=== PATIENT | female | born 1990 | race Hispanic/Latino ===

== ENCOUNTER 2016-10-24 16:14 | Emergency (ER) | payer OTHER ==
[2016-10-24 16:24] VITALS: BMI 29.0
[2016-10-24] MEDS ORDERED: Sodium Chloride 0.9% 1,000 ML IV STA (16:33)
--- NOTE | 2016-10-24 17:02 | ED PDOC ---
Arrival/HPI - General Chief Complaint: Abdominal Pain Time Seen by Provider: 10/24/16 16:17 Historian: Patient - History of Present Illness Narrative History of Present Illness (Text): 10/24/16 16:59 26yo female who present with complaint of tightening suprapubic abdominal pain since this morning with associated nausea. The mother who was by the bedside states patient has been having this pain intermittently for months now. Saw her APPLICATION PACKAGING CONSULTANT and was told she have ovarian cyst. she is s/p hysterectomy. Denies vomiting , diarrhea, constipation, dysuria, hematuria, fever, chills, back pain, vaginal discharge. Past Medical History - Provider Review Nursing Documentation Reviewed: Yes - Infectious Disease Hx of Infectious Diseases: None - Tetanus Immunization Tetanus Immunization: Unknown - Cardiac Hx Pacemaker: No - Pulmonary Hx Respiratory Disorders: No - Neurological Hx Paralysis: No - HEENT Hx HEENT Disorder: No - Renal Hx Renal Disorder: No - Endocrine/Metabolic Hx Endocrine Disorders: No - Hematological/Oncological Hx Blood Transfusions: No Hx Blood Transfusion Reaction: No - Integumentary Hx Dermatological Disorder: No - Musculoskeletal/Rheumatological Hx Musculoskeletal Disorders: No - Gastrointestinal Hx Gastrointestinal Disorders: No - Genitourinary/Gynecological Hx Genitourinary Disorders: Yes Hx Sexually Transmitted Diseases: Yes Other/Comment: cyst on overy - Psychiatric Hx Depression: Yes Hx Substance Use: No (unk) - Surgical History Hx Hysterectomy: Yes - Anesthesia Hx Anesthesia Reactions: No Hx Malignant Hyperthermia: No - Suicidal Assessment Feels Threatened In Home Enviroment: No Family/Social History - Physician Review Nursing Documentation Reviewed: Yes Family/Social History: Unknown Family HX Smoking Status: Former Smoker Hx Alcohol Use: Yes Frequency of alcohol use: Socially Hx Substance Use: No (unk) Hx Substance Use Treatment: No Allergies/Home Meds Allergies/Adverse Reactions: Allergies No Known Allergies Allergy (Verified 10/24/16 16:24) Home Medications: Home Meds Medication Instructions Recorded Confirmed Atorvastatin [Lipitor] 10 mg PO DAILY 10/24/16 10/24/16 Cetirizine HCl [Zyrtec] 10 mg PO DAILY 10/24/16 10/24/16 Review of Systems - Physician Review All systems were reviewed & negative as marked: Yes - Review of Systems Constitutional: Normal Eyes: Normal ENT: Normal Respiratory: Normal Cardiovascular: Normal Gastrointestinal: Abdominal Pain, Nausea. absent: Constipation, Diarrhea, Vomiting, Hematochezia, Hematemesis Genitourinary Female: Normal Musculoskeletal: Normal Skin: Normal Neurological: Normal Endocrine: Normal Hemo/Lymphatic: Normal Psychiatric: Normal Physical Exam Vital Signs Reviewed: Yes Vital Signs Temp Pulse Resp BP Pulse Ox 10/24/16 18:34 98 F 75 19 114/59 L 99 10/24/16 16:20 98.8 F 108 H 18 112/81 97 Temperature: Afebrile Blood Pressure: Normal Pulse: Regular Respiratory Rate: Normal Appearance: Positive for: Well-Appearing, Non-Toxic, Comfortable Pain Distress: None Mental Status: Positive for: Alert and Oriented X 3 - Systems Exam Head: Present: Atraumatic, Normocephalic Pupils: Present: PERRL Extroacular Muscles: Present: EOMI Conjunctiva: Present: Normal Mouth: Present: Moist Mucous Membranes Neck: Present: Normal Range of Motion Respiratory/Chest: Present: Clear to Auscultation, Good Air Exchange. No: Respiratory Distress, Accessory Muscle Use Cardiovascular: Present: Regular Rate and Rhythm, Normal S1, S2. No: Murmurs Abdomen: Present: Tenderness (suprapubic tenderness), Normal Bowel Sounds, Other (Soft). No: Distention, Peritoneal Signs, Rebound, Guarding, McBurney's Point Tender, Rovsing's Sign Present Back: Present: Normal Inspection Upper Extremity: Present: Normal Inspection. No: Cyanosis, Edema Lower Extremity: Present: Normal Inspection. No: Edema Neurological: Present: GCS=15, CN II-XII Intact, Speech Normal Skin: Present: Warm, Dry, Normal Color. No: Rashes Psychiatric: Present: Alert, Oriented x 3, Normal Insight, Normal Concentration Medical Decision Making ED Course and Treatment: 10/24/16 22:57 PT was comfortable in ED. Lab was unremarkable. Transvaginal US was negative PT reported intermittent left ear pain while in ED and exam was benign. She was referred to ENT and her APPLICATION PACKAGING CONSULTANT. TRT ED for any new or worsening symptoms. She was given Ibuprofen 600mg for her pain. TRT ED for any new or worsening symptoms - Lab Interpretations Lab Results: 10/24/16 16:45 10/24/16 16:45 Lab Results 10/24/16 16:45: Sodium 137, Potassium 4.4, Chloride 103, Carbon Dioxide 20 L, Anion Gap 18, BUN 12, Creatinine 0.8, Est GFR ( Amer) > 60, Est GFR (Non- Af Amer) > 60, Random Glucose 117 H, Calcium 9.4, Total Bilirubin 1.9 H, AST 26 , ALT 13, Alkaline Phosphatase 97, Total Protein 8.4 H, Albumin 4.8, Globulin 3.6, Albumin/Globulin Ratio 1.3, Lipase 23 10/24/16 16:45: PT 12.7 H, INR 1.18 H, APTT 32.4 H 10/24/16 16:45: WBC 6.4 D, RBC 5.00, Hgb 14.9, Hct 42.5, MCV 85.0, MCH 29.8, MCHC 35.1, RDW 12.6, Plt Count 305, MPV 9.8, Gran % 68.3 H, Lymph % (Auto) 23.6 , [place] % (Auto) 6.8 H, Eos % (Auto) 1.1 L, Baso % (Auto) 0.2, Gran # 4.35, Lymph # 1.5, [place] # 0.4, Eos # 0.1, Baso # 0.01 10/24/16 16:40: Urine Color yellow, Urine Appearance Slight-cloudy, Urine pH 6.0 , Ur Specific [place] >= 1.030, Urine Protein 30 H, Urine Glucose (UA) Negative , Urine Ketones >=80, Urine Blood Negative, Urine Nitrate Negative, Urine Bilirubin Moderate H, Urine Urobilinogen 2.0 H, Ur Leukocyte Esterase Negative, Urine RBC TEST NOT PERFORMED, Urine WBC 5 - 10, Ur Epithelial Cells 6 - 8, Amorphous Sediment Moderate, Urine Bacteria Small - RAD Interpretation Radiology Orders: 10/24/16 16:34 TRANSVAGINAL [US] Stat - Medication Orders Current Medication Orders: Discontinued Medications Sodium Chloride (Sodium Chloride 0.9%) 1,000 mls @ 1,000 mls/hr IV .Q1H STA Stop: 10/24/16 17:32 Last Admin: 10/24/16 16:52 Dose: 1,000 mls/hr Ketorolac Tromethamine (Toradol) 30 mg IVP STAT STA Stop: 10/24/16 16:34 Last Admin: 10/24/16 16:59 Dose: 30 mg Re-Assess: MERRY Pain Assessment Document 10/24/16 17:59 GMI (Rec: 10/24/16 18:[address] [facility] [id number]) Pain Reassessment Is this a pain reassessment? Yes Sleep Is patient sleeping during reassessment? No Presence of Pain Presence of Pain No Ondansetron HCl (Zofran Inj) 4 mg IVP STAT STA Stop: 10/24/16 16:34 Last Admin: 10/24/16 16:58 Dose: 4 mg Disposition/Present on Arrival - Present on Arrival Any Indicators Present on Arrival: No History of DVT/PE: No History of Uncontrolled Diabetes: No Urinary Catheter: No History of Decub. Ulcer: No History Surgical Site Infection Following: None - Disposition Have Diagnosis and Disposition been Completed?: Yes Diagnosis: Pelvic pain Disposition: HOME/ ROUTINE Disposition Time: 18:10 Patient Plan: Discharge Condition: STABLE Discharge Instructions (ExitCare): Pelvic Pain (ED) Additional Instructions: Follow up with your doctor/APPLICATION PACKAGING CONSULTANT Return to ED for any new symptoms Prescriptions: Ibuprofen [Motrin Tab] 600 mg PO Q6 #20 tab Referrals: Xavier Singh JD, MD [Primary Care Provider] - Follow up with primary Justin Garnett DO [Staff Provider] - Follow up with primary
[2016-10-24 17:10] LABS: BASO # 0.01 K/mm3 (0.0-2.0); BASO % 0.2 % (0.0-3.0); EOS # 0.1 (0.0-0.7); EOS % 1.1 % (1.5-5.0); GRAN # 4.35 (1.4-6.5); GRAN % 68.3 % (50.0-68.0); HEMOGLOBIN 14.9 gm/dL (12.0-16.0); LYMPH # 1.5 (1.2-3.4); LYMPH % 23.6 % (22.0-35.0); MEAN CORPUSCULAR HEMOGLOBIN 29.8 pg (25.0-35.0); MEAN CORPUSCULAR HGB CONC 35.1 g/dl (31.0-37.0); MEAN PLATELET VOLUME 9.8 fl (7.0-11.0); MONO # 0.4 (0.1-0.6); MONO % 6.8 % (1.0-6.0); PLATELET COUNT 305 10^3/uL (120.0-450.0); RED CELL DISTRIBUTION WIDTH 12.6 % (11.5-14.5); WHITE BLOOD COUNT 6.4 10^3/ul (4.5-11.0)
[2016-10-24 17:11] LABS: URINE BILIRUBIN MODERATE (NEGATIVE); URINE BLOOD NEGATIVE (NEGATIVE); URINE GLUCOSE (UA) NEGATIVE (NEGATIVE); URINE LEUKOCYTE ESTERASE NEGATIVE Leu/uL (NEGATIVE); URINE NITRATE NEGATIVE (NEGATIVE); URINE PROTEIN 30 mg/dL (<30 mg/dL)
[2016-10-24 17:13] LABS: URINE APPEARANCE SLIGHT-CLOUDY (CLEAR)
[2016-10-24 17:14] LABS: URINE AMORPHOUS SEDIMENT MODERATE; URINE BACTERIA SMALL (NEG)
[2016-10-24 17:15] LABS: ALB/GLOB RATIO 1.3 (1.1-1.8); ALBUMIN 4.8 g/dL (3.0-4.8); ALT/SGPT 13 U/L (7-56); AST/SGOT 26 U/L (15-39); BLOOD UREA NITROGEN 12 mg/dL (7-21); CALCIUM 9.4 mg/dL (8.4-10.5); GFR AFRICAN-AMERICAN > 60; GFR NON-AFRICAN AMERICAN > 60; LIPASE 23 U/L (23-300)
[2016-10-24 17:24] LABS: INR 1.18 (0.93-1.08); PARTIAL THROMBOPLASTIN TIME 32.4 Seconds (23.7-30.8); PROTHROMBIN TIME 12.7 Seconds (9.9-11.8)
--- NOTE | 2016-10-24 18:04 | US ---
EXAM: US Pelvis, Transvaginal CLINICAL HISTORY: 26 years old, female; Pain; Pelvic pain; Prior surgery; Surgery date: 6+ months; Surgery type: Hysterectomy; LMP 6 years ago TECHNIQUE: Real-time transvaginal pelvic ultrasound (complete) with image documentation. Transvaginal imaging was used for better evaluation of the endometrium and adnexa. EXAM DATE/TIME: 10/24/2016 4:34 PM COMPARISON: Prior images are not available for review. Correlation is made with a report dated 09/11/16 FINDINGS: Uterus: Uterus is surgically absent. Right ovary: Right ovary measures 3.4 1.9 x 3 cm.There are multiple small follicles. There is intraovarian blood flow. Left ovary: Left ovary is not identified. Free fluid: There is trace fluid in the right adnexa IMPRESSION: Hysterectomy nonvisualization of the left ovary; normal appearing right ovary, no torsion
[2016-10-24 18:35] VITALS: BP 114/59; PULSE 75; RESP 19; TEMP 98; O2SAT 99
== END 2016-10-24 18:38 | disposition home or self-care (01) ==
LOC: ED 16:14
DX: R10.2 Pelvic and perineal pain (principal)
CPT/HCPCS: 76830; 80053; 81001; 83690; 85025; 85610; 85730; 87086; 96361; 96374; 96375; 99284; J1885; J2405; J7040

== ENCOUNTER 2016-10-26 08:09 | Inpatient (IN) | payer OTHER, MEDICAID ==
[2016-10-26 08:35] VITALS: BMI 29.5
--- NOTE | 2016-10-26 09:20 | ED PDOC ---
Arrival/HPI - General Chief Complaint: Psychiatric Evaluation Time Seen by Provider: 10/26/16 08:38 Historian: Patient - History of Present Illness Narrative History of Present Illness (Text): 10/26/16 09:15 A 26 year old female patient presents to the emergency department complaining of depression. Patient is refusing to speak, however she does answer yes or no questions with nodding head movements. HPI and ROS limited due to patients state. PMD: Dr. Xavier Singh Past Medical History - Provider Review Nursing Documentation Reviewed: Yes - Infectious Disease Hx of Infectious Diseases: None - Tetanus Immunization Tetanus Immunization: Unknown - Cardiac Hx Pacemaker: No - Pulmonary Hx Respiratory Disorders: No - Neurological Hx Paralysis: No - HEENT Hx HEENT Disorder: No - Renal Hx Renal Disorder: No - Endocrine/Metabolic Hx Endocrine Disorders: No - Hematological/Oncological Hx Blood Transfusions: No Hx Blood Transfusion Reaction: No - Integumentary Hx Dermatological Disorder: No - Musculoskeletal/Rheumatological Hx Musculoskeletal Disorders: No - Gastrointestinal Hx Gastrointestinal Disorders: No - Genitourinary/Gynecological Hx Genitourinary Disorders: Yes Hx Sexually Transmitted Diseases: Yes Other/Comment: cyst on overy - Psychiatric Hx Depression: Yes Hx Substance Use: No (unk) - Surgical History Hx Hysterectomy: Yes - Anesthesia Hx Anesthesia Reactions: No Hx Malignant Hyperthermia: No - Suicidal Assessment Feels Threatened In Home Enviroment: No Family/Social History - Physician Review Nursing Documentation Reviewed: Yes Family/Social History: No Known Family HX Smoking Status: Former Smoker Hx Alcohol Use: No Hx Substance Use: No (unk) Hx Substance Use Treatment: No Allergies/Home Meds Allergies/Adverse Reactions: Allergies No Known Allergies Allergy (Verified 10/26/16 09:13) Home Medications: Home Meds Medication Instructions Recorded Confirmed Atorvastatin [Lipitor] 10 mg PO DAILY 10/24/16 10/24/16 Cetirizine HCl [Zyrtec] 10 mg PO DAILY 10/24/16 10/24/16 Review of Systems - Review of Systems Systems not reviewed;Unavailable: Acuity of Condition Physical Exam Vital Signs Reviewed: Yes Vital Signs Temp Pulse Resp BP Pulse Ox 10/26/16 16:55 70 18 107/73 100 10/26/16 13:20 80 18 119/80 99 10/26/16 11:00 72 16 122/77 99 10/26/16 08:35 98.2 F 72 18 122/84 97 Temperature: Afebrile Blood Pressure: Normal Pulse: Regular Respiratory Rate: Normal Appearance: Positive for: Well-Appearing, Non-Toxic, Comfortable Pain Distress: None - Systems Exam Head: Present: Atraumatic, Normocephalic Pupils: Present: PERRL Extroacular Muscles: Present: EOMI Conjunctiva: Present: Normal Mouth: Present: Moist Mucous Membranes Neck: Present: Normal Range of Motion Respiratory/Chest: Present: Clear to Auscultation, Good Air Exchange. No: Respiratory Distress, Accessory Muscle Use Cardiovascular: Present: Regular Rate and Rhythm, Normal S1, S2. No: Murmurs Abdomen: Present: Normal Bowel Sounds. No: Tenderness, Distention, Peritoneal Signs Back: Present: Normal Inspection Upper Extremity: Present: Normal Inspection. No: Cyanosis, Edema Lower Extremity: Present: Normal Inspection. No: Edema Neurological: Present: GCS=15, CN II-XII Intact, Speech Normal Skin: Present: Warm, Dry, Normal Color. No: Rashes Psychiatric: Present: Alert, Depressed Mood Medical Decision Making ED Course and Treatment: 10/26/16 09:25 Impression: A 26 year old female with depression. Plan: -- EKG -- Labs -- Urinalysis -- Reassess and disposition Prior Visits: Notes and results from previous visits were reviewed. On 10/24/2016 patient came in complaining of abdominal pain. Patient was discharged home. Progress Notes: 10/26/16 11:01 Seen and evaluated by Dr. Crowley. Patient is still nonverbal. Dr. Crowley Place medication orders, and will reevaluate the patient for possible admission or screening. 10/26/16 13:26 Patient is now speaking, but is extremely uncooperative. Has been seen by crisis and will need to be screened. At this point patient will be placed on one -to-one rather than physical restraints and she will be reevaluated for possible physical restraints. 10/26/16 15:35 EKG shows normal sinus rhythm rate approximately 65 with a sinus arrhythmia and no acute ST or T-wave changes 10/26/16 17:50 Care of this patient will be endorsed to the night emergency department physician waiting for [facility] screeners and final disposition. - Lab Interpretations Lab Results: 10/26/16 09:30 10/26/16 09:30 Lab Results 10/26/16 13:20: Urine Opiates Screen Negative, Urine Methadone Screen Negative, Ur Barbiturates Screen Negative, Ur Phencyclidine Scrn Negative, Ur Amphetamines Screen Negative, U Benzodiazepines Scrn Negative, U Oth Cocaine Metabols Negative, U Cannabinoids Screen Negative 10/26/16 10:34: Urine Color Yellow, Urine Appearance Sl cloudy, Urine pH 6.0, Ur Specific [place] 1.025, Urine Protein 30 H, Urine Glucose (UA) Negative, Urine Ketones 15 H, Urine Blood Negative, Urine Nitrate Negative, Urine Bilirubin Small H, Urine Urobilinogen 0.2, Ur Leukocyte Esterase Negative, Urine RBC 0 - 2, Urine WBC 0 - 2, Ur Epithelial Cells 0 - 2, Calcium Oxalate Crystal Few, Urine Bacteria Few, Urine HCG, Qual Negative 10/26/16 09:30: Alcohol, Quantitative < 10 10/26/16 09:30: Salicylates < 1 L, Acetaminophen < 10.0 L 10/26/16 09:30: Sodium 143, Potassium 4.0, Chloride 108 H, Carbon Dioxide 25, Anion Gap 14, BUN 8, Creatinine 0.8, Est GFR ( Amer) > 60, Est GFR (Non- Af Amer) > 60, Random Glucose 88, Calcium 9.6, Total Bilirubin 1.1, AST 20, ALT 22, Alkaline Phosphatase 95, Total Creatine Kinase 35, Total Protein 7.7, Albumin 4.3, Globulin 3.3, Albumin/Globulin Ratio 1.3 10/26/16 09:30: WBC 5.4, RBC 4.73, Hgb 13.9, Hct 40.7, MCV 86.0, MCH 29.4, MCHC 34.2, RDW 12.9, Plt Count 278, MPV 9.8, Gran % 58.5, Lymph % (Auto) 29.3, [place] % (Auto) 10.3 H, Eos % (Auto) 1.5, Baso % (Auto) 0.4, Gran # 3.14, Lymph # 1.6, [place] # 0.6, Eos # 0.1, Baso # 0.02 I have reviewed the lab results: Yes - RAD Interpretation Radiology Orders: 10/26/16 14:27 CHEST PORTABLE [RAD] Stat Chest 1 view is read by the radiologist shows no acute findings Loss Prevention Consultant: Radiologist - Medication Orders Current Medication Orders: Lorazepam (Ativan) 2 mg IM Q6H PRN; Protocol PRN Reason: agitation/catatonia/aggression Ziprasidone (Geodon Inj) 20 mg IM Q6H PRN; Protocol PRN Reason: severe agitation Discontinued Medications Lorazepam (Ativan) 2 mg PO STAT STA PRN Reason: Protocol Stop: 10/26/16 10:58 Last Admin: 10/26/16 11:13 Dose: 2 mg Risperidone (Risperdal Oral Soln) 1 mg PO STAT STA PRN Reason: Protocol Stop: 10/26/16 10:58 Last Admin: 10/26/16 11:14 Dose: 1 mg - Scribe Statement The provider has reviewed the documentation as recorded by the [facility] training under Liane Bello Provider Scribe Attestation: All medical record entries made by the Scribe were at my direction and personally dictated by me. I have reviewed the chart and agree that the record accurately reflects my personal performance of the history, physical exam, medical decision making, and the department course for this patient. I have also personally directed, reviewed, and agree with the discharge instructions and disposition. Disposition/Present on Arrival - Present on Arrival Any Indicators Present on Arrival: No History of DVT/PE: No History of Uncontrolled Diabetes: No Urinary Catheter: No History of Decub. Ulcer: No History Surgical Site Infection Following: None - Disposition Have Diagnosis and Disposition been Completed?: Yes Diagnosis: Schizoaffective disorder Disposition Time: 18:37 Condition: GOOD Referrals: Xavier Singh JD, MD [Primary Care Provider] - Follow up with primary
[2016-10-26 09:49] LABS: BASO # 0.02 K/mm3 (0.0-2.0); BASO % 0.4 % (0.0-3.0); EOS # 0.1 (0.0-0.7); EOS % 1.5 % (1.5-5.0); GRAN # 3.14 (1.4-6.5); GRAN % 58.5 % (50.0-68.0); HEMOGLOBIN 13.9 gm/dL (12.0-16.0); LYMPH # 1.6 (1.2-3.4); LYMPH % 29.3 % (22.0-35.0); MEAN CORPUSCULAR HEMOGLOBIN 29.4 pg (25.0-35.0); MEAN CORPUSCULAR HGB CONC 34.2 g/dl (31.0-37.0); MEAN PLATELET VOLUME 9.8 fl (7.0-11.0); MONO # 0.6 (0.1-0.6); MONO % 10.3 % (1.0-6.0); PLATELET COUNT 278 10^3/uL (120.0-450.0); RBC 4.73 10^6/uL (3.5-6.1); RED CELL DISTRIBUTION WIDTH 12.9 % (11.5-14.5); WHITE BLOOD COUNT 5.4 10^3/ul (4.5-11.0)
[2016-10-26 09:59] LABS: ALB/GLOB RATIO 1.3 (1.1-1.8); ALBUMIN 4.3 g/dL (3.0-4.8); ALT/SGPT 22 U/L (7-56); AST/SGOT 20 U/L (15-39); BLOOD UREA NITROGEN 8 mg/dL (7-21); CALCIUM 9.6 mg/dL (8.4-10.5); GFR AFRICAN-AMERICAN > 60; GFR NON-AFRICAN AMERICAN > 60
[2016-10-26 10:23] LABS: SALICYLATE < 1 mg/dL (2.0-20.0)
[2016-10-26 10:30] LABS: ACETAMINOPHEN < 10.0 ug/ml (10.0-20.0)
[2016-10-26 10:43] LABS: URINE BILIRUBIN SMALL (NEGATIVE); URINE BLOOD NEGATIVE (NEGATIVE); URINE GLUCOSE (UA) NEGATIVE (NEGATIVE); URINE LEUKOCYTE ESTERASE NEGATIVE Leu/uL (NEGATIVE); URINE NITRATE NEGATIVE (NEGATIVE); URINE PROTEIN 30 mg/dL (<30 mg/dL); URINE UROBILINOGEN 0.2 E.U./dL (<1 E.U./dL)
[2016-10-26 10:44] LABS: URINE COLOR YELLOW (YELLOW)
[2016-10-26 10:51] LABS: URINE APPEARANCE SL CLOUDY (CLEAR); URINE EPITHELIAL CELLS 0 - 2 /hpf (0-5); URINE WBC 0 - 2 /hpf (0-6)
[2016-10-26 10:52] LABS: HCG,QUALITATIVE URINE NEGATIVE (NEGATIVE); URINE BACTERIA FEW (NEG); URINE CALCIUM OXALATE CRYSTALS FEW /hpf; URINE RBC 0 - 2 /hpf (0-2)
[2016-10-26 13:48] LABS: BARBITURATES, UR NEGATIVE (NEGATIVE); BENZODIAZEPINES, UR NEGATIVE (NEGATIVE); OPIATES, UR NEGATIVE (NEGATIVE); PHENCYCLIDINE, UR NEGATIVE (NEGATIVE)
--- NOTE | 2016-10-26 17:16 | RAD ---
HISTORY: PES COMPARISON: Prior chest radiograph 11/26/2015. FINDINGS: LUNGS: No active pulmonary disease. PLEURA: No significant pleural effusion identified, no pneumothorax apparent. CARDIOVASCULAR: Normal. OSSEOUS STRUCTURES: No significant abnormalities. VISUALIZED UPPER ABDOMEN: Normal. OTHER FINDINGS: None. IMPRESSION: No active disease. No significant interval change compared to 11/26/2015 radiograph.
--- NOTE | 2016-10-26 18:53 | CARD ---
APPROVED REPORT EKG Measurement Heart [id number] ID [id number] <Conclusion> Normal sinus rhythm with sinus arrhythmia Normal ECG
--- NOTE | 2016-10-27 01:24 | ED PDOC ---
Physical Exam Vital Signs Reviewed: Yes Temperature: Afebrile Blood Pressure: Normal Pulse: Regular Respiratory Rate: Normal Appearance: Positive for: Non-Toxic Pain Distress: None Mental Status: Positive for: Alert and Oriented X 3 <Sandro Waddell - Last Filed: 10/27/16 01:22> Medical Decision Making <Sandro Waddell - Last Filed: 10/27/16 01:22> - RAD Interpretation Seo Consultant: Radiologist <Corbin Stallings - Last Filed: 10/27/16 10:10> ED Course and Treatment: 10/26/16 19:00 Case endorsed to me by Dr. Cruz. Patient presents to the emergency department complaining of depression. Patient medically cleared, pending [facility] psych evaluation. (Sandro Waddell) 10/27/16 07:00 Case endorsed to me by Dr. Waddell. Patient is pending follow up on 2nd screening for reevaluation by [facility] psych evaluation. 10/27/16 09:02 Chest X-ray: Creator : Vasiliy Ricketts MD COMPARISON: Prior chest radiograph 11/26/2015. FINDINGS: LUNGS: No active pulmonary disease. PLEURA: No significant pleural effusion identified, no pneumothorax apparent. CARDIOVASCULAR: Normal. OSSEOUS STRUCTURES: No significant abnormalities. VISUALIZED UPPER ABDOMEN: Normal. OTHER FINDINGS: None. IMPRESSION: No active disease. No significant interval change compared to 2015 radiograph. 10/27/16 10:09 Patient was reevaluated by Dr. Carline Saleem who will admit her under her service for f/o schizoaffective disorder. (Corbin Stallings) - Lab Interpretations Lab Results: 10/26/16 09:30 10/26/16 09:30 Lab Results 10/26/16 13:20: Urine Opiates Screen Negative, Urine Methadone Screen Negative, Ur Barbiturates Screen Negative, Ur Phencyclidine Scrn Negative, Ur Amphetamines Screen Negative, U Benzodiazepines Scrn Negative, U Oth Cocaine Metabols Negative, U Cannabinoids Screen Negative 10/26/16 10:34: Urine Color Yellow, Urine Appearance Sl cloudy, Urine pH 6.0, Ur Specific [place] 1.025, Urine Protein 30 H, Urine Glucose (UA) Negative, Urine Ketones 15 H, Urine Blood Negative, Urine Nitrate Negative, Urine Bilirubin Small H, Urine Urobilinogen 0.2, Ur Leukocyte Esterase Negative, Urine RBC 0 - 2, Urine WBC 0 - 2, Ur Epithelial Cells 0 - 2, Calcium Oxalate Crystal Few, Urine Bacteria Few, Urine HCG, Qual Negative 10/26/16 09:30: Alcohol, Quantitative < 10 10/26/16 09:30: Salicylates < 1 L, Acetaminophen < 10.0 L 10/26/16 09:30: Sodium 143, Potassium 4.0, Chloride 108 H, Carbon Dioxide 25, Anion Gap 14, BUN 8, Creatinine 0.8, Est GFR ( Amer) > 60, Est GFR (Non- Af Amer) > 60, Random Glucose 88, Calcium 9.6, Total Bilirubin 1.1, AST 20, ALT 22, Alkaline Phosphatase 95, Total Creatine Kinase 35, Total Protein 7.7, Albumin 4.3, Globulin 3.3, Albumin/Globulin Ratio 1.3 10/26/16 09:30: WBC 5.4, RBC 4.73, Hgb 13.9, Hct 40.7, MCV 86.0, MCH 29.4, MCHC 34.2, RDW 12.9, Plt Count 278, MPV 9.8, Gran % 58.5, Lymph % (Auto) 29.3, [place] % (Auto) 10.3 H, Eos % (Auto) 1.5, Baso % (Auto) 0.4, Gran # 3.14, Lymph # 1.6, [place] # 0.6, Eos # 0.1, Baso # 0.02 - RAD Interpretation Radiology Orders: 10/26/16 14:27 CHEST PORTABLE [RAD] Stat - Medication Orders Current Medication Orders: Lorazepam (Ativan) 2 mg IM Q6H PRN; Protocol PRN Reason: agitation/catatonia/aggression Ziprasidone (Geodon Inj) 20 mg IM Q6H PRN; Protocol PRN Reason: severe agitation Discontinued Medications Lorazepam (Ativan) 2 mg PO STAT STA PRN Reason: Protocol Stop: 10/26/16 10:58 Last Admin: 10/26/16 11:13 Dose: 2 mg Risperidone (Risperdal Oral Soln) 1 mg PO STAT STA PRN Reason: Protocol Stop: 10/26/16 10:58 Last Admin: 10/26/16 11:14 Dose: 1 mg <Sandro Waddell - Last Filed: 10/27/16 01:22> - Scribe Statement The provider has reviewed the documentation as recorded by the Scribe <Corbin Stallings - Last Filed: 10/27/16 10:10> - Scribe Statement 10/27/2016 Corinne Crespoa Provider Scribe Attestation: All medical record entries made by the Scribe were at my direction and personally dictated by me. I have reviewed the chart and agree that the record accurately reflects my personal performance of the history, physical exam, medical decision making, and the department course for this patient. (Corbin Stallings) Disposition/Present on Arrival - Present on Arrival Any Indicators Present on Arrival: No History of DVT/PE: No History of Uncontrolled Diabetes: No Urinary Catheter: No History of Decub. Ulcer: No History Surgical Site Infection Following: None <ChanduzanaSandro - Last Filed: 10/27/16 01:22> - Present on Arrival Any Indicators Present on Arrival: No - Disposition Have Diagnosis and Disposition been Completed?: Yes Disposition Time: 10:10 Patient Plan: Admission <Corbin Stallings - Last Filed: 10/27/16 10:10> - Disposition Diagnosis: Schizoaffective disorder Disposition: HOSPITALIZED Patient Problems: Current Active Problems Problem Status Onset Schizoaffective disorder Acute Condition: FAIR Referrals: Xavier Singh JD, MD [Primary Care Provider] - Follow up with primary
[2016-10-27 10:21] VITALS: O2SAT 100
[2016-10-27] MEDS ORDERED: Magnesium Hydroxide Susp 30 ml UD PO PRN (11:38)
--- NOTE | 2016-10-27 12:43 | PCM.BM ---
<Sofia Foster - Last Filed: 10/27/16 12:40> Treatment Plan Problems - Problems identified on initial assessmt psychosis Date Initiated: 10/27/16 Time Initiated: 11:00 Assessment reference: NA Status: Active Priority: 1 agitation Date Initiated: 10/27/16 Time Initiated: 11:00 Assessment reference: NA Status: Active Priority: 2 high risk violence Date Initiated: 10/27/16 Time Initiated: 11:00 Assessment reference: NA Status: Active Priority: 3 medication adherence Date Initiated: 10/27/16 Time Initiated: 11:00 Assessment reference: NA Status: Active Priority: 4 ineffective mgt of thrrapeutic regimen Date Initiated: 10/27/16 Time Initiated: 11:00 Assessment reference: NA Status: Active Priority: 5 Treatment assets and liabiliti Patient Assests: ADL independent Patient Liabilities: live alone, poor support system, relationship conflicts ( homeless/uncooperative) - Milieu Protocol Maintain good personal hygiene: daily Encourage regular showers, daily Remind patient to perform daily oral care, daily Assist patient to perform ADL's Maintain personal safety: every shift Educate patient to report safety concerns to staff, every shift Monitor environment for contraband/sharps Medication safety: Monitor for expected outcome, potential side effects: every shift, Assess barriers to learning: every shift, Assess readiness for medication education: every shift Discharge/Continuing Care - Education Needs Education Needs: Patient Medication, Patient Diagnosis/Disease Process, Patient Coping Skills, Patient Placement options, Patient Community resources, Patient Activities of Daily Living, Patient Nutrition, Patient Health Practices/Safety - Discharge Discharge Criteria: Tolerates medication w/o severe side effects, Free of Suicidal thoughts, Free of paranoid thoughts, Free of agitation, Normal sleep pattern, Ability to care for self, Reduction of target symptoms Discharge to:: Home <Chiara Becerra - Last Filed: 11/01/16 15:51> Family Contact Family involvement: Famliy/SO not involved <Keyana Pak - Last Filed: 11/05/16 12:12>
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
--- NOTE | 2016-10-27 14:17 | CP.PCM.CON ---
History of Present Illness - History of Present Illness History of Present Illness: 26 yo female h/o schizoaffective ds presents with depression Review of Systems - Constitutional Constitutional: Headache Past Patient History - Infectious Disease Hx of Infectious Diseases: None - Tetanus Immunizations Tetanus Immunization: Unknown - Past Social History Smoking Status: Former Smoker - CARDIAC Hx Pacemaker: No - PULMONARY Hx Respiratory Disorders: No Hx Asthma: Yes - NEUROLOGICAL Hx Paralysis: No - HEENT Hx HEENT Problems: No - RENAL Hx Chronic Kidney Disease: No Hx Kidney Stones: Yes - ENDOCRINE/METABOLIC Hx Endocrine Disorders: No - HEMATOLOGICAL/ONCOLOGICAL Hx Blood Transfusions: No Hx Blood Transfusion Reaction: No - INTEGUMENTARY Hx Dermatological Problems: No - MUSCULOSKELETAL/RHEUMATOLOGICAL Hx Musculoskeletal Disorders: No - GASTROINTESTINAL Hx Gastrointestinal Disorders: No - GENITOURINARY/GYNECOLOGICAL Hx Genitourinary Disorders: Yes Hx Sexually Transmitted Disorders: Yes Other/Comment: cyst on overy - PSYCHIATRIC Hx Depression: Yes Hx Substance Use: No (unk) - SURGICAL HISTORY Hx Hysterectomy: Yes - ANESTHESIA Hx Anesthesia Reactions: No Hx Malignant Hyperthermia: No Meds Allergies/Adverse Reactions: Allergies Allergy/AdvReac Type Severity Reaction Status Date / Time No Known Allergies Allergy Verified 10/26/16 09:13 - Medications Medications: Current Medications Acetaminophen (Tylenol 325mg Tab) 650 mg PO Q4 PRN PRN Reason: Pain, Mild (1-3) Al Hydrox/Mg Hydrox/Simethicone (Maalox Plus 30 Ml) 30 ml PO DAILY PRN PRN Reason: Upset Stomach Lorazepam (Ativan) 2 mg IM Q6H PRN; Protocol PRN Reason: agitation/catatonia/aggression Lorazepam (Ativan) 0.5 mg PO [facility]HS [facility] PRN Reason: Protocol Magnesium Hydroxide (Milk Of Magnesia) 30 ml PO DAILY PRN PRN Reason: Constipation Mirtazapine (Remeron) 15 mg PO HS [facility] Quetiapine Fumarate (Seroquel) 50 mg PO AM[facility] PRN Reason: Protocol Ziprasidone (Geodon Inj) 20 mg IM Q6H PRN; Protocol PRN Reason: severe agitation Ziprasidone (Geodon Cap) 20 mg PO Q6H PRN; Protocol PRN Reason: agitation/psychosis Physical Exam - Constitutional Appears: No Acute Distress - Head Exam Head Exam: ATRAUMATIC, NORMAL INSPECTION, NORMOCEPHALIC - Eye Exam Eye Exam: EOMI, Normal appearance, PERRL Pupil Exam: PERRL - ENT Exam ENT Exam: Mucous Membranes Moist - Neck Exam Neck exam: Positive for: Normal Inspection - Respiratory Exam Respiratory Exam: Clear to Auscultation Bilateral, NORMAL BREATHING PATTERN - Cardiovascular Exam Cardiovascular Exam: REGULAR RHYTHM - GI/Abdominal Exam GI & Abdominal Exam: Normal Bowel Sounds, Soft - Neurological Exam Neurological exam: Oriented x3 - Psychiatric Exam Psychiatric exam: Depressed, Flat Affect - Skin Skin Exam: Normal Color, Warm Results - Vital Signs Recent Vital Signs: Last Vital Signs Temp 97.9 F 10/27/16 10:13 Pulse 72 10/27/16 10:13 Resp 18 10/27/16 10:13 BP 112/55 L 10/27/16 10:13 Pulse Ox 100 10/27/16 10:13 - Labs Result Diagrams: 10/26/16 09:30 10/26/16 09:30 Assessment & Plan (1) Headache Status: Acute (2) Schizoaffective disorder Status: Acute - Assessment and Plan (Free Text) Plan: tylenol prn, psych f/u - Date & Time Date: 10/27/16 Time: 13:30
--- NOTE | 2016-10-28 09:38 | CP.PCM.PN ---
Subjective - Date & Time of Evaluation Date of Evaluation: 10/28/16 Time of Evaluation: 09:25 - Subjective Subjective: headache slightly better today, more verbal, NAD Objective - Vital Signs/Intake and Output Vital Signs (last 24 hours): Temp Pulse Resp BP Pulse Ox 97.9 F 80 20 95/54 L 100 10/28/16 07:18 10/28/16 07:18 10/28/16 07:18 10/28/16 07:18 10/27/16 10:13 - Medications Medications: Current Medications Acetaminophen (Tylenol 325mg Tab) 650 mg PO Q4 PRN PRN Reason: Pain, Mild (1-3) Al Hydrox/Mg Hydrox/Simethicone (Maalox Plus 30 Ml) 30 ml PO DAILY PRN PRN Reason: Upset Stomach Lorazepam (Ativan) 2 mg IM Q6H PRN; Protocol PRN Reason: agitation/catatonia/aggression Lorazepam (Ativan) 0.5 mg PO AMHS [facility] PRN Reason: Protocol Last Admin: 10/27/16 21:40 Dose: 0.5 mg Lorazepam (Ativan) 0.5 mg PO TID PRN; Protocol PRN Reason: Agitation Last Admin: 10/27/16 16:18 Dose: 0.5 mg Magnesium Hydroxide (Milk Of Magnesia) 30 ml PO DAILY PRN PRN Reason: Constipation Mirtazapine (Remeron) 15 mg PO HS [facility] Last Admin: 10/27/16 21:40 Dose: 15 mg Quetiapine Fumarate (Seroquel) 50 mg PO AMHS [facility] PRN Reason: Protocol Last Admin: 10/27/16 21:40 Dose: 50 mg Ziprasidone (Geodon Inj) 20 mg IM Q6H PRN; Protocol PRN Reason: severe agitation Ziprasidone (Geodon Cap) 20 mg PO Q6H PRN; Protocol PRN Reason: agitation/psychosis Last Admin: 10/27/16 14:00 Dose: 20 mg - Respiratory Exam Respiratory Exam: Clear to Ausculation Bilateral, NORMAL BREATHING PATTERN - Cardiovascular Exam Cardiovascular Exam: REGULAR RHYTHM - GI/Abdominal Exam GI & Abdominal Exam: Soft, Normal Bowel Sounds - Extremities Exam Extremities Exam: Normal Inspection - Neurological Exam Neurological Exam: Alert, Awake, Oriented x3 - Psychiatric Exam Psychiatric exam: Depressed, Flat Affect - Skin Skin Exam: Dry, Warm Assessment and Plan (1) Headache Status: Acute (2) Schizoaffective disorder Status: Acute - Assessment and Plan (Free Text) Plan: tylenol prn, continue psych f/u and tx
--- NOTE | 2016-10-28 15:48 | PCM.PYCHPN ---
Psychiatric Progress Note - Psychiatric Progress Note Patient seen today, length of contact: 25min Patient Chief Complaint: "...." (pt was mute, was starring at this fiction and nonfiction writer prose) Problems Identified/Issues Discussed: Suicide/ homicide prevention, past psychiatric h/o, current psychiatric symptoms , medical problems, risk/benefits and alternatives of medications, medications compliance, coping strategies, substance abuse h/o, relapse prevention, importance of follow up with psychiatrist and therapist, discharge plan. Medical Problems: see medical notes Diagnostic Results: 10/26/16 09:30 10/26/16 09:30 Lab Results 10/26/16 13:20: Urine Opiates Screen Negative, Urine Methadone Screen Negative, Ur Barbiturates Screen Negative, Ur Phencyclidine Scrn Negative, Ur Amphetamines Screen Negative, U Benzodiazepines Scrn Negative, U Oth Cocaine Metabols Negative, U Cannabinoids Screen Negative 10/26/16 10:34: Urine Color Yellow, Urine Appearance Sl cloudy, Urine pH 6.0, Ur Specific [place] 1.025, Urine Protein 30 H, Urine Glucose (UA) Negative, Urine Ketones 15 H, Urine Blood Negative, Urine Nitrate Negative, Urine Bilirubin Small H, Urine Urobilinogen 0.2, Ur Leukocyte Esterase Negative, Urine RBC 0 - 2, Urine WBC 0 - 2, Ur Epithelial Cells 0 - 2, Calcium Oxalate Crystal Few, Urine Bacteria Few, Urine HCG, Qual Negative 10/26/16 09:30: Alcohol, Quantitative < 10 10/26/16 09:30: Salicylates < 1 L, Acetaminophen < 10.0 L 10/26/16 09:30: Sodium 143, Potassium 4.0, Chloride 108 H, Carbon Dioxide 25, Anion Gap 14, BUN 8, Creatinine 0.8, Est GFR ( Amer) > 60, Est GFR (Non- Af Amer) > 60, Random Glucose 88, Calcium 9.6, Total Bilirubin 1.1, AST 20, ALT 22, Alkaline Phosphatase 95, Total Creatine Kinase 35, Total Protein 7.7, Albumin 4.3, Globulin 3.3, Albumin/Globulin Ratio 1.3 10/26/16 09:30: WBC 5.4, RBC 4.73, Hgb 13.9, Hct 40.7, MCV 86.0, MCH 29.4, MCHC 34.2, RDW 12.9, Plt Count 278, MPV 9.8, Gran % 58.5, Lymph % (Auto) 29.3, [place] % (Auto) 10.3 H, Eos % (Auto) 1.5, Baso % (Auto) 0.4, Gran # 3.14, Lymph # 1.6, [place] # 0.6, Eos # 0.1, Baso # 0.02 Vital Signs Temp Pulse Resp BP Pulse Ox 10/28/16 07:18 97.9 F 80 20 95/54 L 10/27/16 16:00 76 102/68 10/27/16 10:13 97.9 F 72 18 112/55 L 100 10/27/16 00:42 97.8 F 70 16 92/58 L 99 10/26/16 16:55 70 18 107/73 100 10/26/16 13:20 80 18 119/80 99 10/26/16 11:00 72 16 122/77 99 10/26/16 08:35 98.2 F 72 18 122/84 97 DSM 5 Symptoms Update: Shortly pt is 26yo female with long h/o schizoaffective disorder, h/o inpatient hospitalizations, [place] [facility] August [place] came to the ED c/o headache and chest pain, pt was found to be catatonic, was not talking, was refusing to give UA, annmarie Chen was called, for catatonia this fiction and nonfiction writer prose recommended to give Ativan 2mg+irsperdal liquid PO, pt was compliant, this fiction and nonfiction writer prose recommended screening by [facility] for involuntary commitment, but during the interview by the screener over night, pt was in agreement for admission under voluntary status. who was identification technician last night recommended [facility] screening again, but pt was in agreement for voluntary admission. Pt initially was seen at ED, was not talking, was communicating with this fiction and nonfiction writer prose by nodding her head. pt obviously needs further evaluation and stabilization, meds initiation and titration. Abdoul attempted to speak to this patient at the morning time, patient presented to be catatonic, was staring at this fiction and nonfiction writer prose, not talking. as per nursing report patient has unpleasant attitude presented to be psychotic. Medication compliance is good. Patient tolerates medications well, no side effects observed or reported, aims 0 , no EPS. Impression: Schizoaffective disorder with catatonia Medication Change: Yes (Seroquel and Ativan increased) Medical Record Reviewed: Yes Consults ordered or reviewed: edical consult appreciated Mental Status Examination - Cognitive Function Orientation: Person Attention: Poor Concentration: Poor Association: Loose Fund of Knowledge: WNL - Mood Mood: Depressed, Anxious - Affect Affect: Flat - Formal Thought Process Formal Thought Process: Hallucinations, Delusions, Paranoia, Loosening of associations - Suicidal Ideation Suicidal Ideation: No - Homicidal Ideation Homicidal Ideation: No Goal/Treatment Plan - Goal/Treatment Plan Need for Continued Stay: Remain at risks for inpatient hospitalization, Severe depression anxiety, Discharge may exacerbated symptoms, Severe functional impairment Progress Toward Problem(s) and Goals/Treatment Plan: milieu/structure/supportive therapy will resume meds for the medical issues: Atorvastatin [Lipitor] 10 mg PO DAILY Ibuprofen [Motrin Tab] 600 mg PO Q6 Spironolactone [Aldactone] 25 mg PO DAILY as per Spironolactone [Aldactone] 50 mg PO HS as per seroquel will be started 50mg po amhs for psychosis will give remeron 15mg po hs for depression/insomnia will start ativan 0.5mg po 3 times a day for catatonia medical consult appreciated will give PRN meds will monitor closely pharmacy was called, pt was noncompliant with psychotiropic meds for the past year. Estimated Date of D/C: 11/04/16 (we'll monitor closely)
--- NOTE | 2016-10-29 11:17 | CP.PCM.PN ---
Subjective - Date & Time of Evaluation Date of Evaluation: 10/29/16 Time of Evaluation: 10:15 - Subjective Subjective: lethargic, arousable NAD Objective - Vital Signs/Intake and Output Vital Signs (last 24 hours): Temp Pulse Resp BP Pulse Ox 97.2 F L 99 H 20 97/71 L 100 10/29/16 07:28 10/29/16 07:28 10/29/16 07:28 10/29/16 07:28 10/27/16 10:13 - Medications Medications: Current Medications Acetaminophen (Tylenol 325mg Tab) 650 mg PO Q4 PRN PRN Reason: Pain, Mild (1-3) Al Hydrox/Mg Hydrox/Simethicone (Maalox Plus 30 Ml) 30 ml PO DAILY PRN PRN Reason: Upset Stomach Lorazepam (Ativan) 2 mg IM Q6H PRN; Protocol PRN Reason: agitation/catatonia/aggression Lorazepam (Ativan) 0.5 mg PO AMHS [facility] PRN Reason: Protocol Last Admin: 10/29/16 10:00 Dose: 0.5 mg Lorazepam (Ativan) 0.5 mg PO TID PRN; Protocol PRN Reason: Agitation Last Admin: 10/27/16 16:18 Dose: 0.5 mg Lorazepam (Ativan) 0.5 mg PO 1600 [facility] PRN Reason: Protocol Last Admin: 10/28/16 16:41 Dose: 0.5 mg Magnesium Hydroxide (Milk Of Magnesia) 30 ml PO DAILY PRN PRN Reason: Constipation Mirtazapine (Remeron) 15 mg PO HS [facility] Last Admin: 10/28/16 22:13 Dose: 15 mg Quetiapine Fumarate (Seroquel) 100 mg PO AM[facility] PRN Reason: Protocol Last Admin: 10/29/16 10:01 Dose: 100 mg Ziprasidone (Geodon Inj) 20 mg IM Q6H PRN; Protocol PRN Reason: severe agitation Ziprasidone (Geodon Cap) 20 mg PO Q6H PRN; Protocol PRN Reason: agitation/psychosis Last Admin: 10/29/16 00:11 Dose: 20 mg - Respiratory Exam Respiratory Exam: Clear to Ausculation Bilateral, NORMAL BREATHING PATTERN - Cardiovascular Exam Cardiovascular Exam: REGULAR RHYTHM - GI/Abdominal Exam GI & Abdominal Exam: Soft, Normal Bowel Sounds - Neurological Exam Neurological Exam: Alert, Altered, Awake - Psychiatric Exam Psychiatric exam: Depressed, Flat Affect Assessment and Plan (1) Headache Status: Acute (2) Schizoaffective disorder Status: Acute - Assessment and Plan (Free Text) Plan: continue present rx, medically stable
--- NOTE | 2016-10-29 16:10 | PCM.PYCHPN ---
Psychiatric Progress Note - Psychiatric Progress Note Patient seen today, length of contact: 25min Patient Chief Complaint: "why you wake me up?" Problems Identified/Issues Discussed: Suicide/ homicide prevention, past psychiatric h/o, current psychiatric symptoms , medical problems, risk/benefits and alternatives of medications, medications compliance, coping strategies, substance abuse h/o, relapse prevention, importance of follow up with psychiatrist and therapist, discharge plan. Medical Problems: see medical notes Diagnostic Results: 10/26/16 09:30 10/26/16 09:30 Lab Results 10/26/16 13:20: Urine Opiates Screen Negative, Urine Methadone Screen Negative, Ur Barbiturates Screen Negative, Ur Phencyclidine Scrn Negative, Ur Amphetamines Screen Negative, U Benzodiazepines Scrn Negative, U Oth Cocaine Metabols Negative, U Cannabinoids Screen Negative 10/26/16 10:34: Urine Color Yellow, Urine Appearance Sl cloudy, Urine pH 6.0, Ur Specific [place] 1.025, Urine Protein 30 H, Urine Glucose (UA) Negative, Urine Ketones 15 H, Urine Blood Negative, Urine Nitrate Negative, Urine Bilirubin Small H, Urine Urobilinogen 0.2, Ur Leukocyte Esterase Negative, Urine RBC 0 - 2, Urine WBC 0 - 2, Ur Epithelial Cells 0 - 2, Calcium Oxalate Crystal Few, Urine Bacteria Few, Urine HCG, Qual Negative 10/26/16 09:30: Alcohol, Quantitative < 10 10/26/16 09:30: Salicylates < 1 L, Acetaminophen < 10.0 L 10/26/16 09:30: Sodium 143, Potassium 4.0, Chloride 108 H, Carbon Dioxide 25, Anion Gap 14, BUN 8, Creatinine 0.8, Est GFR ( Amer) > 60, Est GFR (Non- Af Amer) > 60, Random Glucose 88, Calcium 9.6, Total Bilirubin 1.1, AST 20, ALT 22, Alkaline Phosphatase 95, Total Creatine Kinase 35, Total Protein 7.7, Albumin 4.3, Globulin 3.3, Albumin/Globulin Ratio 1.3 10/26/16 09:30: WBC 5.4, RBC 4.73, Hgb 13.9, Hct 40.7, MCV 86.0, MCH 29.4, MCHC 34.2, RDW 12.9, Plt Count 278, MPV 9.8, Gran % 58.5, Lymph % (Auto) 29.3, [place] % (Auto) 10.3 H, Eos % (Auto) 1.5, Baso % (Auto) 0.4, Gran # 3.14, Lymph # 1.6, Gove # 0.6, Eos # 0.1, Baso # 0.02 Vital Signs Temp Pulse Resp BP Pulse Ox 10/28/16 07:18 97.9 F 80 20 95/54 L 10/27/16 16:00 76 102/68 10/27/16 10:13 97.9 F 72 18 112/55 L 100 10/27/16 00:42 97.8 F 70 16 92/58 L 99 10/26/16 16:55 70 18 107/73 100 10/26/16 13:20 80 18 119/80 99 10/26/16 11:00 72 16 122/77 99 10/26/16 08:35 98.2 F 72 18 122/84 97 DSM 5 Symptoms Update: Shortly pt is 26yo female with long h/o schizoaffective disorder, h/o inpatient hospitalizations, [place] [facility] [place] in August [place] came to the ED c/o headache and chest pain, pt was found to be catatonic, was not talking, was refusing to give UA, annmarie Chen was called, for catatonia this sheet writer recommended to give Ativan 2mg+irsperdal liquid PO, pt was compliant, this sheet writer recommended screening by [facility] [place] for involuntary commitment, but during the interview by the screener over night, pt was in agreement for admission under voluntary status. who was business system consultant last night recommended [facility] screening again, but pt was in agreement for voluntary admission. Pt initially was seen at ED, was not talking, was communicating with this sheet writer by nodding her head. pt obviously needs further evaluation and stabilization, meds initiation and titration. pt was seen at the tx team meeting, seems to be angry and irritable, pt was unhappy that this sheet writer woke pt up, pt said angry "would you like if I could wake you up?", good part that pt started to talk, but bad part pt is irritable and angry. pt is paranoid, refused to sign consent. then left the room. as per nursing report patient has unpleasant attitude presented to be psychotic , but meds compliance is good. Patient tolerates medications well, no side effects observed or reported, aims 0 , no EPS. Impression: Schizoaffective disorder with catatonia Medication Change: Yes (Seroquel and Ativan increased 10/28/16) Medical Record Reviewed: Yes Consults ordered or reviewed: edical consult appreciated Mental Status Examination - Cognitive Function Orientation: Person Attention: Poor Concentration: Poor Association: Loose Fund of Knowledge: WNL - Mood Mood: Depressed, Anxious - Affect Affect: Flat - Formal Thought Process Formal Thought Process: Hallucinations, Delusions, Paranoia, Loosening of associations - Suicidal Ideation Suicidal Ideation: No - Homicidal Ideation Homicidal Ideation: No Goal/Treatment Plan - Goal/Treatment Plan Need for Continued Stay: Remain at risks for inpatient hospitalization, Severe depression anxiety, Discharge may exacerbated symptoms, Severe functional impairment Progress Toward Problem(s) and Goals/Treatment Plan: milieu/structure/supportive therapy will resume meds for the medical issues: Atorvastatin [Lipitor] 10 mg PO DAILY Ibuprofen [Motrin Tab] 600 mg PO Q6 Spironolactone [Aldactone] 25 mg PO DAILY as per Spironolactone [Aldactone] 50 mg PO HS as per seroquel 100mg po [facility] for psychosis will give remeron 15mg po hs for depression/insomnia will start ativan 0.5mg po 3 times a day for catatonia medical consult appreciated will give PRN meds will monitor closely pharmacy was called, pt was noncompliant with psychotiropic meds for the past year. Estimated Date of D/C: 11/04/16 (we'll monitor closely)
[2016-10-29] MEDS: Alum-Mag Hydrox-Simethicone Susp (30 mL) PO PRN (20:19)
--- NOTE | 2016-10-30 09:25 | PCM.PYCHPN ---
Psychiatric Progress Note - Psychiatric Progress Note Patient seen today, length of contact: 25min Patient Chief Complaint: "depressed" Problems Identified/Issues Discussed: I reviewed assessment and recent notes. Patient has been labile and difficult on the unit. Can be verbally abusive to staff and requires redirection. I met with patient at bedside this morning. Grooming is adequate. Patient is minimally cooperative in that she responds to my questioning with very brief affirmations or denials. She is still depressed and hopeless. Denies current suicidal thoughts but did have them on the unit at admission. She also denies hallucinations. Patient appears irritable and depressed. Responses are relevant to questioning and consistent with repeated questioning. Patient has been taking her medications and denies any side effects. There have been no behavioral issues overnight. Impulse control is tenuous and behavior remains unpredictable. Diagnostic Results: Schizoaffective disorder with catatonia Medication Change: No ( ) Medical Record Reviewed: Yes Mental Status Examination - Cognitive Function Orientation: Person Attention: Poor Concentration: Poor Association: Loose Fund of Knowledge: WNL - Mood Mood: Depressed, Anxious - Affect Affect: Flat - Formal Thought Process Formal Thought Process: Hallucinations, Delusions, Paranoia, Loosening of associations - Suicidal Ideation Suicidal Ideation: No - Homicidal Ideation Homicidal Ideation: No Goal/Treatment Plan - Goal/Treatment Plan Need for Continued Stay: Remain at risks for inpatient hospitalization, Severe depression anxiety, Discharge may exacerbated symptoms, Severe functional impairment Progress Toward Problem(s) and Goals/Treatment Plan: * c/w current tx and plan * No new weekend labs * Vitals reviewed and noted below: Selected Entries 10/29/16 10/29/16 07:28 16:29 Temperature 97.2 F L 98.4 F Pulse Rate 99 H 103 H Respiratory 20 Rate Blood Pressure 97/71 L 98/67 L Estimated Date of D/C: 11/04/16 (we'll monitor closely)
--- NOTE | 2016-10-30 09:27 | CP.PCM.PN ---
Subjective - Date & Time of Evaluation Date of Evaluation: 10/30/16 Time of Evaluation: 09:15 - Subjective Subjective: nad Objective - Vital Signs/Intake and Output Vital Signs (last 24 hours): Temp Pulse Resp BP Pulse Ox 98.4 F 103 H 20 98/67 L 100 10/29/16 16:29 10/29/16 16:29 10/29/16 07:28 10/29/16 16:29 10/27/16 10:13 - Medications Medications: Current Medications Acetaminophen (Tylenol 325mg Tab) 650 mg PO Q4 PRN PRN Reason: Pain, Mild (1-3) Al Hydrox/Mg Hydrox/Simethicone (Maalox Plus 30 Ml) 30 ml PO DAILY PRN PRN Reason: Upset Stomach Last Admin: 10/29/16 20:19 Dose: 30 ml Lorazepam (Ativan) 2 mg IM Q6H PRN; Protocol PRN Reason: agitation/catatonia/aggression Lorazepam (Ativan) 0.5 mg PO [facility] PRN Reason: Protocol Last Admin: 10/29/16 21:28 Dose: 0.5 mg Lorazepam (Ativan) 0.5 mg PO TID PRN; Protocol PRN Reason: Agitation Last Admin: 10/27/16 16:18 Dose: 0.5 mg Lorazepam (Ativan) 0.5 mg PO 1600 [facility] PRN Reason: Protocol Last Admin: 10/29/16 16:35 Dose: 0.5 mg Magnesium Hydroxide (Milk Of Magnesia) 30 ml PO DAILY PRN PRN Reason: Constipation Mirtazapine (Remeron) 15 mg PO HS [facility] Last Admin: 10/29/16 21:28 Dose: 15 mg Quetiapine Fumarate (Seroquel) 100 mg PO [facility] PRN Reason: Protocol Last Admin: 10/29/16 21:28 Dose: 100 mg Ziprasidone (Geodon Inj) 20 mg IM Q6H PRN; Protocol PRN Reason: severe agitation Ziprasidone (Geodon Cap) 20 mg PO Q6H PRN; Protocol PRN Reason: agitation/psychosis Last Admin: 10/29/16 21:28 Dose: 20 mg - Respiratory Exam Respiratory Exam: Clear to Ausculation Bilateral, NORMAL BREATHING PATTERN - Cardiovascular Exam Cardiovascular Exam: REGULAR RHYTHM - GI/Abdominal Exam GI & Abdominal Exam: Soft, Normal Bowel Sounds - Extremities Exam Extremities Exam: Normal Inspection - Neurological Exam Neurological Exam: Alert, Awake - Skin Skin Exam: Dry, Warm Assessment and Plan (1) Headache Status: Resolved (2) Schizoaffective disorder Status: Acute - Assessment and Plan (Free Text) Plan: no c/o headache, medically stable
[2016-10-30] MEDS: Alum-Mag Hydrox-Simethicone Susp (30 mL) PO PRN (19:23)
--- NOTE | 2016-10-31 00:11 | CP.PCM.PN ---
Subjective - Date & Time of Evaluation Date of Evaluation: 10/31/16 Time of Evaluation: 00:01 - Subjective Subjective: S:Requested a sleeping pill. Medical record was reviewed. O: Last Vital Signs 3 Temp 98.3 F 10/30/16 07:00 Pulse 107 H 10/30/16 16:00 Resp 16 10/30/16 07:00 BP 120/75 10/30/16 16:00 Pulse Ox 100 10/27/16 10:13 Alert , awake, not in distress. Ambulating, saw her in nursing station. LUNGS:Normal breathing pattern. A:adjustment insomnia. P:Benadryl 50 mg PO x 1. Objective - Vital Signs/Intake and Output Vital Signs (last 24 hours): Temp Pulse Resp BP Pulse Ox 98.3 F 107 H 16 120/75 100 10/30/16 07:00 10/30/16 16:00 10/30/16 07:00 10/30/16 16:00 10/27/16 10:13 - Medications Medications: Current Medications Acetaminophen (Tylenol 325mg Tab) 650 mg PO Q4 PRN PRN Reason: Pain, Mild (1-3) Al Hydrox/Mg Hydrox/Simethicone (Maalox Plus 30 Ml) 30 ml PO DAILY PRN PRN Reason: Upset Stomach Last Admin: 10/30/16 19:23 Dose: 30 ml Lorazepam (Ativan) 2 mg IM Q6H PRN; Protocol PRN Reason: agitation/catatonia/aggression Lorazepam (Ativan) 0.5 mg PO [facility] PRN Reason: Protocol Last Admin: 10/30/16 21:48 Dose: 0.5 mg Lorazepam (Ativan) 0.5 mg PO TID PRN; Protocol PRN Reason: Agitation Last Admin: 10/27/16 16:18 Dose: 0.5 mg Lorazepam (Ativan) 0.5 mg PO 1600 [facility] PRN Reason: Protocol Last Admin: 10/30/16 18:02 Dose: 0.5 mg Magnesium Hydroxide (Milk Of Magnesia) 30 ml PO DAILY PRN PRN Reason: Constipation Mirtazapine (Remeron) 15 mg PO HS [facility] Last Admin: 10/30/16 21:48 Dose: 15 mg Quetiapine Fumarate (Seroquel) 100 mg PO [facility] PRN Reason: Protocol Last Admin: 10/30/16 21:48 Dose: 100 mg Ziprasidone (Geodon Inj) 20 mg IM Q6H PRN; Protocol PRN Reason: severe agitation Ziprasidone (Geodon Cap) 20 mg PO Q6H PRN; Protocol PRN Reason: agitation/psychosis Last Admin: 10/30/16 21:49 Dose: 20 mg
--- NOTE | 2016-10-31 08:47 | PCM.PYCHPN ---
Psychiatric Progress Note - Psychiatric Progress Note Patient seen today, length of contact: 25min Patient Chief Complaint: "depressed" Problems Identified/Issues Discussed: I reviewed recent notes and met with patient at bedside. Patient continues to be labile but behavior is in better control on the unit. . I met with patient at bedside. Her grooming appears adequate. Again, patient is minimally cooperative and she responds to my questioning with very brief affirmations or denials. She is still depressed and suicidal thoughts. She also denies hallucinations. Patient appears michel and depressed. Indicates her sleep was "so-so". Received a Benadryl 50 mg x one dose with good effect. Responses are relevant to questioning (though brief) and consistent with repeat questioning. Patient has been taking her medications and denies any side effects. Nursing indicates that patient has been more visible and verbal. Still requires redirection. Attending groups. There were no behavioral issues overnight. Impulse control is tenuous and behavior is becoming a little more predictable Diagnostic Results: Schizoaffective disorder with catatonia Medication Change: Yes (Benadryl 50 mg po hs prn started 10/31/16) Medical Record Reviewed: Yes Mental Status Examination - Cognitive Function Orientation: Person Attention: Poor Concentration: Poor Association: Loose Fund of Knowledge: WNL - Mood Mood: Depressed, Anxious - Affect Affect: Flat - Formal Thought Process Formal Thought Process: Hallucinations, Delusions, Paranoia, Loosening of associations - Suicidal Ideation Suicidal Ideation: No - Homicidal Ideation Homicidal Ideation: No Goal/Treatment Plan - Goal/Treatment Plan Need for Continued Stay: Remain at risks for inpatient hospitalization, Severe depression anxiety, Discharge may exacerbated symptoms, Severe functional impairment Progress Toward Problem(s) and Goals/Treatment Plan: * c/w current tx and plan * Appreciate f/u by Dr. Singh on 10/30/16 and f/u by Dr. Allison on 10/31/16 * Started benadryl 50 mg HS prn: insomnia on 10/31/16 * No new weekend labs * Vitals reviewed and noted below: Selected Entries 10/30/16 10/30/16 07:00 16:00 Temperature 98.3 F Pulse Rate 103 H 107 H Respiratory 16 Rate Blood Pressure 103/62 120/75 Estimated Date of D/C: 11/04/16 (we'll monitor closely)
--- NOTE | 2016-10-31 12:41 | CP.PCM.PN ---
Subjective - Date & Time of Evaluation Date of Evaluation: 10/31/16 Time of Evaluation: 12:15 - Subjective Subjective: c/o back pain, ambulating without difficulty, no hematuria Objective - Vital Signs/Intake and Output Vital Signs (last 24 hours): Temp Pulse Resp BP Pulse Ox 97.5 F L 91 H 16 111/64 100 10/31/16 07:00 10/31/16 07:00 10/31/16 07:00 10/31/16 07:00 10/27/16 10:13 - Medications Medications: Current Medications Acetaminophen (Tylenol 325mg Tab) 650 mg PO Q4 PRN PRN Reason: Pain, Mild (1-3) Al Hydrox/Mg Hydrox/Simethicone (Maalox Plus 30 Ml) 30 ml PO DAILY PRN PRN Reason: Upset Stomach Last Admin: 10/30/16 19:23 Dose: 30 ml Diphenhydramine HCl (Benadryl) 50 mg PO HS PRN PRN Reason: Insomnia Lorazepam (Ativan) 2 mg IM Q6H PRN; Protocol PRN Reason: agitation/catatonia/aggression Lorazepam (Ativan) 0.5 mg PO [facility] PRN Reason: Protocol Last Admin: 10/31/16 08:59 Dose: 0.5 mg Lorazepam (Ativan) 0.5 mg PO TID PRN; Protocol PRN Reason: Agitation Last Admin: 10/27/16 16:18 Dose: 0.5 mg Lorazepam (Ativan) 0.5 mg PO 1600 [facility] PRN Reason: Protocol Last Admin: 10/30/16 18:02 Dose: 0.5 mg Magnesium Hydroxide (Milk Of Magnesia) 30 ml PO DAILY PRN PRN Reason: Constipation Meloxicam (Mobic) 15 mg PO DAILY [facility] Mirtazapine (Remeron) 15 mg PO HS [facility] Last Admin: 10/30/16 21:48 Dose: 15 mg Quetiapine Fumarate (Seroquel) 100 mg PO [facility] PRN Reason: Protocol Last Admin: 10/31/16 08:59 Dose: 100 mg Ziprasidone (Geodon Inj) 20 mg IM Q6H PRN; Protocol PRN Reason: severe agitation Ziprasidone (Geodon Cap) 20 mg PO Q6H PRN; Protocol PRN Reason: agitation/psychosis Last Admin: 10/30/16 21:49 Dose: 20 mg - Respiratory Exam Respiratory Exam: Clear to Ausculation Bilateral, NORMAL BREATHING PATTERN - Cardiovascular Exam Cardiovascular Exam: REGULAR RHYTHM - GI/Abdominal Exam GI & Abdominal Exam: Soft, Normal Bowel Sounds - Extremities Exam Extremities Exam: Full ROM - Neurological Exam Neurological Exam: Alert, Awake - Skin Skin Exam: Dry, Warm Assessment and Plan (1) Headache Status: Resolved (2) Schizoaffective disorder Status: Acute (3) Back pain Status: Acute - Assessment and Plan (Free Text) Plan: add meloxicam 15mg qd
[2016-10-31] MEDS: Alum-Mag Hydrox-Simethicone Susp (30 mL) PO PRN (20:05)
--- NOTE | 2016-11-01 10:50 | PCM.PYCHPN ---
Psychiatric Progress Note - Psychiatric Progress Note Patient seen today, length of contact: 25min Patient Chief Complaint: "depressed" Problems Identified/Issues Discussed: I reviewed recent notes and met with patient at bedside. Patient continues to be labile and demanding though with a little improvement in control over the weekend. She still doesn't appear engaged with the treatment process. I met with patient at bedside. Her grooming appears adequate. Again, patient is minimally cooperative and she responds to my questioning with very brief affirmations or denials. She is still depressed and denies suicidal thoughts. She also denies hallucinations. Patient appears michel and depressed. Affirms that she slept poorly and would like to take ambien in lieu of Benadryl 50 mg HS. Responses are relevant to questioning (though brief) and consistent with repeat questioning. Patient has been taking her medications and denies any side effects. Nursing indicates that patient has been michel and irritable, at times verbally abusive. Still requires redirection. Attending some groups.There were no major behavioral issues overnight. Impulse control is tenuous and behavior is becoming only a little more predictable Diagnostic Results: Schizoaffective disorder with catatonia Medication Change: Yes (ambien started on 11/01/16) Medical Record Reviewed: Yes Mental Status Examination - Cognitive Function Orientation: Person Attention: Poor Concentration: Poor Association: Loose Fund of Knowledge: WNL - Mood Mood: Depressed, Anxious - Affect Affect: Flat, Other (irritable, labile) - Speech Speech: Soft - Formal Thought Process Formal Thought Process: Hallucinations (denies), Delusions, Paranoia (guarded), Loosening of associations - Suicidal Ideation Suicidal Ideation: No - Homicidal Ideation Homicidal Ideation: No Goal/Treatment Plan - Goal/Treatment Plan Need for Continued Stay: Remain at risks for inpatient hospitalization, Severe depression anxiety, Discharge may exacerbated symptoms, Severe functional impairment Progress Toward Problem(s) and Goals/Treatment Plan: * c/w current tx and plan * Appreciate f/u by Dr. Singh on 10/30/16 and 10/31/16~added meloxicam 15mg qd * Appreciate f/u by Dr. Allison on 10/31/16 * Started ambien 10 mg hs on 11/01/16 for insomnia * No new overnight labs * Vitals reviewed and noted below: Selected Entries 10/31/16 10/31/16 07:00 16:28 Temperature 97.5 F L Pulse Rate 91 H 105 H Respiratory 16 Rate Blood Pressure 111/64 124/76 Estimated Date of D/C: 11/04/16 (we'll monitor closely)
--- NOTE | 2016-11-01 14:09 | CP.PCM.PN ---
Subjective - Date & Time of Evaluation Date of Evaluation: 11/01/16 Time of Evaluation: 10:30 - Subjective Subjective: nad Objective - Vital Signs/Intake and Output Vital Signs (last 24 hours): Temp Pulse Resp BP Pulse Ox 97.5 F L 105 H 16 124/76 100 10/31/16 07:00 10/31/16 16:28 10/31/16 07:00 10/31/16 16:28 10/27/16 10:13 - Medications Medications: Current Medications Acetaminophen (Tylenol 325mg Tab) 650 mg PO Q4 PRN PRN Reason: Pain, Mild (1-3) Al Hydrox/Mg Hydrox/Simethicone (Maalox Plus 30 Ml) 30 ml PO DAILY PRN PRN Reason: Upset Stomach Last Admin: 10/31/16 20:05 Dose: 30 ml Lorazepam (Ativan) 2 mg IM Q6H PRN; Protocol PRN Reason: agitation/catatonia/aggression Lorazepam (Ativan) 0.5 mg PO [facility] PRN Reason: Protocol Last Admin: 11/01/16 10:09 Dose: 0.5 mg Lorazepam (Ativan) 0.5 mg PO TID PRN; Protocol PRN Reason: Agitation Last Admin: 10/31/16 23:16 Dose: 0.5 mg Lorazepam (Ativan) 0.5 mg PO 1600 [facility] PRN Reason: Protocol Last Admin: 10/31/16 17:39 Dose: 0.5 mg Magnesium Hydroxide (Milk Of Magnesia) 30 ml PO DAILY PRN PRN Reason: Constipation Meloxicam (Mobic) 15 mg PO DAILY [facility] Last Admin: 11/01/16 10:12 Dose: 15 mg Mirtazapine (Remeron) 15 mg PO HS [facility] Last Admin: 10/31/16 21:23 Dose: 15 mg Quetiapine Fumarate (Seroquel) 100 mg PO [facility] PRN Reason: Protocol Last Admin: 11/01/16 10:10 Dose: 100 mg Ziprasidone (Geodon Inj) 20 mg IM Q6H PRN; Protocol PRN Reason: severe agitation Ziprasidone (Geodon Cap) 20 mg PO Q6H PRN; Protocol PRN Reason: agitation/psychosis Last Admin: 10/31/16 21:22 Dose: 20 mg Zolpidem Tartrate (Ambien) 10 mg PO HS PRN; Protocol PRN Reason: Insomnia Assessment and Plan (1) Headache Status: Resolved (2) Schizoaffective disorder Status: Acute (3) Back pain Status: Acute - Assessment and Plan (Free Text) Plan: medically stable
[2016-11-01] MEDS ORDERED: Home Med 1 UNIT TOP SCH ×2 (22:00→22:30)
[2016-11-01] MEDS: TRETINOIN 0.025% TOP SCH (22:10)
[2016-11-01] MEDS: ELIDEL 1% TOP SCH (22:10)
[2016-11-01] MEDS: CICLOPIROX 0.77% TOP SCH (22:11)
[2016-11-02] MEDS ORDERED: BENZOYL PEROXIDE 5% TOP SCH (08:00)
[2016-11-02] MEDS: [UNRECOGNIZED DRUG - OTHER] TOP SCH ×2 (10:15→20:38)
[2016-11-02] MEDS: CICLOPIROX 0.77% TOP SCH ×2 (10:15→20:38)
[2016-11-02] MEDS: ELIDEL 1% TOP SCH ×2 (10:16→20:39)
--- NOTE | 2016-11-02 14:04 | CP.PCM.PN ---
Subjective - Date & Time of Evaluation Date of Evaluation: 11/02/16 Time of Evaluation: 12:40 - Subjective Subjective: c/o some abd bloating, no n/v, otherwise nad Objective - Vital Signs/Intake and Output Vital Signs (last 24 hours): Temp Pulse Resp BP Pulse Ox 97.9 F 97 H 20 99/60 L 100 11/02/16 07:43 11/02/16 07:43 11/02/16 07:43 11/02/16 07:43 10/27/16 10:13 - Medications Medications: Current Medications Acetaminophen (Tylenol 325mg Tab) 650 mg PO Q4 PRN PRN Reason: Pain, Mild (1-3) Al Hydrox/Mg Hydrox/Simethicone (Maalox Plus 30 Ml) 30 ml PO DAILY PRN PRN Reason: Upset Stomach Last Admin: 10/31/16 20:05 Dose: 30 ml Haloperidol (Haldol) 5 mg PO [facility] PRN Reason: Protocol Haloperidol (Haldol) 5 mg PO 1600 [facility] PRN Reason: Protocol Home Med (Home Med) 1 unit TOP BID [facility] Last Admin: 11/02/16 10:15 Dose: 1 unit Home Med (Home Med) 1 unit TOP HS [facility] Last Admin: 11/01/16 22:10 Dose: 1 unit Home Med (Home Med) 1 unit TOP BID [facility] Last Admin: 11/02/16 10:16 Dose: 1 unit Home Med (Home Med) 1 unit TOP BID [facility] Last Admin: 11/02/16 10:15 Dose: 1 unit Lorazepam (Ativan) 2 mg IM Q6H PRN; Protocol PRN Reason: agitation/catatonia/aggression Lorazepam (Ativan) 0.5 mg PO [facility] PRN Reason: Protocol Last Admin: 11/02/16 09:16 Dose: 0.5 mg Lorazepam (Ativan) 0.5 mg PO TID PRN; Protocol PRN Reason: Agitation Last Admin: 10/31/16 23:16 Dose: 0.5 mg Lorazepam (Ativan) 0.5 mg PO 1600 [facility] PRN Reason: Protocol Last Admin: 11/01/16 18:48 Dose: Not Given Magnesium Hydroxide (Milk Of Magnesia) 30 ml PO DAILY PRN PRN Reason: Constipation Meloxicam (Mobic) 15 mg PO DAILY [facility] Last Admin: 11/02/16 09:18 Dose: 15 mg Mirtazapine (Remeron) 15 mg PO HS [facility] Last Admin: 11/01/16 22:09 Dose: 15 mg Ziprasidone (Geodon Inj) 20 mg IM Q6H PRN; Protocol PRN Reason: severe agitation Last Admin: 11/02/16 11:39 Dose: 20 mg Ziprasidone (Geodon Cap) 20 mg PO Q6H PRN; Protocol PRN Reason: agitation/psychosis Last Admin: 11/01/16 23:57 Dose: 20 mg Zolpidem Tartrate (Ambien) 10 mg PO HS PRN; Protocol PRN Reason: Insomnia - Respiratory Exam Respiratory Exam: Clear to Ausculation Bilateral, NORMAL BREATHING PATTERN - Cardiovascular Exam Cardiovascular Exam: REGULAR RHYTHM - GI/Abdominal Exam GI & Abdominal Exam: Soft, Normal Bowel Sounds - Extremities Exam Extremities Exam: Normal Inspection - Neurological Exam Neurological Exam: Alert, Awake - Psychiatric Exam Psychiatric exam: Flat Affect Assessment and Plan (1) Headache Status: Resolved (2) Schizoaffective disorder Status: Acute (3) Back pain Status: Acute - Assessment and Plan (Free Text) Plan: check labs in am, continue psych f/u
--- NOTE | 2016-11-02 15:58 | PCM.PYCHPN ---
Psychiatric Progress Note - Psychiatric Progress Note Patient seen today, length of contact: 30min Patient Chief Complaint: "I was hearing voices he, he, he, I was not able to talk, I was in other world..." Problems Identified/Issues Discussed: Suicide/ homicide prevention, past psychiatric h/o, current psychiatric symptoms , medical problems, risk/benefits and alternatives of medications, medications compliance, coping strategies, substance abuse h/o, relapse prevention, importance of follow up with psychiatrist and therapist, discharge plan. Medical Problems: see medical notes Diagnostic Results: 10/26/16 09:30 10/26/16 09:30 Lab Results 10/26/16 13:20: Urine Opiates Screen Negative, Urine Methadone Screen Negative, Ur Barbiturates Screen Negative, Ur Phencyclidine Scrn Negative, Ur Amphetamines Screen Negative, U Benzodiazepines Scrn Negative, U Oth Cocaine Metabols Negative, U Cannabinoids Screen Negative 10/26/16 10:34: Urine Color Yellow, Urine Appearance Sl cloudy, Urine pH 6.0, Ur Specific [place] 1.025, Urine Protein 30 H, Urine Glucose (UA) Negative, Urine Ketones 15 H, Urine Blood Negative, Urine Nitrate Negative, Urine Bilirubin Small H, Urine Urobilinogen 0.2, Ur Leukocyte Esterase Negative, Urine RBC 0 - 2, Urine WBC 0 - 2, Ur Epithelial Cells 0 - 2, Calcium Oxalate Crystal Few, Urine Bacteria Few, Urine HCG, Qual Negative 10/26/16 09:30: Alcohol, Quantitative < 10 10/26/16 09:30: Salicylates < 1 L, Acetaminophen < 10.0 L 10/26/16 09:30: Sodium 143, Potassium 4.0, Chloride 108 H, Carbon Dioxide 25, Anion Gap 14, BUN 8, Creatinine 0.8, Est GFR ( Amer) > 60, Est GFR (Non- Af Amer) > 60, Random Glucose 88, Calcium 9.6, Total Bilirubin 1.1, AST 20, ALT 22, Alkaline Phosphatase 95, Total Creatine Kinase 35, Total Protein 7.7, Albumin 4.3, Globulin 3.3, Albumin/Globulin Ratio 1.3 10/26/16 09:30: WBC 5.4, RBC 4.73, Hgb 13.9, Hct 40.7, MCV 86.0, MCH 29.4, MCHC 34.2, RDW 12.9, Plt Count 278, MPV 9.8, Gran % 58.5, Lymph % (Auto) 29.3, [place] % (Auto) 10.3 H, Eos % (Auto) 1.5, Baso % (Auto) 0.4, Gran # 3.14, Lymph # 1.6, [place] # 0.6, Eos # 0.1, Baso # 0.02 Vital Signs Temp Pulse Resp BP Pulse Ox 10/28/16 07:18 97.9 F 80 20 95/54 L 10/27/16 16:00 76 102/68 10/27/16 10:13 97.9 F 72 18 112/55 L 100 10/27/16 00:42 97.8 F 70 16 92/58 L 99 10/26/16 16:55 70 18 107/73 100 10/26/16 13:20 80 18 119/80 99 10/26/16 11:00 72 16 122/77 99 10/26/16 08:35 98.2 F 72 18 122/84 97 Temp Pulse Resp BP Pulse Ox 97.9 F 97 H 20 99/60 L 100 11/02/16 07:43 11/02/16 07:43 11/02/16 07:43 11/02/16 07:43 10/27/16 10:13 DSM 5 Symptoms Update: Shortly pt is 26yo female with long h/o schizoaffective disorder, h/o inpatient hospitalizations, most recent was [facility] (about a year ago in August 2015), came to the ED c/o headache and chest pain, pt was found to be catatonic, was not talking, was refusing to give UA, annmarie Chen was called, for catatonia this internal communications writer recommended to give Ativan 2mg+irsperdal liquid PO, pt was compliant, this internal communications writer recommended screening [place] [facility] for [place], but during the interview by the screener over night, pt was in agreement for admission under voluntary status. who was service promoter salesperson last night recommended [facility] screening again, but pt was in agreement for voluntary admission. Pt initially was seen at ED, was not talking, was communicating with this internal communications writer by nodding her head. pt obviously needs further evaluation and stabilization, meds initiation and titration. pt was seen at the tx team meeting, seems to be less angry, more talkative, pt was able to talk full sentences, pt said that she was having "some blockage, I was in other world, I was able to hear you but something was blocking me from talking back...". pt reported no hallucinations today, but prior to come to the hospital "I was hearing he, he, he, I don't know what does it mean". pt reported to feel angry about other pt J,A, "she is constantly asking for food , I don't want to hurt her, but she is annoying". staff was asked to observe both pt closely. pt asked to d/c seroquel and start haldol. pt was educated about both meds, pt asked Haldol to be initiated. later on pt was agitated, was cursing people, needed to stay in quiet room. Patient tolerates medications well, no side effects observed or reported, aims 0 , no EPS. Impression: Schizoaffective disorder with catatonia Medication Change: Yes (haldol started, seroquel d/c) Medical Record Reviewed: Yes Consults ordered or reviewed: edical consult appreciated Mental Status Examination - Cognitive Function Orientation: Person Attention: Poor Concentration: Poor Association: Loose Fund of Knowledge: WNL - Mood Mood: Depressed, Anxious - Affect Affect: Flat, Other (irritable, labile) - Speech Speech: Soft - Formal Thought Process Formal Thought Process: Hallucinations (denies), Delusions, Paranoia (guarded), Loosening of associations - Suicidal Ideation Suicidal Ideation: No - Homicidal Ideation Homicidal Ideation: No Goal/Treatment Plan - Goal/Treatment Plan Need for Continued Stay: Remain at risks for inpatient hospitalization, Severe depression anxiety, Discharge may exacerbated symptoms, Severe functional impairment Progress Toward Problem(s) and Goals/Treatment Plan: milieu/structure/supportive therapy will resume meds for the medical issues: Atorvastatin [Lipitor] 10 mg PO DAILY Ibuprofen [Motrin Tab] 600 mg PO Q6 Spironolactone [Aldactone] 25 mg PO DAILY as per Spironolactone [Aldactone] 50 mg PO HS as per seroquel will be d/c haldol 5mg tid for psychosis will give remeron 15mg po hs for depression/insomnia ativan 0.5mg po 3 times a day for catatonia medical consult appreciated will give PRN meds will monitor closely pharmacy was called, pt was noncompliant with psychotiropic meds for the past year. Estimated Date of D/C: 11/04/16 (we'll monitor closely)
[2016-11-02] MEDS: TRETINOIN 0.025% TOP SCH (21:32)
[2016-11-03] MEDS: Alum-Mag Hydrox-Simethicone Susp (30 mL) PO PRN ×2 (04:45→22:07)
[2016-11-03 08:19] LABS: BASO # 0.01 K/mm3 (0.0-2.0); BASO % 0.2 % (0.0-3.0); EOS # 0.2 (0.0-0.7); EOS % 3.1 % (1.5-5.0); GRAN # 2.71 (1.4-6.5); GRAN % 55.9 % (50.0-68.0); HEMOGLOBIN 11.9 gm/dL (12.0-16.0); LYMPH # 1.5 (1.2-3.4); LYMPH % 31.5 % (22.0-35.0); MEAN CORPUSCULAR HEMOGLOBIN 28.8 pg (25.0-35.0); MEAN CORPUSCULAR HGB CONC 33.5 g/dl (31.0-37.0); MEAN PLATELET VOLUME 9.7 fl (7.0-11.0); MONO # 0.5 (0.1-0.6); MONO % 9.3 % (1.0-6.0); PLATELET COUNT 247 10^3/uL (120.0-450.0); RBC 4.13 10^6/uL (3.5-6.1); RED CELL DISTRIBUTION WIDTH 12.8 % (11.5-14.5); WHITE BLOOD COUNT 4.9 10^3/ul (4.5-11.0)
[2016-11-03 08:28] LABS: ALB/GLOB RATIO 1.2 (1.1-1.8); ALBUMIN 3.4 g/dL (3.0-4.8); ALT/SGPT 276 U/L (7-56); AST/SGOT 274 U/L (15-39); BLOOD UREA NITROGEN 10 mg/dL (7-21); CALCIUM 8.6 mg/dL (8.4-10.5); GFR AFRICAN-AMERICAN > 60; GFR NON-AFRICAN AMERICAN > 60
[2016-11-03] MEDS: CICLOPIROX 0.77% TOP SCH ×2 (09:37→20:37)
[2016-11-03] MEDS: ELIDEL 1% TOP SCH ×2 (09:37→20:37)
[2016-11-03] MEDS: [UNRECOGNIZED DRUG - OTHER] TOP SCH ×2 (09:38→20:36)
--- NOTE | 2016-11-03 10:37 | CP.PCM.PN ---
Subjective - Date & Time of Evaluation Date of Evaluation: 11/03/16 Time of Evaluation: 09:30 - Subjective Subjective: nad Objective - Vital Signs/Intake and Output Vital Signs (last 24 hours): Temp Pulse Resp BP Pulse Ox 98.4 F 100 H 20 108/73 100 11/03/16 07:21 11/03/16 07:21 11/03/16 07:21 11/03/16 07:21 10/27/16 10:13 - Medications Medications: Current Medications Al Hydrox/Mg Hydrox/Simethicone (Maalox Plus 30 Ml) 30 ml PO DAILY PRN PRN Reason: Upset Stomach Last Admin: 11/03/16 04:45 Dose: 30 ml Haloperidol (Haldol) 5 mg PO AMHS [facility] PRN Reason: Protocol Last Admin: 11/03/16 09:17 Dose: 5 mg Haloperidol (Haldol) 5 mg PO 1600 [facility] PRN Reason: Protocol Last Admin: 11/02/16 17:38 Dose: 5 mg Home Med (Home Med) 1 unit TOP BID [facility] Last Admin: 11/03/16 09:37 Dose: 1 unit Home Med (Home Med) 1 unit TOP HS [facility] Last Admin: 11/02/16 21:32 Dose: 1 unit Home Med (Home Med) 1 unit TOP BID [facility] Last Admin: 11/03/16 09:37 Dose: 1 unit Home Med (Home Med) 1 unit TOP BID [facility] Last Admin: 11/03/16 09:38 Dose: 1 unit Lorazepam (Ativan) 2 mg IM Q6H PRN; Protocol PRN Reason: agitation/catatonia/aggression Lorazepam (Ativan) 0.5 mg PO AMHS [facility] PRN Reason: Protocol Last Admin: 11/03/16 09:17 Dose: 0.5 mg Lorazepam (Ativan) 0.5 mg PO TID PRN; Protocol PRN Reason: Agitation Last Admin: 10/31/16 23:16 Dose: 0.5 mg Lorazepam (Ativan) 0.5 mg PO 1600 [facility] PRN Reason: Protocol Last Admin: 11/02/16 17:38 Dose: 0.5 mg Magnesium Hydroxide (Milk Of Magnesia) 30 ml PO DAILY PRN PRN Reason: Constipation Meloxicam (Mobic) 15 mg PO DAILY [facility] Last Admin: 11/03/16 09:18 Dose: 15 mg Mirtazapine (Remeron) 15 mg PO HS [facility] Last Admin: 11/02/16 21:41 Dose: 15 mg Ziprasidone (Geodon Inj) 20 mg IM Q6H PRN; Protocol PRN Reason: severe agitation Last Admin: 11/02/16 11:39 Dose: 20 mg Ziprasidone (Geodon Cap) 20 mg PO Q6H PRN; Protocol PRN Reason: agitation/psychosis Last Admin: 11/02/16 23:09 Dose: 20 mg Zolpidem Tartrate (Ambien) 10 mg PO HS PRN; Protocol PRN Reason: Insomnia Last Admin: 11/02/16 21:40 Dose: 10 mg - Labs Labs: 11/03/16 07:50 11/03/16 07:50 - Respiratory Exam Respiratory Exam: Clear to Ausculation Bilateral, NORMAL BREATHING PATTERN - Cardiovascular Exam Cardiovascular Exam: REGULAR RHYTHM - GI/Abdominal Exam GI & Abdominal Exam: Soft, Normal Bowel Sounds - Neurological Exam Neurological Exam: Awake, Oriented x3 - Psychiatric Exam Psychiatric exam: Flat Affect Assessment and Plan (1) Headache Status: Resolved (2) Schizoaffective disorder Status: Acute (3) Back pain Status: Acute (4) Elevated transaminase level Status: Acute - Assessment and Plan (Free Text) Plan: dc apap, consider dc Geodon for elevated LFT's
--- NOTE | 2016-11-03 14:57 | PCM.PYCHPN ---
Psychiatric Progress Note - Psychiatric Progress Note Patient seen today, length of contact: 30min Patient Chief Complaint: "I am sorry for cursing at nurse" Problems Identified/Issues Discussed: Suicide/ homicide prevention, past psychiatric h/o, current psychiatric symptoms , medical problems, risk/benefits and alternatives of medications, medications compliance, coping strategies, substance abuse h/o, relapse prevention, importance of follow up with psychiatrist and therapist, discharge plan. Medical Problems: see medical notes Diagnostic Results: 10/26/16 09:30 10/26/16 09:30 Lab Results 10/26/16 13:20: Urine Opiates Screen Negative, Urine Methadone Screen Negative, Ur Barbiturates Screen Negative, Ur Phencyclidine Scrn Negative, Ur Amphetamines Screen Negative, U Benzodiazepines Scrn Negative, U Oth Cocaine Metabols Negative, U Cannabinoids Screen Negative 10/26/16 10:34: Urine Color Yellow, Urine Appearance Sl cloudy, Urine pH 6.0, Ur Specific [place] 1.025, Urine Protein 30 H, Urine Glucose (UA) Negative, Urine Ketones 15 H, Urine Blood Negative, Urine Nitrate Negative, Urine Bilirubin Small H, Urine Urobilinogen 0.2, Ur Leukocyte Esterase Negative, Urine RBC 0 - 2, Urine WBC 0 - 2, Ur Epithelial Cells 0 - 2, Calcium Oxalate Crystal Few, Urine Bacteria Few, Urine HCG, Qual Negative 10/26/16 09:30: Alcohol, Quantitative < 10 10/26/16 09:30: Salicylates < 1 L, Acetaminophen < 10.0 L 10/26/16 09:30: Sodium 143, Potassium 4.0, Chloride 108 H, Carbon Dioxide 25, Anion Gap 14, BUN 8, Creatinine 0.8, Est GFR ( Amer) > 60, Est GFR (Non- Af Amer) > 60, Random Glucose 88, Calcium 9.6, Total Bilirubin 1.1, AST 20, ALT 22, Alkaline Phosphatase 95, Total Creatine Kinase 35, Total Protein 7.7, Albumin 4.3, Globulin 3.3, Albumin/Globulin Ratio 1.3 10/26/16 09:30: WBC 5.4, RBC 4.73, Hgb 13.9, Hct 40.7, MCV 86.0, MCH 29.4, MCHC 34.2, RDW 12.9, Plt Count 278, MPV 9.8, Gran % 58.5, Lymph % (Auto) 29.3, [place] % (Auto) 10.3 H, Eos % (Auto) 1.5, Baso % (Auto) 0.4, Gran # 3.14, Lymph # 1.6, [place] # 0.6, Eos # 0.1, Baso # 0.02 Vital Signs Temp Pulse Resp BP Pulse Ox 10/28/16 07:18 97.9 F 80 20 95/54 L 10/27/16 16:00 76 102/68 10/27/16 10:13 97.9 F 72 18 112/55 L 100 10/27/16 00:42 97.8 F 70 16 92/58 L 99 10/26/16 16:55 70 18 107/73 100 10/26/16 13:20 80 18 119/80 99 10/26/16 11:00 72 16 122/77 99 10/26/16 08:35 98.2 F 72 18 122/84 97 Temp Pulse Resp BP Pulse Ox 97.9 F 97 H 20 99/60 L 100 11/02/16 07:43 11/02/16 07:43 11/02/16 07:43 11/02/16 07:43 10/27/16 10:13 DSM 5 Symptoms Update: Shortly pt is 26yo female with long h/o schizoaffective disorder, h/o inpatient hospitalizations, most recent was [facility] [place] (about a year ago in August 2015), came to the ED c/o headache and chest pain, pt was found to be catatonic, was not talking, was refusing to give UA, annmarie Chen was called, for catatonia this field underwriter recommended to give Ativan 2mg+irsperdal liquid PO, pt was compliant, this field underwriter recommended screening by [facility] for involuntary commitment, but during the interview by the screener over night, pt was in agreement for admission under voluntary status. who was mason apprentice last night recommended [facility] screening again, but pt was in agreement for voluntary admission. Pt initially was seen at ED, was not talking, was communicating with this field underwriter by nodding her head. pt obviously needs further evaluation and stabilization, meds initiation and titration. pt was seen at the tx team meeting room, seems to be less angry, more talkative , pt was remorseful for her disrespectful behavior yesterday (pt was agitated, was cursing at the nurse, needed to be in quiet room, medicated IM), pt was apologetic, more rationale. pt said that hs tolerates haldol better, no side effects. pt still irritable, but more redirectable. pt reported no hallucinations today, but prior to come to the hospital "I was hearing he, he, he, I don't know what does it mean". Patient tolerates medications well, no side effects observed or reported, aims 0 , no EPS. Impression: Schizoaffective disorder with catatonia Medication Change: Yes (haldol increased) Medical Record Reviewed: Yes Consults ordered or reviewed: edical consult appreciated Mental Status Examination - Cognitive Function Orientation: Person Attention: Poor (some improvement) Concentration: Poor (some improvement) Association: Loose Fund of Knowledge: WNL - Mood Mood: Depressed, Anxious - Affect Affect: Flat, Other (irritable, labile) - Speech Speech: Soft - Formal Thought Process Formal Thought Process: Hallucinations (denies), Delusions, Paranoia (guarded), Loosening of associations - Suicidal Ideation Suicidal Ideation: No - Homicidal Ideation Homicidal Ideation: No Goal/Treatment Plan - Goal/Treatment Plan Need for Continued Stay: Remain at risks for inpatient hospitalization, Severe depression anxiety, Discharge may exacerbated symptoms, Severe functional impairment Progress Toward Problem(s) and Goals/Treatment Plan: milieu/structure/supportive therapy will resume meds for the medical issues: Atorvastatin [Lipitor] 10 mg PO DAILY Ibuprofen [Motrin Tab] 600 mg PO Q6 Spironolactone [Aldactone] 25 mg PO DAILY as per Spironolactone [Aldactone] 50 mg PO HS as per seroquel will be d/c haldol 10mg amhs for psychosis will give remeron 15mg po hs for depression/insomnia ativan 0.5mg po 3 times a day for catatonia medical consult appreciated will give PRN meds will monitor closely pharmacy was called, pt was noncompliant with psychotiropic meds for the past year. Estimated Date of D/C: 11/08/16 (we'll monitor closely)
[2016-11-03] MEDS: TRETINOIN 0.025% TOP SCH (21:30)
[2016-11-04] MEDS: ELIDEL 1% TOP SCH ×2 (12:55→21:05)
[2016-11-04] MEDS: [UNRECOGNIZED DRUG - OTHER] TOP SCH ×2 (12:55→21:06)
[2016-11-04] MEDS: CICLOPIROX 0.77% TOP SCH ×2 (12:55→21:04)
--- NOTE | 2016-11-04 14:48 | PCM.PYCHPN ---
Psychiatric Progress Note - Psychiatric Progress Note Patient seen today, length of contact: 30min Patient Chief Complaint: "I am fine" Problems Identified/Issues Discussed: Suicide/ homicide prevention, past psychiatric h/o, current psychiatric symptoms , medical problems, risk/benefits and alternatives of medications, medications compliance, coping strategies, substance abuse h/o, relapse prevention, importance of follow up with psychiatrist and therapist, discharge plan. Medical Problems: see medical notes Diagnostic Results: 10/26/16 09:30 10/26/16 09:30 Lab Results 10/26/16 13:20: Urine Opiates Screen Negative, Urine Methadone Screen Negative, Ur Barbiturates Screen Negative, Ur Phencyclidine Scrn Negative, Ur Amphetamines Screen Negative, U Benzodiazepines Scrn Negative, U Oth Cocaine Metabols Negative, U Cannabinoids Screen Negative 10/26/16 10:34: Urine Color Yellow, Urine Appearance Sl cloudy, Urine pH 6.0, Ur Specific [place] 1.025, Urine Protein 30 H, Urine Glucose (UA) Negative, Urine Ketones 15 H, Urine Blood Negative, Urine Nitrate Negative, Urine Bilirubin Small H, Urine Urobilinogen 0.2, Ur Leukocyte Esterase Negative, Urine RBC 0 - 2, Urine WBC 0 - 2, Ur Epithelial Cells 0 - 2, Calcium Oxalate Crystal Few, Urine Bacteria Few, Urine HCG, Qual Negative 10/26/16 09:30: Alcohol, Quantitative < 10 10/26/16 09:30: Salicylates < 1 L, Acetaminophen < 10.0 L 10/26/16 09:30: Sodium 143, Potassium 4.0, Chloride 108 H, Carbon Dioxide 25, Anion Gap 14, BUN 8, Creatinine 0.8, Est GFR ( Amer) > 60, Est GFR (Non- Af Amer) > 60, Random Glucose 88, Calcium 9.6, Total Bilirubin 1.1, AST 20, ALT 22, Alkaline Phosphatase 95, Total Creatine Kinase 35, Total Protein 7.7, Albumin 4.3, Globulin 3.3, Albumin/Globulin Ratio 1.3 10/26/16 09:30: WBC 5.4, RBC 4.73, Hgb 13.9, Hct 40.7, MCV 86.0, MCH 29.4, MCHC 34.2, RDW 12.9, Plt Count 278, MPV 9.8, Gran % 58.5, Lymph % (Auto) 29.3, [place] % (Auto) 10.3 H, Eos % (Auto) 1.5, Baso % (Auto) 0.4, Gran # 3.14, Lymph # 1.6, [place] # 0.6, Eos # 0.1, Baso # 0.02 Vital Signs Temp Pulse Resp BP Pulse Ox 10/28/16 07:18 97.9 F 80 20 95/54 L 10/27/16 16:00 76 102/68 10/27/16 10:13 97.9 F 72 18 112/55 L 100 10/27/16 00:42 97.8 F 70 16 92/58 L 99 10/26/16 16:55 70 18 107/73 100 10/26/16 13:20 80 18 119/80 99 10/26/16 11:00 72 16 122/77 99 10/26/16 08:35 98.2 F 72 18 122/84 97 Temp Pulse Resp BP Pulse Ox 97.9 F 97 H 20 99/60 L 100 11/02/16 07:43 11/02/16 07:43 11/02/16 07:43 11/02/16 07:43 10/27/16 10:13 Temp Pulse Resp BP Pulse Ox 98.6 F 106 H 20 95/60 L 100 11/04/16 07:20 11/04/16 07:20 11/04/16 07:20 11/04/16 07:20 10/27/16 10:13 DSM 5 Symptoms Update: Shortly pt is 26yo female with long h/o schizoaffective disorder, h/o inpatient hospitalizations, most recent was [facility] [place]about [place] ago in August 2015), came to the ED c/o headache and chest pain, pt was found to be catatonic, was not talking, was refusing to give UA, annmarie Chen was called, for catatonia this telegraphic typewriter mechanic recommended to give Ativan 2mg+irsperdal liquid PO, pt was compliant, this telegraphic typewriter mechanic recommended screening by [facility] [place], but during the interview by the screener over night, pt was in agreement for admission under voluntary status. who was recreation superintendent last night recommended [facility] [place] again, but pt was in agreement for voluntary admission. Pt initially was seen at ED, was not talking, was communicating with this telegraphic typewriter mechanic by nodding her head. pt obviously needs further evaluation and stabilization, meds initiation and titration. pt was seen in her room, pt is sleepy, said that she feels "better", as per report pt is self isolating, at times irritable. pt said that hs tolerates haldol better, no side effects. pt still irritable, but more redirectable. pt reported no hallucinations today, but prior to come to the hospital "I was hearing he, he, he, I don't know what does it mean". Patient tolerates medications well, no side effects observed or reported, aims 0 , no EPS. Impression: Schizoaffective disorder with catatonia Medication Change: No (haldol increased yesterday) Medical Record Reviewed: Yes Consults ordered or reviewed: edical consult appreciated Mental Status Examination - Cognitive Function Orientation: Person Attention: Poor (some improvement) Concentration: Poor (some improvement) Association: Loose Fund of Knowledge: WNL - Mood Mood: Depressed, Anxious - Affect Affect: Flat, Other (irritable, labile) - Speech Speech: Soft - Formal Thought Process Formal Thought Process: Hallucinations (denies), Delusions, Paranoia (guarded), Loosening of associations - Suicidal Ideation Suicidal Ideation: No - Homicidal Ideation Homicidal Ideation: No Goal/Treatment Plan - Goal/Treatment Plan Need for Continued Stay: Remain at risks for inpatient hospitalization, Severe depression anxiety, Discharge may exacerbated symptoms, Severe functional impairment Progress Toward Problem(s) and Goals/Treatment Plan: milieu/structure/supportive therapy will resume meds for the medical issues: Atorvastatin [Lipitor] 10 mg PO DAILY Ibuprofen [Motrin Tab] 600 mg PO Q6 Spironolactone [Aldactone] 25 mg PO DAILY as per Spironolactone [Aldactone] 50 mg PO HS as per seroquel will be d/c haldol 10mg amhs for psychosis will give remeron 15mg po hs for depression/insomnia ativan 0.5mg po 3 times a day for catatonia medical consult appreciated will give PRN meds will monitor closely pharmacy was called, pt was noncompliant with psychotiropic meds for the past year. Estimated Date of D/C: 11/08/16 (we'll monitor closely)
--- NOTE | 2016-11-04 16:42 | CP.PCM.PN ---
Subjective - Date & Time of Evaluation Date of Evaluation: 11/04/16 Time of Evaluation: 10:40 - Subjective Subjective: nad Objective - Vital Signs/Intake and Output Vital Signs (last 24 hours): Temp Pulse Resp BP Pulse Ox 98.6 F 111 H 20 87/45 L 100 11/04/16 07:20 11/04/16 16:00 11/04/16 07:20 11/04/16 16:00 10/27/16 10:13 - Medications Medications: Current Medications Al Hydrox/Mg Hydrox/Simethicone (Maalox Plus 30 Ml) 30 ml PO DAILY PRN PRN Reason: Upset Stomach Last Admin: 11/03/16 22:07 Dose: 30 ml Haloperidol (Haldol) 10 mg PO AMHS [facility] PRN Reason: Protocol Last Admin: 11/04/16 09:12 Dose: 10 mg Home Med (Home Med) 1 unit TOP BID [facility] Last Admin: 11/04/16 12:55 Dose: 1 unit Home Med (Home Med) 1 unit TOP HS [facility] Last Admin: 11/03/16 21:30 Dose: 1 unit Home Med (Home Med) 1 unit TOP BID [facility] Last Admin: 11/04/16 12:55 Dose: 1 unit Home Med (Home Med) 1 unit TOP BID [facility] Last Admin: 11/04/16 12:55 Dose: 1 unit Lorazepam (Ativan) 2 mg IM Q6H PRN; Protocol PRN Reason: agitation/catatonia/aggression Lorazepam (Ativan) 0.5 mg PO AMHS [facility] PRN Reason: Protocol Last Admin: 11/04/16 09:14 Dose: 0.5 mg Lorazepam (Ativan) 0.5 mg PO TID PRN; Protocol PRN Reason: Agitation Last Admin: 10/31/16 23:16 Dose: 0.5 mg Lorazepam (Ativan) 0.5 mg PO 1600 [facility] PRN Reason: Protocol Last Admin: 11/03/16 15:33 Dose: 0.5 mg Magnesium Hydroxide (Milk Of Magnesia) 30 ml PO DAILY PRN PRN Reason: Constipation Meloxicam (Mobic) 15 mg PO DAILY [facility] Last Admin: 11/04/16 09:12 Dose: 15 mg Mirtazapine (Remeron) 15 mg PO HS [facility] Last Admin: 11/03/16 21:30 Dose: 15 mg Ziprasidone (Geodon Inj) 20 mg IM Q6H PRN; Protocol PRN Reason: severe agitation Last Admin: 11/02/16 11:39 Dose: 20 mg Ziprasidone (Geodon Cap) 20 mg PO Q6H PRN; Protocol PRN Reason: agitation/psychosis Last Admin: 11/02/16 23:09 Dose: 20 mg Zolpidem Tartrate (Ambien) 10 mg PO HS PRN; Protocol PRN Reason: Insomnia Last Admin: 11/03/16 21:28 Dose: 10 mg - Labs Labs: 11/03/16 07:50 11/03/16 07:50 - Respiratory Exam Respiratory Exam: Clear to Ausculation Bilateral, NORMAL BREATHING PATTERN - Cardiovascular Exam Cardiovascular Exam: REGULAR RHYTHM - GI/Abdominal Exam GI & Abdominal Exam: Soft, Normal Bowel Sounds - Back Exam Back Exam: NORMAL INSPECTION - Neurological Exam Neurological Exam: Alert, Awake, Normal Gait - Skin Skin Exam: Dry, Warm Assessment and Plan (1) Headache Status: Resolved (2) Schizoaffective disorder Status: Chronic (3) Back pain Status: Resolved (4) Elevated transaminase level Status: Acute - Assessment and Plan (Free Text) Plan: repeat LFT's in am
[2016-11-04] MEDS: TRETINOIN 0.025% TOP SCH (21:03)
[2016-11-05] MEDS: Alum-Mag Hydrox-Simethicone Susp (30 mL) PO PRN (00:27)
--- NOTE | 2016-11-05 08:38 | PCM.PYCHPN ---
Psychiatric Progress Note - Psychiatric Progress Note Patient seen today, length of contact: 30min Patient Chief Complaint: "I am not feeling well" Problems Identified/Issues Discussed: Suicide/ homicide prevention, past psychiatric h/o, current psychiatric symptoms , medical problems, risk/benefits and alternatives of medications, medications compliance, coping strategies, substance abuse h/o, relapse prevention, importance of follow up with psychiatrist and therapist, discharge plan. Medical Problems: see medical notes Diagnostic Results: 10/26/16 09:30 10/26/16 09:30 Lab Results 10/26/16 13:20: Urine Opiates Screen Negative, Urine Methadone Screen Negative, Ur Barbiturates Screen Negative, Ur Phencyclidine Scrn Negative, Ur Amphetamines Screen Negative, U Benzodiazepines Scrn Negative, U Oth Cocaine Metabols Negative, U Cannabinoids Screen Negative 10/26/16 10:34: Urine Color Yellow, Urine Appearance Sl cloudy, Urine pH 6.0, Ur Specific [place] 1.025, Urine Protein 30 H, Urine Glucose (UA) Negative, Urine Ketones 15 H, Urine Blood Negative, Urine Nitrate Negative, Urine Bilirubin Small H, Urine Urobilinogen 0.2, Ur Leukocyte Esterase Negative, Urine RBC 0 - 2, Urine WBC 0 - 2, Ur Epithelial Cells 0 - 2, Calcium Oxalate Crystal Few, Urine Bacteria Few, Urine HCG, Qual Negative 10/26/16 09:30: Alcohol, Quantitative < 10 10/26/16 09:30: Salicylates < 1 L, Acetaminophen < 10.0 L 10/26/16 09:30: Sodium 143, Potassium 4.0, Chloride 108 H, Carbon Dioxide 25, Anion Gap 14, BUN 8, Creatinine 0.8, Est GFR ( Amer) > 60, Est GFR (Non- Af Amer) > 60, Random Glucose 88, Calcium 9.6, Total Bilirubin 1.1, AST 20, ALT 22, Alkaline Phosphatase 95, Total Creatine Kinase 35, Total Protein 7.7, Albumin 4.3, Globulin 3.3, Albumin/Globulin Ratio 1.3 10/26/16 09:30: WBC 5.4, RBC 4.73, Hgb 13.9, Hct 40.7, MCV 86.0, MCH 29.4, MCHC 34.2, RDW 12.9, Plt Count 278, MPV 9.8, Gran % 58.5, Lymph % (Auto) 29.3, [place] % (Auto) 10.3 H, Eos % (Auto) 1.5, Baso % (Auto) 0.4, Gran # 3.14, Lymph # 1.6, [place] # 0.6, Eos # 0.1, Baso # 0.02 Vital Signs Temp Pulse Resp BP Pulse Ox 10/28/16 07:18 97.9 F 80 20 95/54 L 10/27/16 16:00 76 102/68 10/27/16 10:13 97.9 F 72 18 112/55 L 100 10/27/16 00:42 97.8 F 70 16 92/58 L 99 10/26/16 16:55 70 18 107/73 100 10/26/16 13:20 80 18 119/80 99 10/26/16 11:00 72 16 122/77 99 10/26/16 08:35 98.2 F 72 18 122/84 97 Temp Pulse Resp BP Pulse Ox 97.9 F 97 H 20 99/60 L 100 11/02/16 07:43 11/02/16 07:43 11/02/16 07:43 11/02/16 07:43 10/27/16 10:13 Temp Pulse Resp BP Pulse Ox 98.6 F 106 H 20 95/60 L 100 11/04/16 07:20 11/04/16 07:20 11/04/16 07:20 11/04/16 07:20 10/27/16 10:13 Temp Pulse Resp BP Pulse Ox 98.6 F 111 H 20 87/45 L 100 11/04/16 07:20 11/04/16 16:00 11/04/16 07:20 11/04/16 16:00 10/27/16 10:13 DSM 5 Symptoms Update: Shortly pt is 26yo female with long h/o schizoaffective disorder, h/o inpatient hospitalizations, most recent was [facility] (about a year ago in August 2015), came to the ED c/o headache and chest pain, pt was found to be catatonic, was not talking, was refusing to give UA, annmarie Chen was called, for catatonia this mortgage or loan underwriter recommended to give Ativan 2mg+irsperdal liquid PO, pt was compliant, this mortgage or loan underwriter recommended screening by [facility] for involuntary commitment, but during the interview by the screener over night, pt was in agreement for admission under voluntary status. who was [employer] consultant last night recommended [facility] screening again, but pt was in agreement for voluntary admission. Pt initially was seen at ED, was not talking, was communicating with this mortgage or loan underwriter by nodding her head. pt obviously needs further evaluation and stabilization, meds initiation and titration. pt was seen in her room, pt is sleepy, said that she feels "not good today, jut leave me alone", as per report pt is self isolating, at times irritable, but no agitation no aggression. pt reported no hallucinations today, but prior to come to the hospital "I was hearing he, he, he, I don't know what does it mean". pt said that she tolerates haldol as well as other meds well, no side effects observed or reported, aims 0, no EPS. Impression: Schizoaffective disorder with catatonia Medication Change: Yes (ativan decreased) Medical Record Reviewed: Yes Consults ordered or reviewed: edical consult appreciated Mental Status Examination - Cognitive Function Orientation: Person Attention: Poor (some improvement) Concentration: Poor (some improvement) Association: Loose Fund of Knowledge: WNL - Mood Mood: Depressed, Anxious - Affect Affect: Flat, Other (irritable, labile) - Speech Speech: Soft - Formal Thought Process Formal Thought Process: Hallucinations (denies), Delusions, Paranoia (guarded), Loosening of associations - Suicidal Ideation Suicidal Ideation: No - Homicidal Ideation Homicidal Ideation: No Goal/Treatment Plan - Goal/Treatment Plan Need for Continued Stay: Remain at risks for inpatient hospitalization, Severe depression anxiety, Discharge may exacerbated symptoms, Severe functional impairment Progress Toward Problem(s) and Goals/Treatment Plan: milieu/structure/supportive therapy Atorvastatin [Lipitor] 10 mg PO DAILY Ibuprofen [Motrin Tab] 600 mg PO Q6 Spironolactone [Aldactone] 25 mg PO DAILY as per Spironolactone [Aldactone] 50 mg PO HS as per haldol 10mg amhs for psychosis remeron 15mg po hs for depression/insomnia ativan 0.5mg po 2 times a day for catatonia medical consult appreciated will give PRN meds will monitor closely pharmacy was called, pt was noncompliant with psychotiropic meds for the past year. Estimated Date of D/C: 11/08/16 (we'll monitor closely)
--- NOTE | 2016-11-05 11:20 | CP.PCM.PN ---
Subjective - Date & Time of Evaluation Date of Evaluation: 11/05/16 Time of Evaluation: 10:30 - Subjective Subjective: NAD Objective - Vital Signs/Intake and Output Vital Signs (last 24 hours): Temp Pulse Resp BP Pulse Ox 98.6 F 111 H 20 87/45 L 100 11/04/16 07:20 11/04/16 16:00 11/04/16 07:20 11/04/16 16:00 10/27/16 10:13 - Medications Medications: Current Medications Al Hydrox/Mg Hydrox/Simethicone (Maalox Plus 30 Ml) 30 ml PO DAILY PRN PRN Reason: Upset Stomach Last Admin: 11/05/16 00:27 Dose: 30 ml Haloperidol (Haldol) 10 mg PO [facility] PRN Reason: Protocol Last Admin: 11/05/16 10:14 Dose: 10 mg Home Med (Home Med) 1 unit TOP BID [facility] Last Admin: 11/04/16 21:04 Dose: 1 unit Home Med (Home Med) [address] [facility] Last Admin: 11/04/16 21:03 Dose: 1 unit Home Med (Home Med) 1 unit TOP BID [facility] Last Admin: 11/04/16 21:05 Dose: 1 unit Home Med (Home Med) 1 unit TOP BID [facility] Last Admin: 11/04/16 21:06 Dose: 1 unit Lorazepam (Ativan) 2 mg IM Q6H PRN; Protocol PRN Reason: agitation/catatonia/aggression Lorazepam (Ativan) 0.5 mg PO [facility] PRN Reason: Protocol Last Admin: 11/05/16 10:14 Dose: 0.5 mg Magnesium Hydroxide (Milk Of Magnesia) 30 ml PO DAILY PRN PRN Reason: Constipation Meloxicam (Mobic) 15 mg PO DAILY [facility] Last Admin: 11/04/16 09:12 Dose: 15 mg Mirtazapine (Remeron) 15 mg PO HS [facility] Last Admin: 11/04/16 21:02 Dose: 15 mg Ziprasidone (Geodon Inj) 20 mg IM Q6H PRN; Protocol PRN Reason: severe agitation Last Admin: 11/02/16 11:39 Dose: 20 mg Ziprasidone (Geodon Cap) 20 mg PO Q6H PRN; Protocol PRN Reason: agitation/psychosis Last Admin: 07/25/17 23:09 Dose: 20 mg Zolpidem Tartrate (Ambien) 10 mg PO HS PRN; Protocol PRN Reason: Insomnia Last Admin: 11/03/16 21:28 Dose: 10 mg - Labs Labs: 11/03/16 07:50 11/03/16 07:50 - Respiratory Exam Respiratory Exam: Clear to Ausculation Bilateral, NORMAL BREATHING PATTERN - Cardiovascular Exam Cardiovascular Exam: REGULAR RHYTHM - GI/Abdominal Exam GI & Abdominal Exam: Soft, Normal Bowel Sounds - Extremities Exam Extremities Exam: Full ROM, Normal Inspection - Neurological Exam Neurological Exam: Alert, Awake, Oriented x3 - Skin Skin Exam: Dry, Warm Assessment and Plan (1) Headache Status: Resolved (2) Schizoaffective disorder Status: Chronic (3) Back pain Status: Resolved (4) Elevated transaminase level Status: Acute - Assessment and Plan (Free Text) Plan: await repeat LFT's
[2016-11-05] MEDS: CICLOPIROX 0.77% TOP SCH ×2 (13:24→18:29)
[2016-11-05] MEDS: [UNRECOGNIZED DRUG - OTHER] TOP SCH ×2 (13:24→18:29)
[2016-11-05] MEDS: ELIDEL 1% TOP SCH ×2 (13:24→18:29)
[2016-11-05 14:47] LABS: ALB/GLOB RATIO 1.3 (1.1-1.8); ALT/SGPT 300 U/L (7-56); AMYLASE 89 U/L (35-125); AST/SGOT 124 U/L (15-39); BLOOD UREA NITROGEN 15 mg/dL (7-21); CALCIUM 9.4 mg/dL (8.4-10.5); GAMMA GLUTAMYL TRANSPEPTIDASE 104 U/L (8-78); GFR AFRICAN-AMERICAN > 60; GFR NON-AFRICAN AMERICAN > 60; LIPASE 75 U/L (23-300)
[2016-11-05] MEDS: TRETINOIN 0.025% TOP SCH (21:25)
[2016-11-06] MEDS: Alum-Mag Hydrox-Simethicone Susp (30 mL) PO PRN (00:01)
[2016-11-06] MEDS: CICLOPIROX 0.77% TOP SCH ×2 (08:00→18:20)
[2016-11-06] MEDS: ELIDEL 1% TOP SCH ×2 (08:00→18:20)
[2016-11-06] MEDS: [UNRECOGNIZED DRUG - OTHER] TOP SCH ×2 (08:00→18:20)
--- NOTE | 2016-11-06 08:51 | PCM.PYCHPN ---
Psychiatric Progress Note - Psychiatric Progress Note Patient seen today, length of contact: 25 min Patient Chief Complaint: "depressed" Problems Identified/Issues Discussed: I reviewed recent notes and met with patient at bedside. Again, patient is minimally cooperative and she responds to my questioning with very brief affirmations or denials. She still appears michel and depressed. Responses are relevant to questioning (though brief) and consistent with repeat questioning. Denies hallucinations. Patient has been taking her medications and denies any discomfort, pain or side effects. Denies issues with sleep. Nursing indicates that patient has been compliant with medications and participating in groups. Still appears constricted and withdrawn. There were no behavioral issues overnight Diagnostic Results: Schizoaffective disorder with catatonia Medication Change: No ( ) Medical Record Reviewed: Yes Mental Status Examination - Cognitive Function Orientation: Person Attention: Poor (some improvement) Concentration: Poor (some improvement) Association: Loose Fund of Knowledge: WNL - Mood Mood: Depressed, Anxious - Affect Affect: Other (constriced, labile) - Speech Speech: Soft - Formal Thought Process Formal Thought Process: Hallucinations (denies), Delusions, Paranoia (guarded), Loosening of associations - Suicidal Ideation Suicidal Ideation: No - Homicidal Ideation Homicidal Ideation: No Goal/Treatment Plan - Goal/Treatment Plan Need for Continued Stay: Remain at risks for inpatient hospitalization, Severe depression anxiety, Discharge may exacerbated symptoms, Severe functional impairment Progress Toward Problem(s) and Goals/Treatment Plan: * c/w current tx and plan * No new overnight labs * Vitals reviewed and noted below: Selected Entries 11/04/16 11/04/16 11/05/16 07:20 16:00 16:00 Temperature 98.6 F Pulse Rate 106 H 111 H 108 H Respiratory 20 Rate Blood Pressure 95/60 L 87/45 L 103/64 Estimated Date of D/C: 11/08/16 (we'll monitor closely)
--- NOTE | 2016-11-06 10:17 | CP.PCM.PN ---
Subjective - Date & Time of Evaluation Date of Evaluation: 11/06/16 Time of Evaluation: 09:45 - Subjective Subjective: NAD Objective - Vital Signs/Intake and Output Vital Signs (last 24 hours): Temp Pulse Resp BP Pulse Ox 98.2 F 91 H 20 95/56 L 100 11/06/16 06:35 11/06/16 06:35 11/06/16 06:35 11/06/16 06:35 10/27/16 10:13 - Medications Medications: Current Medications Al Hydrox/Mg Hydrox/Simethicone (Maalox Plus 30 Ml) 30 ml PO DAILY PRN PRN Reason: Upset Stomach Last Admin: 11/06/16 00:01 Dose: 30 ml Haloperidol (Haldol) 10 mg PO [facility] PRN Reason: Protocol Last Admin: 11/06/16 10:00 Dose: 10 mg Home Med (Home Med) 1 unit TOP [facility]ID [facility] Last Admin: 11/05/16 18:29 Dose: 1 unit Home Med (Home Med) 1 unit TOP [facility] Last Admin: 11/05/16 21:25 Dose: 1 unit Home Med (Home Med) 1 unit [facility] Last Admin: 11/05/16 18:29 Dose: 1 unit Home Med (Home Med) 1 unit [facility] Last Admin: 11/05/16 18:29 Dose: 1 unit Lorazepam (Ativan) 2 mg IM Q6H PRN; Protocol PRN Reason: agitation/catatonia/aggression Lorazepam (Ativan) 0.5 mg PO [facility] PRN Reason: Protocol Last Admin: 11/06/16 10:00 Dose: 0.5 mg Magnesium Hydroxide (Milk Of Magnesia) 30 ml PO DAILY PRN PRN Reason: Constipation Meloxicam (Mobic) 15 mg PO [facility] Last Admin: 11/06/16 10:00 Dose: 15 mg Mirtazapine (Remeron) 15 mg PO [facility] Last Admin: 11/05/16 21:24 Dose: 15 mg Ziprasidone (Geodon Inj) 20 mg IM Q6H PRN; Protocol PRN Reason: severe agitation Last Admin: 11/02/16 11:39 Dose: 20 mg Ziprasidone (Geodon Cap) 20 mg PO Q6H PRN; Protocol PRN Reason: agitation/psychosis Last Admin: 07/25/17 23:09 Dose: 20 mg Zolpidem Tartrate (Ambien) 10 mg PO HS PRN; Protocol PRN Reason: Insomnia Last Admin: 11/03/16 21:28 Dose: 10 mg - Labs Labs: 11/03/16 07:50 11/05/16 14:30 - Respiratory Exam Respiratory Exam: Clear to Ausculation Bilateral, NORMAL BREATHING PATTERN - Cardiovascular Exam Cardiovascular Exam: REGULAR RHYTHM - GI/Abdominal Exam GI & Abdominal Exam: Soft, Normal Bowel Sounds - Back Exam Back Exam: NORMAL INSPECTION - Neurological Exam Neurological Exam: Alert, Awake - Psychiatric Exam Psychiatric exam: Flat Affect - Skin Skin Exam: Dry, Warm Assessment and Plan (1) Headache Status: Resolved (2) Schizoaffective disorder Status: Chronic (3) Back pain Status: Resolved (4) Elevated transaminase level Status: Acute - Assessment and Plan (Free Text) Plan: monitor transaminase levels, consider matthew Montes
[2016-11-07 07:30] VITALS: TEMP 98
--- NOTE | 2016-11-07 08:43 | PCM.PYCHPN ---
Psychiatric Progress Note - Psychiatric Progress Note Patient seen today, length of contact: 25 min Patient Chief Complaint: "depressed" Problems Identified/Issues Discussed: I reviewed recent notes and met with patient in the day room. Again, patient is minimally cooperative and she responds to my questioning with very brief affirmations or denials. Eye contact is poor. She still appears michel and depressed. Responses are relevant to questioning (though brief) and consistent with repeat questioning. Denies hallucinations, SI or HI. Patient has been taking her medications and denies any discomfort, pain or side effects. Denies issues with sleep. Nursing indicates that patient has been a little difficult on the unit, still demanding at times. Doesn't appear engaged with treatment though attended some groups. Patient indicated to staff member that she was still hearing voices which she denied to me all weekend. Still appears constricted and withdrawn on the unit. There were no major behavioral issues over the weekend Diagnostic Results: Schizoaffective disorder with catatonia Medication Change: No ( ) Medical Record Reviewed: Yes Mental Status Examination - Cognitive Function Orientation: Person Attention: Poor (some improvement) Concentration: Poor (some improvement) Association: Loose Fund of Knowledge: WNL - Mood Mood: Depressed, Anxious - Affect Affect: Other (constriced, labile) - Speech Speech: Soft - Formal Thought Process Formal Thought Process: Hallucinations (denies), Delusions, Paranoia (guarded), Loosening of associations - Suicidal Ideation Suicidal Ideation: No - Homicidal Ideation Homicidal Ideation: No Goal/Treatment Plan - Goal/Treatment Plan Need for Continued Stay: Remain at risks for inpatient hospitalization, Severe depression anxiety, Discharge may exacerbated symptoms, Severe functional impairment Progress Toward Problem(s) and Goals/Treatment Plan: * c/w current tx and plan * Appreciate f/u by Dr. Singh on 11/06/16~monitoring transaminase levels, consider matthew Montes * No new overnight labs * Vitals reviewed and noted below: Selected Entries 11/06/16 11/06/16 04:00 06:35 Temperature 98.2 F Pulse Rate 121 H 91 H Respiratory 20 Rate Blood Pressure 122/78 95/56 L Estimated Date of D/C: 11/08/16 (we'll monitor closely)
[2016-11-07] MEDS: CICLOPIROX 0.77% TOP SCH ×2 (09:29→16:10)
[2016-11-07] MEDS: [UNRECOGNIZED DRUG - OTHER] TOP SCH ×2 (09:29→16:10)
[2016-11-07] MEDS: ELIDEL 1% TOP SCH ×2 (09:29→16:10)
--- NOTE | 2016-11-07 10:57 | CP.PCM.PN ---
Subjective - Date & Time of Evaluation Date of Evaluation: 11/07/16 Time of Evaluation: 10:15 - Subjective Subjective: NAD Objective - Vital Signs/Intake and Output Vital Signs (last 24 hours): Temp Pulse Resp BP Pulse Ox 98.0 F 107 H 18 100/66 100 11/07/16 07:45 11/07/16 07:45 11/07/16 07:45 11/07/16 07:45 10/27/16 10:13 - Medications Medications: Current Medications Al Hydrox/Mg Hydrox/Simethicone (Maalox Plus 30 Ml) 30 ml PO DAILY PRN PRN Reason: Upset Stomach Last Admin: 11/06/16 00:01 Dose: 30 ml Haloperidol (Haldol) 10 mg PO [facility] PRN Reason: Protocol Last Admin: 11/07/16 09:24 Dose: 10 mg Home Med (Home Med) 1 unit TOP BID [facility] Last Admin: 11/07/16 09:29 Dose: 1 unit Home Med (Home Med) 1 unit TOP [facility] Last Admin: 11/05/16 21:25 Dose: 1 unit Home Med (Home Med) 1 unit TOP BID [facility] Last Admin: 11/07/16 09:29 Dose: 1 unit Home Med (Home Med) 1 unit TOP BID [facility] Last Admin: 11/07/16 09:29 Dose: 1 unit Lorazepam (Ativan) 2 mg IM Q6H PRN; Protocol PRN Reason: agitation/catatonia/aggression Lorazepam (Ativan) 0.5 mg PO [facility] PRN Reason: Protocol Last Admin: 11/07/16 09:24 Dose: 0.5 mg Magnesium Hydroxide (Milk Of Magnesia) 30 ml PO DAILY PRN PRN Reason: Constipation Meloxicam (Mobic) 15 mg PO DAILY [facility] Last Admin: 11/07/16 09:24 Dose: 15 mg Mirtazapine (Remeron) 15 mg PO HS [facility] Last Admin: 11/06/16 21:56 Dose: 15 mg Ziprasidone (Geodon Inj) 20 mg IM Q6H PRN; Protocol PRN Reason: severe agitation Last Admin: 11/02/16 11:39 Dose: 20 mg Ziprasidone (Geodon Cap) 20 mg PO Q6H PRN; Protocol PRN Reason: agitation/psychosis Last Admin: 11/06/16 21:55 Dose: 20 mg Zolpidem Tartrate (Ambien) 10 mg PO HS PRN; Protocol PRN Reason: Insomnia Last Admin: 11/06/16 21:55 Dose: 10 mg - Labs Labs: 11/03/16 07:50 11/05/16 14:30 - Respiratory Exam Respiratory Exam: Clear to Ausculation Bilateral - Cardiovascular Exam Cardiovascular Exam: REGULAR RHYTHM - GI/Abdominal Exam GI & Abdominal Exam: Soft, Normal Bowel Sounds - Extremities Exam Extremities Exam: Normal Inspection - Neurological Exam Neurological Exam: Alert, Awake - Psychiatric Exam Psychiatric exam: Flat Affect - Skin Skin Exam: Dry, Warm Assessment and Plan (1) Headache Status: Resolved (2) Schizoaffective disorder Status: Chronic (3) Back pain Status: Resolved (4) Elevated transaminase level Status: Acute - Assessment and Plan (Free Text) Plan: repeat LFT's in am
[2016-11-07] MEDS: Alum-Mag Hydrox-Simethicone Susp (30 mL) PO PRN (20:07)
[2016-11-08 07:43] VITALS: BP 90/47; PULSE 102; RESP 20
[2016-11-08 08:06] LABS: ALB/GLOB RATIO 1.2 (1.1-1.8); ALBUMIN 3.9 g/dL (3.0-4.8); BILIRUBIN,DIRECT 0.5 mg/dL (0.0-0.4)
--- NOTE | 2016-11-08 09:29 | CP.PCM.PN ---
Subjective - Date & Time of Evaluation Date of Evaluation: 11/08/16 Time of Evaluation: 08:45 - Subjective Subjective: NAD Objective - Vital Signs/Intake and Output Vital Signs (last 24 hours): Temp Pulse Resp BP Pulse Ox 98.0 F 102 H 20 90/47 L 100 11/08/16 07:42 11/08/16 07:42 11/08/16 07:42 11/08/16 07:42 10/27/16 10:13 - Medications Medications: Current Medications Al Hydrox/Mg Hydrox/Simethicone (Maalox Plus 30 Ml) 30 ml PO DAILY PRN PRN Reason: Upset Stomach Last Admin: 11/07/16 20:07 Dose: 30 ml Haloperidol (Haldol) 10 mg PO [facility] PRN Reason: Protocol Last Admin: 11/07/16 21:27 Dose: 10 mg Home Med (Home Med) 1 unit TOP BID [facility] Last Admin: 11/07/16 16:10 Dose: 1 unit Home Med (Home Med) 1 unit TOP [facility] Last Admin: 11/05/16 21:25 Dose: 1 unit Home Med (Home Med) 1 unit TOP BID [facility] Last Admin: 11/07/16 16:10 Dose: 1 unit Home Med (Home Med) 1 unit TOP BID [facility] Last Admin: 11/07/16 16:10 Dose: 1 unit Lorazepam (Ativan) 2 mg IM Q6H PRN; Protocol PRN Reason: agitation/catatonia/aggression Lorazepam (Ativan) 0.5 mg PO [facility] PRN Reason: Protocol Last Admin: 11/07/16 21:26 Dose: 0.5 mg Magnesium Hydroxide (Milk Of Magnesia) 30 ml PO DAILY PRN PRN Reason: Constipation Meloxicam (Mobic) 15 mg PO DAILY [facility] Last Admin: 11/07/16 09:24 Dose: 15 mg Mirtazapine (Remeron) 15 mg PO HS [facility] Last Admin: 11/07/16 21:27 Dose: 15 mg Ziprasidone (Geodon Inj) 20 mg IM Q6H PRN; Protocol PRN Reason: severe agitation Last Admin: 11/02/16 11:39 Dose: 20 mg Ziprasidone (Geodon Cap) 20 mg PO Q6H PRN; Protocol PRN Reason: agitation/psychosis Last Admin: 07/30/17 23:25 Dose: 20 mg Zolpidem Tartrate (Ambien) 10 mg PO HS PRN; Protocol PRN Reason: Insomnia Last Admin: 11/06/16 21:55 Dose: 10 mg - Labs Labs: 11/03/16 07:50 11/05/16 14:30 - Respiratory Exam Respiratory Exam: Clear to Ausculation Bilateral, NORMAL BREATHING PATTERN - Cardiovascular Exam Cardiovascular Exam: REGULAR RHYTHM - GI/Abdominal Exam GI & Abdominal Exam: Soft, Normal Bowel Sounds - Extremities Exam Extremities Exam: Normal Inspection - Neurological Exam Neurological Exam: Alert, Awake - Skin Skin Exam: Dry, Warm Assessment and Plan (1) Headache Status: Resolved (2) Schizoaffective disorder Status: Chronic (3) Back pain Status: Resolved (4) Elevated transaminase level Status: Acute - Assessment and Plan (Free Text) Plan[facility]
[2016-11-08] MEDS: CICLOPIROX 0.77% TOP SCH (10:19)
[2016-11-08] MEDS: ELIDEL 1% TOP SCH (10:19)
[2016-11-08] MEDS: [UNRECOGNIZED DRUG - OTHER] TOP SCH (10:19)
--- NOTE | 2016-11-09 14:10 | PCM.PYCHDC ---
Mental Status Examination - Mental Status Examination Orientation: Person, Place, Situation, Time Memory: Intact Mood: Neutral Affect: Broad (and mood congruent) Speech: Appropriate Attention: WNL Concentration: WNL Association: WNL Fund of Knowledge: WNL Formal Thought Process: No Impairment Description of patient's judgement and insight: Pt has improved insight into mental and medical illness, pt was compliant with medications and unit rules and regulations, pt was going to groups, was calm, cooperative, socially appropriate, no behavioral incidents, no agitation, no aggression. Psychotic Thoughts and Behaviors: Pt denied v/a/t hallucinations, denied paranoid ideations, pt does not appear to be psychotic, and thought process is goal directed. Suicidal Ideation: No Current Homicidal Ideation?: No Plan: pt adamantly denied thoughts of harming self or others denied intent or plan. Discharge Summary - Discharge Note Reason for Hospitalization: pt was admitted for evaluation of depressive/psychosis/catatonia. pt wants to be admitted and get better for her symptoms. Psychiatric History (includes Medical, Family, Personal Hx): see HPI Laboratory Data: 11/03/16 07:50 11/05/16 14:30 Lab Results 11/08/16 07:00: Total Bilirubin 0.5, Direct Bilirubin 0.5 H, AST 118 H, ALT 276 H, Alkaline Phosphatase 131, Total Protein 7.1, Albumin 3.9, Globulin 3.2, Albumin/Globulin Ratio 1.2 11/05/16 14:30: Sodium 137, Potassium 4.4, Chloride 103, Carbon Dioxide 24, Anion Gap 14, BUN 15, Creatinine 0.6, Est GFR ( Amer) > 60, Est GFR (Non- Af Amer) > 60, Random Glucose 85, Calcium 9.4, Total Bilirubin 0.5, GGT 104 H, AST 124 H, ALT 300 H, Alkaline Phosphatase 131, Total Protein 7.2, Albumin 4.0, Globulin 3.1, Albumin/Globulin Ratio 1.3, Amylase 89, Lipase 75 11/03/16 07:50: Sodium 137, Potassium 4.0, Chloride 104, Carbon Dioxide 24, Anion Gap 13, BUN 10, Creatinine 0.6, Est GFR ( Amer) > 60, Est GFR (Non- Af Amer) > 60, Random Glucose 86, Calcium 8.6, Total Bilirubin 0.4, AST 274 H, ALT 276 H, Alkaline Phosphatase 101, Total Protein 6.2, Albumin 3.4, Globulin 2.8, Albumin/Globulin Ratio 1.2 11/03/16 07:50: WBC 4.9, RBC 4.13, Hgb 11.9 L, Hct 35.5 L, MCV 86.0, MCH 28.8, MCHC 33.5, RDW 12.8, Plt Count 247, MPV 9.7, Gran % 55.9, Lymph % (Auto) 31.5, [place] % (Auto) 9.3 H, Eos % (Auto) 3.1, Baso % (Auto) 0.2, Gran # 2.71, Lymph # 1.5, [place] # 0.5, Eos # 0.2, Baso # 0.01 10/26/16 13:20: Urine Opiates Screen Negative, Urine Methadone Screen Negative, Ur Barbiturates Screen Negative, Ur Phencyclidine Scrn Negative, Ur Amphetamines Screen Negative, U Benzodiazepines Scrn Negative, U Oth Cocaine Metabols Negative, U Cannabinoids Screen Negative 10/26/16 10:34: Urine Color Yellow, Urine Appearance Sl cloudy, Urine pH 6.0, Ur Specific [place] 1.025, Urine Protein 30 H, Urine Glucose (UA) Negative, Urine Ketones 15 H, Urine Blood Negative, Urine Nitrate Negative, Urine Bilirubin Small H, Urine Urobilinogen 0.2, Ur Leukocyte Esterase Negative, Urine RBC 0 - 2, Urine WBC 0 - 2, Ur Epithelial Cells 0 - 2, Calcium Oxalate Crystal Few, Urine Bacteria Few, Urine HCG, Qual Negative 10/26/16 09:30: Alcohol, Quantitative < 10 10/26/16 09:30: Salicylates < 1 L, Acetaminophen < 10.0 L 10/26/16 09:30: Sodium 143, Potassium 4.0, Chloride 108 H, Carbon Dioxide 25, Anion Gap 14, BUN 8, Creatinine 0.8, Est GFR ( Amer) > 60, Est GFR (Non- Af Amer) > 60, Random Glucose 88, Calcium 9.6, Total Bilirubin 1.1, AST 20, ALT 22, Alkaline Phosphatase 95, Total Creatine Kinase 35, Total Protein 7.7, Albumin 4.3, Globulin 3.3, Albumin/Globulin Ratio 1.3 10/26/16 09:30: WBC 5.4, RBC 4.73, Hgb 13.9, Hct 40.7, MCV 86.0, MCH 29.4, MCHC 34.2, RDW 12.9, Plt Count 278, MPV 9.8, Gran % 58.5, Lymph % (Auto) 29.3, [place] % (Auto) 10.3 H, Eos % (Auto) 1.5, Baso % (Auto) 0.4, Gran # 3.14, Lymph # 1.6, [place] # 0.6, Eos # 0.1, Baso # 0.02 Vital Signs Temp Pulse Resp BP Pulse Ox 11/08/16 07:42 98.0 F 102 H 20 90/47 L 11/07/16 16:21 110 H 116/76 11/07/16 07:45 98.0 F 107 H 18 100/66 11/07/16 07:28 98.0 F 107 H 18 100/66 11/06/16 06:35 98.2 F 91 H 20 95/56 L 11/06/16 04:00 121 H 122/78 11/05/16 16:00 108 H 103/64 11/04/16 16:00 111 H 87/45 L 11/04/16 07:20 98.6 F 106 H 20 95/60 L 11/03/16 20:52 116 H 119/78 11/03/16 07:21 98.4 F 100 H 20 108/73 11/02/16 16:00 113 H 101/53 L 11/02/16 07:43 97.9 F 97 H 20 99/60 L 10/31/16 16:28 105 H 124/76 10/31/16 07:00 97.5 F L 91 H 16 111/64 10/30/16 16:00 107 H 120/75 10/30/16 07:00 98.3 F 103 H 16 103/62 10/29/16 16:29 98.4 F 103 H 98/67 L 10/29/16 07:28 97.2 F L 99 H 20 97/71 L 10/28/16 07:18 97.9 F 80 20 95/54 L 10/27/16 16:00 76 102/68 10/27/16 10:13 97.9 F 72 18 112/55 L 100 10/27/16 00:42 97.8 F 70 16 92/58 L 99 10/26/16 16:55 70 18 107/73 100 10/26/16 13:20 80 18 119/80 99 10/26/16 11:00 72 16 122/77 99 10/26/16 08:35 98.2 F 72 18 122/84 97 Consultations:: List each consultation separately and include: 1. Reason for request. 2. Findings. 3. Follow-up Consultations: medical consult appreciated pls see notes for more detailed information Summary of Hospital Course include:: 1. Description of specific treatment plan utilized for patients during their course of treatmen. 2. Summarize the time- course for resolution of acute symptoms and/or regressed behaviors. 3. Describe issues identified and worked on during hospitalization. 4. Describe medication utilized. 5. Describe medical problems identified and treated. 6. Reassessment of suicide risk Summary of Hospital Course: Shortly pt is 26yo female with long h/o schizoaffective disorder, h/o inpatient hospitalizations, most recent was [facility] (about a year ago in August 2015), came to the ED c/o headache and chest pain, pt was found to be catatonic, was not talking, was refusing to give UA, annmarie Chen was called, for catatonia this senior writer recommended to give Ativan 2mg+irsperdal liquid PO, pt was compliant, this senior writer recommended screening by [facility] for involuntary commitment, but during the interview by the screener over night, pt was in agreement for admission under voluntary status. who was contract administrator last night recommended [facility] screening again, but pt was in agreement for voluntary admission. Pt initially was seen at ED, was not talking, was communicating with this senior writer by nodding her head. pt obviously needs further evaluation and stabilization, meds initiation and titration. at the time of initial evaluation presented to have fare ADLs marginal personal hygiene, multiple tattoos, flat affect, not talking. this wrier was asking yes-no questions, pt was nodding her head. pt was depressed, psychotic, pt was paranoid, hearing voices, pt has thoughts of harming others, but not herself, no intent or plan. pt reported that her appetite is poor, sleep is good. pt denied using drugs, denied smoking but she is former smoker. by the end of the interview pt was minimally talkative, psychotic: on question was she taking meds pt said "I eat salad and light soda", answers were not related to the questions being asked. labs reviewed, 10/26/16 09:30 10/26/16 09:30 Lab Results 10/26/16 13:20: Urine Opiates Screen Negative, Urine Methadone Screen Negative, Ur Barbiturates Screen Negative, Ur Phencyclidine Scrn Negative, Ur Amphetamines Screen Negative, U Benzodiazepines Scrn Negative, U Oth Cocaine Metabols Negative, U Cannabinoids Screen Negative 10/26/16 10:34: Urine Color Yellow, Urine Appearance Sl cloudy, Urine pH 6.0, Ur Specific [place] 1.025, Urine Protein 30 H, Urine Glucose (UA) Negative, Urine Ketones 15 H, Urine Blood Negative, Urine Nitrate Negative, Urine Bilirubin Small H, Urine Urobilinogen 0.2, Ur Leukocyte Esterase Negative, Urine RBC 0 - 2, Urine WBC 0 - 2, Ur Epithelial Cells 0 - 2, Calcium Oxalate Crystal Few, Urine Bacteria Few, Urine HCG, Qual Negative 10/26/16 09:30: Alcohol, Quantitative < 10 10/26/16 09:30: Salicylates < 1 L, Acetaminophen < 10.0 L 10/26/16 09:30: Sodium 143, Potassium 4.0, Chloride 108 H, Carbon Dioxide 25, Anion Gap 14, BUN 8, Creatinine 0.8, Est GFR ( Amer) > 60, Est GFR (Non- Af Amer) > 60, Random Glucose 88, Calcium 9.6, Total Bilirubin 1.1, AST 20, ALT 22, Alkaline Phosphatase 95, Total Creatine Kinase 35, Total Protein 7.7, Albumin 4.3, Globulin 3.3, Albumin/Globulin Ratio 1.3 10/26/16 09:30: WBC 5.4, RBC 4.73, Hgb 13.9, Hct 40.7, MCV 86.0, MCH 29.4, MCHC 34.2, RDW 12.9, Plt Count 278, MPV 9.8, Gran % 58.5, Lymph % (Auto) 29.3, [place] % (Auto) 10.3 H, Eos % (Auto) 1.5, Baso % (Auto) 0.4, Gran # 3.14, Lymph # 1.6, [place] # 0.6, Eos # 0.1, Baso # 0.02 Vital Signs Temp Pulse Resp BP Pulse Ox 10/27/16 10:13 97.9 F 72 18 112/55 L 100 10/27/16 00:42 97.8 F 70 16 92/58 L 99 10/26/16 16:55 70 18 107/73 100 10/26/16 13:20 80 18 119/80 99 10/26/16 11:00 72 16 122/77 99 10/26/16 08:35 98.2 F 72 18 122/84 97 pt was started on seroquel, ativan pt improved, asked seroquesl to be changed to haldol pt was stabilized on the following meds: haldol 10mg amhs for psychosis remeron 15mg po hs for depression/insomnia ativan 0.5mg po 2 times a day for catatonia, which was d/c later on. pt tolerated meds well no side effects observed or reported, AIMS 0, no EPS, pt was less psychotic, less depressed, no behavioral issues, catatonia much improved. Over the course of this hospitalization pt was attending groups, pt also had medication management, had therapeutic milieu. Overall pt improved significantly, pt's affect became brighter, pt was less depressed, has realistic future oriented plans "I want to be independent, I want to have my own apartment", pt also does not appear to be psychotic, or anxious, pt was socially appropriate, no behavioral issues, pts insight improved as well and soon pt deemed to be ready for discharge. At the time of the discharge pt denied been depressed, denied thoughts of harming self or others, denied psychotic symptoms, and pt does not appeared to be psychotic, denied been anxious, was considered to pose no threat to self or others, will be following up at 's office , information about follow up appointment, time and address provided to the pt, it is patient responsibility to follow up with outpatient clinic, PMD as well as specialists (see SW note for more detailed information). In case pt will need to obtain results of studies pending at discharge pt was provided with contact information of Psychiatric Inpatient unit [phone] as well as Medical Record Department [phone]. pt was provided with prescriptions for all of medications (please see medication reconciliation form) Pt was educated about safety plan in case of worsening of symptoms or in case of suicidal or homicidal ideation call 911 or go to the nearest ER, also was educated to take meds as prescribed and stay away from drugs, pt verbalized understanding. - Diagnosis (1) Catatonia associated with another mental disorder Status: Acute (2) Schizoaffective disorder Status: Chronic - Final Diagnosis (DSM 5) Condition upon Discharge: FAIR Disposition: HOME/ ROUTINE Follow-up Treatment Plan: At the time of the discharge pt denied been depressed, denied thoughts of harming self or others, denied psychotic symptoms, and pt does not appeared to be psychotic, denied been anxious, was considered to pose no threat to self or others, will be following up at 's office , information about follow up appointment, time and address provided to the pt, it is patient responsibility to follow up with outpatient clinic, PMD as well as specialists (see SW note for more detailed information). In case pt will need to obtain results of studies pending at discharge pt was provided with contact information of Psychiatric Inpatient unit [phone] as well as Medical Record Department [phone]. pt was provided with prescriptions for all of medications (please see medication reconciliation form) Pt was educated about safety plan in case of worsening of symptoms or in case of suicidal or homicidal ideation call 911 or go to the nearest ER, also was educated to take meds as prescribed and stay away from drugs, pt verbalized understanding. Prescriptions/Medication Reconciliation: Haloperidol [Haldol] 10 mg PO AMHS #30 tab Mirtazapine [Remeron] 15 mg PO HS #14 tab - Smoking Cessation Smoking Cessation Medication prescribed: No Reason for not providing: denied smoking - Antipsychotic Medications Pt discharged on 2 or more routine antipsychotic medications: No
== END 2016-11-08 10:49 | disposition home or self-care (01) | DRG 885 ==
LOC: ED 08:09 → ERH 10-27 10:08 → PSYC 10-27 11:25
PROVIDERS: ADMIT Psychiatry & Neurology Psychiatry; ATTEND Psychiatry & Neurology Psychiatry
PROC: GZ3ZZZZ Medication Management (ICD-10-PCS; principal; 2016-10-27)
DX: F20.2 Catatonic schizophrenia (principal); F25.9 Schizoaffective disorder, unspecified; R45.851 Suicidal ideations; R47.01 Aphasia; E78.5 Hyperlipidemia, unspecified; F41.0 Panic disorder [episodic paroxysmal anxiety]; F43.10 Post-traumatic stress disorder, unspecified; R51 Headache; F51.02 Adjustment insomnia; M54.9 Dorsalgia, unspecified; R74.0 Nonspecific elevation of levels of transaminase and lactic acid dehydrogenase [LDH]; Z91.19 Patient's noncompliance with other medical treatment and regimen; Z87.891 Personal history of nicotine dependence; Z90.710 Acquired absence of both cervix and uterus

== ENCOUNTER 2016-11-27 21:34 | Emergency (ER) | payer OTHER ==
[2016-11-27 21:34] VITALS: BMI 29.5
== END 2016-11-27 22:09 | disposition left against medical advice (07) ==
LOC: ED 21:34
DX: Z02.89 Encounter for other administrative examinations (principal); F32.9 Major depressive disorder, single episode, unspecified

== ENCOUNTER 2016-12-05 12:05 | Inpatient (IN) | payer OTHER, MEDICAID ==
[2016-12-05 12:06] VITALS: BMI 29.5
[2016-12-05 12:58] LABS: URINE BILIRUBIN SMALL (NEGATIVE); URINE BLOOD NEGATIVE (NEGATIVE); URINE GLUCOSE (UA) NEGATIVE (NEGATIVE); URINE KETONE 40 mg/dL (NEGATIVE); URINE LEUKOCYTE ESTERASE NEGATIVE Leu/uL (NEGATIVE); URINE PROTEIN TRACE mg/dL (<30 mg/dL); URINE UROBILINOGEN 0.2 E.U./dL (<1 E.U./dL)
[2016-12-05 13:02] LABS: URINE APPEARANCE CLEAR (CLEAR); URINE COLOR YELLOW (YELLOW)
[2016-12-05 13:17] LABS: URINE RBC 0 - 2 /hpf (0-2)
[2016-12-05 13:18] LABS: BASO # 0.01 K/mm3 (0.0-2.0); BASO % 0.2 % (0.0-3.0); EOS # 0.1 (0.0-0.7); EOS % 1.1 % (1.5-5.0); GRAN # 4.14 (1.4-6.5); GRAN % 65.2 % (50.0-68.0); HEMATOCRIT 41.4 % (36.0-48.0); LYMPH # 1.7 (1.2-3.4); LYMPH % 26.2 % (22.0-35.0); MEAN CELL VOLUME 87.2 fl (80.0-105.0); MEAN CORPUSCULAR HEMOGLOBIN 29.7 pg (25.0-35.0); MEAN CORPUSCULAR HGB CONC 34.1 g/dl (31.0-37.0); MEAN PLATELET VOLUME 9.1 fl (7.0-11.0); MONO # 0.5 (0.1-0.6); MONO % 7.3 % (1.0-6.0); RED CELL DISTRIBUTION WIDTH 12.8 % (11.5-14.5); WHITE BLOOD COUNT 6.3 10^3/ul (4.5-11.0)
[2016-12-05 13:18] LABS: URINE BACTERIA SMALL (NEG)
--- NOTE | 2016-12-05 13:26 | RAD ---
HISTORY: pes eval COMPARISON: Comparison chest 10/26/2016 FINDINGS: LUNGS: No active pulmonary disease. PLEURA: No significant pleural effusion identified, no pneumothorax apparent. CARDIOVASCULAR: Normal. OSSEOUS STRUCTURES: No significant abnormalities. VISUALIZED UPPER ABDOMEN: Normal. OTHER FINDINGS: None. IMPRESSION: No acute infiltrates
[2016-12-05 13:27] LABS: ALB/GLOB RATIO 1.3 (1.1-1.8); ALKALINE PHOSPHATASE 114 U/L (38-133); ALT/SGPT 24 U/L (7-56); AST/SGOT 22 U/L (15-39); BILIRUBIN,TOTAL 0.8 mg/dL (0.2-1.3); BLOOD UREA NITROGEN 9 mg/dL (7-21); CALCIUM 9.6 mg/dL (8.4-10.5); CARBON DIOXIDE 25 mmol/L (21-33); CHLORIDE 105 mmol/L (98-107); GFR AFRICAN-AMERICAN > 60; GLUCOSE,RANDOM 97 mg/dL (70-110); SODIUM 142 mmol/L (132-148); TOTAL PROTEIN 7.9 g/dL (5.8-8.3)
[2016-12-05] MEDS ORDERED: Iohexol 350 MG/100 ML VIAL ONE (14:29)
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
[2016-12-05] MEDS ORDERED: Sodium Chloride 0.9% 1,000 ML IV STA (14:54)
--- NOTE | 2016-12-05 15:38 | CT ---
PROCEDURE: CT Abdomen and Pelvis with contrast HISTORY: ruq/rlq abd pain COMPARISON: None. TECHNIQUE: Contrast dose: 100 cc of Omnipaque 350 contrast Radiation dose: Total exam DLP = 319.98 mGy-cm. This CT exam was performed using one or more of the following dose reduction techniques: Automated exposure control, adjustment of the mA and/or kV according to patient size, and/or use of iterative reconstruction technique. FINDINGS: LOWER THORAX: Lung bases are clear. Heart size normal. Tiny hiatal hernia. LIVER: The liver exhibits normal size. . No hepatic mass collection or calcification. Portal and splenic veins are opacified. GALLBLADDER AND BILE DUCTS: Gallbladder is physiologically distended. No evidence of intraluminal gallbladder calculi. PANCREAS: Unremarkable. No gross lesion or ductal dilatation. SPLEEN: Unremarkable. ADRENALS: No adrenal lesions seen. KIDNEYS AND URETERS: Unremarkable. No hydronephrosis. No solid mass. VASCULATURE: Unremarkable. No aortic aneurysm. BOWEL: Evaluation of the bowel is somewhat limited due to lack of oral contrast material. . APPENDIX: Normal-appearing appendix best seen on coronal image number [id number] PERITONEUM: Unremarkable. No free fluid. No free air. Re- demonstrated are changes of ventral wall hernia repair unaltered from prior exam. LYMPH NODES: Unremarkable. No enlarged lymph nodes. BLADDER: Urinary bladder is incompletely distended which may account for thick-walled appearance. Possibility of a cystitis not excluded. REPRODUCTIVE: There is a small approximately 12 mm in a involuting and or hemorrhagic right ovarian cyst. BONES: Osseous structures grossly intact OTHER FINDINGS: None. IMPRESSION: There is a small involuting right ovarian cyst as described. Wall thickening of the urinary bladder likely due to incomplete distention however cystitis not excluded. No evidence acute appendicitis.
[2016-12-05 16:58] VITALS: O2SAT 100
[2016-12-05] MEDS ORDERED: Magnesium Hydroxide Susp 30 ml UD PO PRN (17:59)
[2016-12-05] MEDS ORDERED: Alum-Mag Hydrox-Simethicone Susp (30 mL) PO PRN (17:59)
[2016-12-05] MEDS ORDERED: LORazepam Half Tablet 0.25 MG PO PRN (18:09)
--- NOTE | 2016-12-05 19:18 | PCM.BM ---
<Hilario Gill O - Last Filed: 12/05/16 19:15> Treatment Plan Problems - Problems identified on initial assessmt depression Date Initiated: 12/05/16 Time Initiated: 19:15 Assessment reference: NA Status: Active Priority: 1 noncompliance with medications Date Initiated: 12/05/16 Time Initiated: 19:16 Assessment reference: NA Status: Active Priority: 1 Treatment assets and liabiliti Patient Assests: ADL independent, good support system Patient Liabilities: language/speech - Milieu Protocol Maintain good personal hygiene: daily Encourage regular showers, daily Remind patient to perform daily oral care, daily Assist patient to perform ADL's Maintain personal safety: daily Educate patient to report safety concerns to staff, daily Monitor environment for contraband/sharps Medication safety: Monitor for expected outcome, potential side effects: daily, Assess barriers to learning: daily, Assess readiness for medication education: daily Family Contact Family involvement: Family/SO is involved Family contact: Patient agrees to contact, Family has been contacted by patient , Telephone contact initiated by staff Family contact name: Allen [phone] Discharge/Continuing Care - Education Needs Education Needs: Family Placement options, Patient Medication, Patient Diagnosis /Disease Process, Patient Coping Skills, Patient Anger Management skills, Patient Community resources, Patient Activities of Daily Living, Patient Personal Hygiene/Grooming - Discharge Discharge Criteria: Ability to care for self - Treatment Team Participation Patient/Family/SO Statement: 12/05/16 19:17 Patients selectively mute <SergeijennmollyCarline see A - Last Filed: 12/06/16 13:54> - Diagnosis (1) Schizoaffective disorder Status: Chronic Interventions: 12/06/16 13:54 Psychoeducation/supportive therapy Psychopharmacology/adjustment of medications as needed/ monitoring possible side effects Evaluate pt on daily basis Compliance with medications and follow up appointments Long acting medication if pt is noncompliant with pill form Suicide and homicide risk assessment and prevention, coping strategies, safety plan Relapse prevention Reduction of symptoms Improve functional status Possible assertive community treatmen Family involvement Possible social skill training as outpatient (2) Catatonia associated with another mental disorder Status: Acute Interventions: 12/06/16 13:56 med management (benzos) (3) PTSD (post-traumatic stress disorder) Status: Acute Interventions: 12/06/16 13:56 med management meds compliance CBT as outpatient supportive therapy <Margie Pinon - Last Filed: 12/08/16 15:13>
--- NOTE | 2016-12-05 21:02 | CARD ---
APPROVED REPORT EKG Measurement Heart [id number] MI [id number] <Conclusion> Normal sinus rhythm Normal ECG
[2016-12-05] MEDS ORDERED: LORazepam Half Tablet 0.25 MG PO SCH (22:00)
[2016-12-06] MEDS: DiphenhydrAMINE 50 mg/ml Inj IM SCH ×2 (06:00)
[2016-12-06] MEDS ORDERED: DiphenhydrAMINE 50 mg/ml Inj IM PRN (08:11)
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
--- NOTE | 2016-12-07 09:20 | CP.PCM.PN ---
Subjective - Date & Time of Evaluation Date of Evaluation: 12/07/16 Time of Evaluation: 09:00 - Subjective Subjective: NAD, OOB ambulating Objective - Vital Signs/Intake and Output Vital Signs (last 24 hours): Temp Pulse Resp BP Pulse Ox 98.1 F 74 20 89/54 L 100 12/07/16 06:54 12/07/16 06:54 12/07/16 06:54 12/07/16 06:54 12/05/16 16:55 - Medications Medications: Current Medications Acetaminophen (Tylenol 325mg Tab) 650 mg PO Q6H PRN PRN Reason: Pain, moderate (4-7) Al Hydrox/Mg Hydrox/Simethicone (Maalox Plus 30 Ml) 30 ml PO DAILY PRN PRN Reason: Indigestion / Heartburn Benztropine Mesylate (Cogentin) 0.5 mg PO [facility] Last Admin: 12/07/16 09:09 Dose: 0.5 mg Diphenhydramine HCl (Benadryl) 50 mg PO Q6 PRN PRN Reason: Agitation Last Admin: 12/05/16 21:12 Dose: 50 mg Diphenhydramine HCl (Benadryl) 50 mg IM Q6H PRN PRN Reason: Allergy symptoms Gabapentin (Neurontin) 100 mg PO TID [facility] PRN Reason: Protocol Last Admin: 12/07/16 09:10 Dose: 100 mg Haloperidol (Haldol) 5 mg PO Q6 PRN; Protocol PRN Reason: Agitation Haloperidol Lactate (Haldol) 5 mg IM Q6 PRN; Protocol PRN Reason: Agitation Lorazepam (Ativan) 1 mg PO BID [facility] PRN Reason: Protocol Last Admin: 12/07/16 09:09 Dose: 1 mg Lorazepam (Ativan) 1 mg PO HS [facility] PRN Reason: Protocol Last Admin: 12/06/16 22:04 Dose: 1 mg Lorazepam (Ativan) 2 mg PO Q6 PRN; Protocol PRN Reason: Agitation Lorazepam (Ativan) 2 mg IM Q6 PRN; Protocol PRN Reason: Agitation Magnesium Hydroxide (Milk Of Magnesia) 30 ml PO DAILY PRN PRN Reason: Constipation Mirtazapine (Remeron) 15 mg PO HS [facility] Last Admin: 12/06/16 22:04 Dose: 15 mg Quetiapine Fumarate (Seroquel) 100 mg PO [facility] PRN Reason: Protocol Last Admin: 12/07/16 09:10 Dose: 100 mg - Respiratory Exam Respiratory Exam: Clear to Ausculation Bilateral, NORMAL BREATHING PATTERN - Cardiovascular Exam Cardiovascular Exam: REGULAR RHYTHM - GI/Abdominal Exam GI & Abdominal Exam: Soft, Normal Bowel Sounds - Extremities Exam Extremities Exam: Full ROM - Neurological Exam Neurological Exam: Awake, Oriented x3 - Skin Skin Exam: Dry, Warm Assessment and Plan (1) Bacteriuria Status: Inactive (2) Schizoaffective disorder Status: Chronic (3) Nephrolithiasis Status: Inactive - Assessment and Plan (Free Text) Plan: continue psych tx, medically stable
--- NOTE | 2016-12-07 16:11 | PCM.PYCHPN ---
Psychiatric Progress Note - Psychiatric Progress Note Patient seen today, length of contact: 30min Patient Chief Complaint: "I have no thoughts..." Problems Identified/Issues Discussed: Suicide/ homicide prevention, past psychiatric h/o, current psychiatric symptoms , medical problems, risk/benefits and alternatives of medications, medications compliance, coping strategies, substance abuse h/o, relapse prevention, importance of follow up with psychiatrist and therapist, discharge plan. Medical Problems: pt has h/o dyslipidemia, UTIs, was seen by . Diagnostic Results: 12/05/16 12/05/16 12/05/16 12:33 12:33 12:33 WBC RBC Hgb Hct MCV MCH MCHC RDW Plt Count MPV Gran % Lymph % (Auto) [place] % (Auto) Eos % (Auto) Baso % (Auto) Gran # Lymph # [place] # Eos # Baso # Sodium 142 Potassium 4.0 Chloride 105 Carbon Dioxide 25 Anion Gap 16 BUN 9 Creatinine 0.7 Est GFR ( Amer) > 60 Est GFR (Non-Af Amer) > 60 Random Glucose 97 Calcium 9.6 Total Bilirubin 0.8 AST 22 ALT 24 Alkaline Phosphatase 114 Total Protein 7.9 Albumin 4.5 Globulin 3.4 Albumin/Globulin Ratio 1.3 Urine Color Urine Appearance Urine pH Ur Specific [place] Urine Protein Urine Glucose (UA) Urine Ketones Urine Blood Urine Nitrate Urine Bilirubin Urine Urobilinogen Ur Leukocyte Esterase Urine RBC Urine WBC Ur Epithelial Cells Urine Bacteria Urine HCG, Qual Salicylates < 1 L Urine Opiates Screen Urine Methadone Screen Acetaminophen < 10.0 L Ur Barbiturates Screen Ur Phencyclidine Scrn Ur Amphetamines Screen U Benzodiazepines Scrn U Oth Cocaine Metabols U Cannabinoids Screen Alcohol, Quantitative < 10 12/05/16 12/05/16 12/05/16 12:33 12:30 12:30 WBC 6.3 D RBC 4.75 Hgb 14.1 Hct 41.4 MCV 87.2 MCH 29.7 MCHC 34.1 RDW 12.8 Plt Count 288 MPV 9.1 Gran % 65.2 Lymph % (Auto) 26.2 [place] % (Auto) 7.3 H Eos % (Auto) 1.1 L Baso % (Auto) 0.2 Gran # 4.14 Lymph # 1.7 [place] # 0.5 Eos # 0.1 Baso # 0.01 Sodium Potassium Chloride Carbon Dioxide Anion Gap BUN Creatinine Est GFR ( Amer) Est GFR (Non-Af Amer) Random Glucose Calcium Total Bilirubin AST ALT Alkaline Phosphatase Total Protein Albumin Globulin Albumin/Globulin Ratio Urine Color Yellow Urine Appearance Clear Urine pH 6.0 Ur Specific [place] >= 1.030 Urine Protein Trace H Urine Glucose (UA) Negative Urine Ketones 40 H Urine Blood Negative Urine Nitrate Negative Urine Bilirubin Small H Urine Urobilinogen 0.2 Ur Leukocyte Esterase Negative Urine RBC 0 - 2 Urine WBC 1 - 3 Ur Epithelial Cells 3 - 4 Urine Bacteria Small Urine HCG, Qual Negative Salicylates Urine Opiates Screen Negative Urine Methadone Screen Negative Acetaminophen Ur Barbiturates Screen Negative Ur Phencyclidine Scrn Negative Ur Amphetamines Screen Negative U Benzodiazepines Scrn Negative U Oth Cocaine Metabols Negative U Cannabinoids Screen Negative Alcohol, Quantitative Vital Signs Temp Pulse Resp BP Pulse Ox 12/07/16 06:54 98.1 F 74 20 89/54 L 12/06/16 16:27 97.6 F 60 106/57 L 12/06/16 06:41 97.3 F L 59 L 20 107/62 12/05/16 18:28 16 12/05/16 16:55 96 H 16 124/76 100 12/05/16 14:15 90 16 100/76 98 12/05/16 12:17 98.9 F 85 20 100/64 DSM 5 Symptoms Update: Shortly pt is 26yo female with long h/o schizoaffective disorder, h/o inpatient hospitalizations, most recent was [facility] (about a a month ago to this facility), came to the ED accompanied by pt's mother who is reported pt was not taking her medications, was in catatonic stage, was not talking for the past week, was disorganized in her behavior, was taking a shower with the clothes on, pt also was vomiting into the family drinking cups, pt also was not sleeping, was not functioning, needs further evaluation and stabilization, meds resumption and titration. pt was seen at the treatment team meeting, pt presented to be less irritable, less angry, flat affect, pt seems to have teary eyes, was asked why pt said that she does not know. pt also reported it is hard to talk because she has no thoughts, severe thought blocking. pt denied hearing voices, denied seeing things, last time was prior to admission pt saw "a man sitting on the brown chair". pt denied auditory hallucinations. as per staff pt is irritable, at times argumentative, no physical aggression, no agitation. pt tolerated meds well, no side effects observed or reported, AIMS 0, no EPS. Impression: schizoaffective disorder, bipolar type, with catatonic symptoms. Medication Change: Yes (resumed) Medical Record Reviewed: Yes Consults ordered or reviewed: medical consult appreciated Mental Status Examination - Cognitive Function Orientation: Person, Place, Situation Memory: Intact Attention: Poor Concentration: Poor Association: Loose Fund of Knowledge: Poor - Mood Mood: Depressed - Affect Affect: Flat - Formal Thought Process Formal Thought Process: Hallucinations (denied), Other (disorganized in thoughts and behavior) - Suicidal Ideation Suicidal Ideation: No - Homicidal Ideation Homicidal Ideation: No Goal/Treatment Plan - Goal/Treatment Plan Need for Continued Stay: Remain at risks for inpatient hospitalization, Severe depression anxiety, Discharge may exacerbated symptoms, Severe functional impairment Progress Toward Problem(s) and Goals/Treatment Plan: milieu/structure/supportive therapy seroquel 100mg po amhs for psychosis (pt was not taking it) ativan 1mg po amhs for catonia will give remeron 15mg po hs for depression/insomnia medical consult appreciated will give PRN meds will monitor closely pharmacy was called family involvement Estimated Date of D/C: 12/13/16
--- NOTE | 2016-12-08 09:40 | CP.PCM.PN ---
Subjective - Date & Time of Evaluation Date of Evaluation: 12/08/16 Time of Evaluation: 09:30 - Subjective Subjective: not easily arousable, refusing meds Objective - Vital Signs/Intake and Output Vital Signs (last 24 hours): Temp Pulse Resp BP Pulse Ox 98.3 F 86 18 98/58 L 100 12/08/16 06:35 12/08/16 06:35 12/08/16 06:35 12/08/16 06:35 12/05/16 16:55 - Medications Medications: Current Medications Acetaminophen (Tylenol 325mg Tab) 650 mg PO Q6H PRN PRN Reason: Pain, moderate (4-7) Al Hydrox/Mg Hydrox/Simethicone (Maalox Plus 30 Ml) 30 ml PO DAILY PRN PRN Reason: Indigestion / Heartburn Benztropine Mesylate (Cogentin) 0.5 mg PO AMHS [facility] Last Admin: 12/07/16 21:35 Dose: Not Given Diphenhydramine HCl (Benadryl) 50 mg PO Q6 PRN PRN Reason: Agitation Last Admin: 12/05/16 21:12 Dose: 50 mg Diphenhydramine HCl (Benadryl) 50 mg IM Q6H PRN PRN Reason: Allergy symptoms Gabapentin (Neurontin) 100 mg PO TID [facility] PRN Reason: Protocol Last Admin: 12/07/16 17:06 Dose: 100 mg Haloperidol (Haldol) 5 mg PO Q6 PRN; Protocol PRN Reason: Agitation Haloperidol Lactate (Haldol) 5 mg IM Q6 PRN; Protocol PRN Reason: Agitation Lorazepam (Ativan) 1 mg PO BID [facility] PRN Reason: Protocol Last Admin: 12/07/16 17:06 Dose: 1 mg Lorazepam (Ativan) 1 mg PO HS [facility] PRN Reason: Protocol Last Admin: 12/07/16 21:34 Dose: Not Given Lorazepam (Ativan) 2 mg PO Q6 PRN; Protocol PRN Reason: Agitation Lorazepam (Ativan) 2 mg IM Q6 PRN; Protocol PRN Reason: Agitation Magnesium Hydroxide (Milk Of Magnesia) 30 ml PO DAILY PRN PRN Reason: Constipation Mirtazapine (Remeron) 15 mg PO HS [facility] Last Admin: 12/07/16 21:35 Dose: Not Given Quetiapine Fumarate (Seroquel) 100 mg PO AMHS [facility] PRN Reason: Protocol Last Admin: 12/07/16 21:35 Dose: Not Given - Respiratory Exam Respiratory Exam: Clear to Ausculation Bilateral, NORMAL BREATHING PATTERN - Cardiovascular Exam Cardiovascular Exam: REGULAR RHYTHM - GI/Abdominal Exam GI & Abdominal Exam: Soft, Normal Bowel Sounds - Back Exam Back Exam: NORMAL INSPECTION - Neurological Exam Neurological Exam: Altered - Psychiatric Exam Psychiatric exam: Depressed, Flat Affect Assessment and Plan (1) Bacteriuria Status: Inactive (2) Schizoaffective disorder Status: Chronic (3) Nephrolithiasis Status: Inactive - Assessment and Plan (Free Text) Plan: medically stable, continue psych mgmt
--- NOTE | 2016-12-08 16:33 | PCM.PYCHPN ---
Psychiatric Progress Note - Psychiatric Progress Note Patient seen today, length of contact: 30min Patient Chief Complaint: "so-so" Problems Identified/Issues Discussed: Suicide/ homicide prevention, past psychiatric h/o, current psychiatric symptoms , medical problems, risk/benefits and alternatives of medications, medications compliance, coping strategies, substance abuse h/o, relapse prevention, importance of follow up with psychiatrist and therapist, discharge plan. Medical Problems: pt has h/o dyslipidemia, UTIs, was seen by . Diagnostic Results: 12/05/16 12/05/16 12/05/16 12:33 12:33 12:33 WBC RBC Hgb Hct MCV MCH MCHC RDW Plt Count MPV Gran % Lymph % (Auto) [place] % (Auto) Eos % (Auto) Baso % (Auto) Gran # Lymph # [place] # Eos # Baso # Sodium 142 Potassium 4.0 Chloride 105 Carbon Dioxide 25 Anion Gap 16 BUN 9 Creatinine 0.7 Est GFR ( Amer) > 60 Est GFR (Non-Af Amer) > 60 Random Glucose 97 Calcium 9.6 Total Bilirubin 0.8 AST 22 ALT 24 Alkaline Phosphatase 114 Total Protein 7.9 Albumin 4.5 Globulin 3.4 Albumin/Globulin Ratio 1.3 Urine Color Urine Appearance Urine pH Ur Specific [place] Urine Protein Urine Glucose (UA) Urine Ketones Urine Blood Urine Nitrate Urine Bilirubin Urine Urobilinogen Ur Leukocyte Esterase Urine RBC Urine WBC Ur Epithelial Cells Urine Bacteria Urine HCG, Qual Salicylates < 1 L Urine Opiates Screen Urine Methadone Screen Acetaminophen < 10.0 L Ur Barbiturates Screen Ur Phencyclidine Scrn Ur Amphetamines Screen U Benzodiazepines Scrn U Oth Cocaine Metabols U Cannabinoids Screen Alcohol, Quantitative < 10 12/05/16 12/05/16 12/05/16 12:33 12:30 12:30 WBC 6.3 D RBC 4.75 Hgb 14.1 Hct 41.4 MCV 87.2 MCH 29.7 MCHC 34.1 RDW 12.8 Plt Count 288 MPV 9.1 Gran % 65.2 Lymph % (Auto) 26.2 [place] % (Auto) 7.3 H Eos % (Auto) 1.1 L Baso % (Auto) 0.2 Gran # 4.14 Lymph # 1.7 [place] # 0.5 Eos # 0.1 Baso # 0.01 Sodium Potassium Chloride Carbon Dioxide Anion Gap BUN Creatinine Est GFR ( Amer) Est GFR (Non-Af Amer) Random Glucose Calcium Total Bilirubin AST ALT Alkaline Phosphatase Total Protein Albumin Globulin Albumin/Globulin Ratio Urine Color Yellow Urine Appearance Clear Urine pH 6.0 Ur Specific [place] >= 1.030 Urine Protein Trace H Urine Glucose (UA) Negative Urine Ketones 40 H Urine Blood Negative Urine Nitrate Negative Urine Bilirubin Small H Urine Urobilinogen 0.2 Ur Leukocyte Esterase Negative Urine RBC 0 - 2 Urine WBC 1 - 3 Ur Epithelial Cells 3 - 4 Urine Bacteria Small Urine HCG, Qual Negative Salicylates Urine Opiates Screen Negative Urine Methadone Screen Negative Acetaminophen Ur Barbiturates Screen Negative Ur Phencyclidine Scrn Negative Ur Amphetamines Screen Negative U Benzodiazepines Scrn Negative U Oth Cocaine Metabols Negative U Cannabinoids Screen Negative Alcohol, Quantitative Vital Signs Temp Pulse Resp BP Pulse Ox 12/07/16 06:54 98.1 F 74 20 89/54 L 12/06/16 16:27 97.6 F 60 106/57 L 12/06/16 06:41 97.3 F L 59 L 20 107/62 12/05/16 18:28 16 12/05/16 16:55 96 H 16 124/76 100 12/05/16 14:15 90 16 100/76 98 12/05/16 12:17 98.9 F 85 20 100/64 DSM 5 Symptoms Update: Shortly pt is 26yo female with long h/o schizoaffective disorder, h/o inpatient hospitalizations, most recent was [facility] [place] (about a a month ago to this facility), came to the ED accompanied by pt's mother who is reported pt was not taking her medications, was in catatonic stage, was not talking for the past week, was disorganized in her behavior, was taking a shower with the clothes on, pt also was vomiting into the family drinking cups, pt also was not sleeping, was not functioning, needs further evaluation and stabilization, meds resumption and titration. pt was seen in her room, in catatonic stage, was not talking, was communicating with gesticulations, she sowed that she is so-so today, pt presented to be less irritable, less angry, flat affect, seems to be withdrawn. pt refused hs dose of meds, encouraged to take meds. pt denied hearing voices, denied seeing things, last time was prior to admission pt saw "a man sitting on the brown chair". pt denied auditory hallucinations. as per staff pt is irritable, at times argumentative, no physical aggression, no agitation. pt tolerated meds well, no side effects observed or reported, AIMS 0, no EPS. family meeting requested for tomorrow with pt's mother. Impression: schizoaffective disorder, bipolar type, with catatonic symptoms. Medication Change: Yes (resumed) Medical Record Reviewed: Yes Mental Status Examination - Cognitive Function Orientation: Person, Place, Situation Memory: Intact Attention: Poor Concentration: Poor Association: Loose Fund of Knowledge: Poor - Mood Mood: Depressed - Affect Affect: Flat - Formal Thought Process Formal Thought Process: Hallucinations (denied), Other (disorganized in thoughts and behavior) - Suicidal Ideation Suicidal Ideation: No - Homicidal Ideation Homicidal Ideation: No Goal/Treatment Plan - Goal/Treatment Plan Need for Continued Stay: Remain at risks for inpatient hospitalization, Severe depression anxiety, Discharge may exacerbated symptoms, Severe functional impairment Progress Toward Problem(s) and Goals/Treatment Plan: milieu/structure/supportive therapy seroquel 100mg po amhs for psychosis (pt was not taking it) ativan 1mg po amhs for catonia will give remeron 15mg po hs for depression/insomnia medical consult appreciated will give PRN meds will monitor closely pharmacy was called family meeting tomorrow Estimated Date of D/C: 12/13/16
--- NOTE | 2016-12-09 09:51 | CP.PCM.PN ---
Subjective - Date & Time of Evaluation Date of Evaluation: 12/09/16 Time of Evaluation: 09:30 - Subjective Subjective: NAD Objective - Vital Signs/Intake and Output Vital Signs (last 24 hours): Temp Pulse Resp BP Pulse Ox 98.3 F 86 18 98/58 L 100 12/08/16 06:35 12/08/16 06:35 12/08/16 06:35 12/08/16 06:35 12/05/16 16:55 - Medications Medications: Current Medications Acetaminophen (Tylenol 325mg Tab) 650 mg PO Q6H PRN PRN Reason: Pain, moderate (4-7) Al Hydrox/Mg Hydrox/Simethicone (Maalox Plus 30 Ml) 30 ml PO DAILY PRN PRN Reason: Indigestion / Heartburn Diphenhydramine HCl (Benadryl) 50 mg PO Q6 PRN PRN Reason: Agitation Last Admin: 12/05/16 21:12 Dose: 50 mg Diphenhydramine HCl (Benadryl) 50 mg IM Q6H PRN PRN Reason: Allergy symptoms Gabapentin (Neurontin) 100 mg PO TID [facility] PRN Reason: Protocol Last Admin: 12/09/16 09:04 Dose: 100 mg Haloperidol (Haldol) 5 mg PO Q6 PRN; Protocol PRN Reason: Agitation Haloperidol Lactate (Haldol) 5 mg IM Q6 PRN; Protocol PRN Reason: Agitation Lorazepam (Ativan) 1 mg PO BID [facility] PRN Reason: Protocol Last Admin: 12/09/16 09:05 Dose: 1 mg Lorazepam (Ativan) 1 mg PO HS [facility] PRN Reason: Protocol Last Admin: 12/08/16 21:08 Dose: 1 mg Lorazepam (Ativan) 2 mg PO Q6 PRN; Protocol PRN Reason: Agitation Lorazepam (Ativan) 2 mg IM Q6 PRN; Protocol PRN Reason: Agitation Magnesium Hydroxide (Milk Of Magnesia) 30 ml PO DAILY PRN PRN Reason: Constipation Mirtazapine (Remeron) 15 mg PO HS [facility] Last Admin: 12/08/16 21:08 Dose: 15 mg Quetiapine Fumarate (Seroquel) 100 mg PO AMHS [facility] PRN Reason: Protocol Last Admin: 12/09/16 09:05 Dose: 100 mg - Respiratory Exam Respiratory Exam: Clear to Ausculation Bilateral, NORMAL BREATHING PATTERN - Cardiovascular Exam Cardiovascular Exam: REGULAR RHYTHM - GI/Abdominal Exam GI & Abdominal Exam: Soft, Normal Bowel Sounds - Extremities Exam Extremities Exam: Normal Inspection - Neurological Exam Neurological Exam: Alert, Awake Assessment and Plan (1) Schizoaffective disorder Status: Chronic - Assessment and Plan (Free Text) Plan: medically stable, will sign-off
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
--- NOTE | 2016-12-10 16:39 | PCM.PYCHPN ---
Psychiatric Progress Note - Psychiatric Progress Note Patient seen today, length of contact: 30min Patient Chief Complaint: "..." Problems Identified/Issues Discussed: Suicide/ homicide prevention, past psychiatric h/o, current psychiatric symptoms , medical problems, risk/benefits and alternatives of medications, medications compliance, coping strategies, substance abuse h/o, relapse prevention, importance of follow up with psychiatrist and therapist, discharge plan. Medical Problems: pt has h/o dyslipidemia, UTIs, was seen by . Diagnostic Results: 12/05/16 12/05/16 12/05/16 12:33 12:33 12:33 WBC RBC Hgb Hct MCV MCH MCHC RDW Plt Count MPV Gran % Lymph % (Auto) [place] % (Auto) Eos % (Auto) Baso % (Auto) Gran # Lymph # [place] # Eos # Baso # Sodium 142 Potassium 4.0 Chloride 105 Carbon Dioxide 25 Anion Gap 16 BUN 9 Creatinine 0.7 Est GFR ( Amer) > 60 Est GFR (Non-Af Amer) > 60 Random Glucose 97 Calcium 9.6 Total Bilirubin 0.8 AST 22 ALT 24 Alkaline Phosphatase 114 Total Protein 7.9 Albumin 4.5 Globulin 3.4 Albumin/Globulin Ratio 1.3 Urine Color Urine Appearance Urine pH Ur Specific [place] Urine Protein Urine Glucose (UA) Urine Ketones Urine Blood Urine Nitrate Urine Bilirubin Urine Urobilinogen Ur Leukocyte Esterase Urine RBC Urine WBC Ur Epithelial Cells Urine Bacteria Urine HCG, Qual Salicylates < 1 L Urine Opiates Screen Urine Methadone Screen Acetaminophen < 10.0 L Ur Barbiturates Screen Ur Phencyclidine Scrn Ur Amphetamines Screen U Benzodiazepines Scrn U Oth Cocaine Metabols U Cannabinoids Screen Alcohol, Quantitative < 10 12/05/16 12/05/16 12/05/16 12:33 12:30 12:30 WBC 6.3 D RBC 4.75 Hgb 14.1 Hct 41.4 MCV 87.2 MCH 29.7 MCHC 34.1 RDW 12.8 Plt Count 288 MPV 9.1 Gran % 65.2 Lymph % (Auto) 26.2 [place] % (Auto) 7.3 H Eos % (Auto) 1.1 L Baso % (Auto) 0.2 Gran # 4.14 Lymph # 1.7 [place] # 0.5 Eos # 0.1 Baso # 0.01 Sodium Potassium Chloride Carbon Dioxide Anion Gap BUN Creatinine Est GFR ( Amer) Est GFR (Non-Af Amer) Random Glucose Calcium Total Bilirubin AST ALT Alkaline Phosphatase Total Protein Albumin Globulin Albumin/Globulin Ratio Urine Color Yellow Urine Appearance Clear Urine pH 6.0 Ur Specific [place] >= 1.030 Urine Protein Trace H Urine Glucose (UA) Negative Urine Ketones 40 H Urine Blood Negative Urine Nitrate Negative Urine Bilirubin Small H Urine Urobilinogen 0.2 Ur Leukocyte Esterase Negative Urine RBC 0 - 2 Urine WBC 1 - 3 Ur Epithelial Cells 3 - 4 Urine Bacteria Small Urine HCG, Qual Negative Salicylates Urine Opiates Screen Negative Urine Methadone Screen Negative Acetaminophen Ur Barbiturates Screen Negative Ur Phencyclidine Scrn Negative Ur Amphetamines Screen Negative U Benzodiazepines Scrn Negative U Oth Cocaine Metabols Negative U Cannabinoids Screen Negative Alcohol, Quantitative Vital Signs Temp Pulse Resp BP Pulse Ox 12/07/16 06:54 98.1 F 74 20 89/54 L 12/06/16 16:27 97.6 F 60 106/57 L 12/06/16 06:41 97.3 F L 59 L 20 107/62 12/05/16 18:28 16 12/05/16 16:55 96 H 16 124/76 100 12/05/16 14:15 90 16 100/76 98 12/05/16 12:17 98.9 F 85 20 100/64 Temp Pulse Resp BP Pulse Ox 98.3 F 86 18 98/58 L 100 12/08/16 06:35 12/08/16 06:35 12/08/16 06:35 12/08/16 06:35 12/05/16 16:55 Temp Pulse Resp BP Pulse Ox 98.3 F 134 H 18 120/68 100 12/08/16 06:35 12/10/16 15:58 12/08/16 06:35 12/10/16 15:58 12/05/16 16:55 DSM 5 Symptoms Update: Shortly pt is 26yo female with long h/o schizoaffective disorder, h/o inpatient hospitalizations, most recent was [facility] (about a a month ago to this facility), came to the ED accompanied by pt's mother who is reported pt was not taking her medications, was in catatonic stage, was not talking for the past week, was disorganized in her behavior, was taking a shower with the clothes on, pt also was vomiting into the family drinking cups, pt also was not sleeping, was not functioning, needs further evaluation and stabilization, meds resumption and titration. family meeting took place yesterday with mother, please see notes for more detailed information November. This loan underwriter initiated Prozac, Ativan was increased, patient still is catatonic stage selectively mute staying in her bed most of the times sleeping, as per staff pt is irritable, at times argumentative, no physical aggression, no agitation. pt tolerated meds well, no side effects observed or reported, AIMS 0, no EPS. pt is amotivated, low profile, moving with slow motion. Impression: schizoaffective disorder, bipolar type, with catatonic symptoms. Medication Change: Yes (increased yesterday) Medical Record Reviewed: Yes Consults ordered or reviewed: medical consult appreciated Mental Status Examination - Cognitive Function Orientation: Person, Place, Situation Memory: Intact Attention: Poor Concentration: Poor Association: Loose Fund of Knowledge: Poor - Mood Mood: Depressed - Affect Affect: Flat - Formal Thought Process Formal Thought Process: Hallucinations (denied) - Suicidal Ideation Suicidal Ideation: No - Homicidal Ideation Homicidal Ideation: No Goal/Treatment Plan - Goal/Treatment Plan Need for Continued Stay: Remain at risks for inpatient hospitalization, Severe depression anxiety, Discharge may exacerbated symptoms, Severe functional impairment Progress Toward Problem(s) and Goals/Treatment Plan: milieu/structure/supportive therapy seroquel 150mg po amhs for psychosis (pt was not taking it) ativan 2mg po bid and hs for catonia will give remeron 15mg po hs for depression/insomnia prozac 20mg po daily for depression/anxiety medical consult appreciated will give PRN meds will monitor closely pharmacy was called family meeting appreciated 12/09/2016 Estimated Date of D/C: 12/13/16
--- NOTE | 2016-12-11 08:35 | PCM.PYCHPN ---
Psychiatric Progress Note - Psychiatric Progress Note Patient seen today, length of contact: 25 min Problems Identified/Issues Discussed: I reviewed recent notes and met with patient at bedside. Patient is minimally cooperative and she responds to my questioning with very brief affirmations or denials--similar to her prior admission. She still appears michel and preoccupied . Responses are relevant to questioning (though quite brief) and consistent with repeat questioning. Denies hallucinations. Patient has been taking her medications and denies any discomfort, pain or side effects. Nursing notes describe similar findings, patient has been labile and selectively mute with underlying hostility. There were no behavioral issues overnight Diagnostic Results: schizoaffective disorder, bipolar type, with catatonic symptoms. Medication Change: No ( ) Medical Record Reviewed: Yes Mental Status Examination - Cognitive Function Orientation: Person, Place, Situation Memory: Intact Attention: Poor Concentration: Poor Association: Loose Fund of Knowledge: Poor - Mood Mood: Depressed - Affect Affect: Flat - Formal Thought Process Formal Thought Process: Hallucinations (denied) - Suicidal Ideation Suicidal Ideation: No - Homicidal Ideation Homicidal Ideation: No Goal/Treatment Plan - Goal/Treatment Plan Need for Continued Stay: Remain at risks for inpatient hospitalization, Severe depression anxiety, Discharge may exacerbated symptoms, Severe functional impairment Progress Toward Problem(s) and Goals/Treatment Plan: * c/w current tx and plan * No new weekend labs thus far * Vitals reviewed and noted below: Selected Entries 12/08/16 12/09/16 12/10/16 06:35 16:30 15:58 Temperature 98.3 F Pulse Rate 86 107 H 134 H Respiratory 18 Rate Blood Pressure 98/58 L 107/74 120/68 Estimated Date of D/C: 12/13/16
--- NOTE | 2016-12-12 08:50 | PCM.PYCHPN ---
Psychiatric Progress Note - Psychiatric Progress Note Patient seen today, length of contact: 25 min Problems Identified/Issues Discussed: I reviewed recent notes and met with patient at bedside. Patient is again minimally cooperative and she responds to my questioning with very brief affirmations or denials--similar to her prior admission. She still appears michel and preoccupied. Responses are relevant to questioning (though quite brief) and consistent with repeat questioning. Denies hallucinations. Patient has been taking her medications and denies any discomfort, pain or side effects. Nursing notes describe similar findings, patient has been guarded, labile and very selective with her communication. There were no behavioral issues over the weekend thus far. Diagnostic Results: schizoaffective disorder, bipolar type, with catatonic symptoms. Medication Change: No ( ) Medical Record Reviewed: Yes Mental Status Examination - Cognitive Function Orientation: Person, Place, Situation Memory: Intact Attention: Poor Concentration: Poor Association: Loose Fund of Knowledge: Poor - Mood Mood: Depressed - Affect Affect: Flat - Formal Thought Process Formal Thought Process: Hallucinations (denied) - Suicidal Ideation Suicidal Ideation: No - Homicidal Ideation Homicidal Ideation: No Goal/Treatment Plan - Goal/Treatment Plan Need for Continued Stay: Remain at risks for inpatient hospitalization, Severe depression anxiety, Discharge may exacerbated symptoms, Severe functional impairment Progress Toward Problem(s) and Goals/Treatment Plan: * c/w current tx and plan * No new weekend labs * Vitals reviewed and noted below: Selected Entries 12/11/16 12/11/16 07:25 16:00 Temperature 98.0 F Pulse Rate 108 H 116 H Respiratory 20 Rate Blood Pressure 94/61 L 118/68 Estimated Date of D/C: 12/13/16
[2016-12-13 06:59] VITALS: RESP 20
--- NOTE | 2016-12-13 16:31 | PCM.PYCHPN ---
Psychiatric Progress Note - Psychiatric Progress Note Patient seen today, length of contact: 30min Patient Chief Complaint: "-firs I need to work on my own place, I need to live independently -I don't want to be annoyed with nothing -I want to have my own place, watch TV, listen some music -I also want to go to the park or take a walk whenever I want" Problems Identified/Issues Discussed: Suicide/ homicide prevention, past psychiatric h/o, current psychiatric symptoms , medical problems, risk/benefits and alternatives of medications, medications compliance, coping strategies, substance abuse h/o, relapse prevention, importance of follow up with psychiatrist and therapist, discharge plan. Medical Problems: pt has h/o dyslipidemia, UTIs, was seen by . Diagnostic Results: 12/05/16 12/05/16 12/05/16 12:33 12:33 12:33 WBC RBC Hgb Hct MCV MCH MCHC RDW Plt Count MPV Gran % Lymph % (Auto) [place] % (Auto) Eos % (Auto) Baso % (Auto) Gran # Lymph # [place] # Eos # Baso # Sodium 142 Potassium 4.0 Chloride 105 Carbon Dioxide 25 Anion Gap 16 BUN 9 Creatinine 0.7 Est GFR ( Amer) > 60 Est GFR (Non-Af Amer) > 60 Random Glucose 97 Calcium 9.6 Total Bilirubin 0.8 AST 22 ALT 24 Alkaline Phosphatase 114 Total Protein 7.9 Albumin 4.5 Globulin 3.4 Albumin/Globulin Ratio 1.3 Urine Color Urine Appearance Urine pH Ur Specific [place] Urine Protein Urine Glucose (UA) Urine Ketones Urine Blood Urine Nitrate Urine Bilirubin Urine Urobilinogen Ur Leukocyte Esterase Urine RBC Urine WBC Ur Epithelial Cells Urine Bacteria Urine HCG, Qual Salicylates < 1 L Urine Opiates Screen Urine Methadone Screen Acetaminophen < 10.0 L Ur Barbiturates Screen Ur Phencyclidine Scrn Ur Amphetamines Screen U Benzodiazepines Scrn U Oth Cocaine Metabols U Cannabinoids Screen Alcohol, Quantitative < 10 12/05/16 12/05/16 12/05/16 12:33 12:30 12:30 WBC 6.3 D RBC 4.75 Hgb 14.1 Hct 41.4 MCV 87.2 MCH 29.7 MCHC 34.1 RDW 12.8 Plt Count 288 MPV 9.1 Gran % 65.2 Lymph % (Auto) 26.2 [place] % (Auto) 7.3 H Eos % (Auto) 1.1 L Baso % (Auto) 0.2 Gran # 4.14 Lymph # 1.7 [place] # 0.5 Eos # 0.1 Baso # 0.01 Sodium Potassium Chloride Carbon Dioxide Anion Gap BUN Creatinine Est GFR ( Amer) Est GFR (Non-Af Amer) Random Glucose Calcium Total Bilirubin AST ALT Alkaline Phosphatase Total Protein Albumin Globulin Albumin/Globulin Ratio Urine Color Yellow Urine Appearance Clear Urine pH 6.0 Ur Specific [place] >= 1.030 Urine Protein Trace H Urine Glucose (UA) Negative Urine Ketones 40 H Urine Blood Negative Urine Nitrate Negative Urine Bilirubin Small H Urine Urobilinogen 0.2 Ur Leukocyte Esterase Negative Urine RBC 0 - 2 Urine WBC 1 - 3 Ur Epithelial Cells 3 - 4 Urine Bacteria Small Urine HCG, Qual Negative Salicylates Urine Opiates Screen Negative Urine Methadone Screen Negative Acetaminophen Ur Barbiturates Screen Negative Ur Phencyclidine Scrn Negative Ur Amphetamines Screen Negative U Benzodiazepines Scrn Negative U Oth Cocaine Metabols Negative U Cannabinoids Screen Negative Alcohol, Quantitative Vital Signs Temp Pulse Resp BP Pulse Ox 12/07/16 06:54 98.1 F 74 20 89/54 L 12/06/16 16:27 97.6 F 60 106/57 L 12/06/16 06:41 97.3 F L 59 L 20 107/62 12/05/16 18:28 16 12/05/16 16:55 96 H 16 124/76 100 12/05/16 14:15 90 16 100/76 98 12/05/16 12:17 98.9 F 85 20 100/64 Temp Pulse Resp BP Pulse Ox 98.3 F 86 18 98/58 L 100 12/08/16 06:35 12/08/16 06:35 12/08/16 06:35 12/08/16 06:35 12/05/16 16:55 Temp Pulse Resp BP Pulse Ox 98.3 F 134 H 18 120/68 100 12/08/16 06:35 12/10/16 15:58 12/08/16 06:35 12/10/16 15:58 12/05/16 16:55 DSM 5 Symptoms Update: Shortly pt is 26yo female with long h/o schizoaffective disorder, h/o inpatient hospitalizations, most recent was [facility] (about a a month ago to this facility), came to the ED accompanied by pt's mother who is reported pt was not taking her medications, was in catatonic stage, was not talking for the past week, was disorganized in her behavior, was taking a shower with the clothes on, pt also was vomiting into the family drinking cups, pt also was not sleeping, was not functioning, needs further evaluation and stabilization, meds resumption and titration. family meeting took place with mother, please see notes for more detailed information November. This tag writer initiated Prozac, Ativan was increased, catatonia improved, pt is able to talk, but still selectively mute, whenever pt talks it seems she is giving this tag writer a favor, pt denied being angry, denied thoughts of harming self or others, pt said she tolerates meds well, no side effects observed or reported, AIMS 0, no EPS. pt said that she worked on her to do list: "-firs I need to work on my own place, I need to live independently -I don't want to be annoyed with nothing -I want to have my own place, watch TV, listen some music -I also want to go to the park or take a walk whenever I want" pt tolerated meds well, no side effects observed or reported, AIMS 0, no EPS. pt requested to be d/c tomorrow, pt wants to be d/c to her boyfriend's house. Impression: schizoaffective disorder, bipolar type, with catatonic symptoms. Medication Change: Yes (prozac increased) Medical Record Reviewed: Yes Consults ordered or reviewed: medical consult appreciated Mental Status Examination - Cognitive Function Orientation: Person, Place, Situation Memory: Intact Attention: Poor (some improvement) Concentration: Poor (some improvement) Association: WNL (s) Fund of Knowledge: WNL - Mood Mood: Depressed ("I am fine...) - Affect Affect: Flat - Formal Thought Process Formal Thought Process: Hallucinations (denied) - Suicidal Ideation Suicidal Ideation: No - Homicidal Ideation Homicidal Ideation: No Goal/Treatment Plan - Goal/Treatment Plan Need for Continued Stay: Remain at risks for inpatient hospitalization, Severe depression anxiety, Discharge may exacerbated symptoms, Severe functional impairment Progress Toward Problem(s) and Goals/Treatment Plan: milieu/structure/supportive therapy seroquel 150mg po amhs for psychosis (pt was not taking it prior to this hospitalization) ativan 2mg po bid and hs for catonia will give remeron 15mg po hs for depression/insomnia prozac 30mg po daily for depression/anxiety medical consult appreciated will give PRN meds will monitor closely pharmacy was called family meeting appreciated 12/09/2016 Estimated Date of D/C: 12/14/16
[2016-12-14 07:21] VITALS: BP 99/62; PULSE 93; TEMP 97.7
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
--- NOTE | 2016-12-15 09:54 | PCM.BM ---
Treatment Plan Problems - Problems identified on initial assessmt depression Date Initiated: 12/13/16 (mood and affect is calm and improving) Time Initiated: 13:00 Date resolved: 12/13/16 Assessment reference: NA Status: Active Priority: 1 noncompliance with medications Date Initiated: 12/13/16 (complied with tx) Time Initiated: 13:00 Date resolved: 12/13/16 Assessment reference: NA Status: Active Priority: 1 Treatment assets and liabiliti Patient Assests: ADL independent, good support system Patient Liabilities: language/speech - Milieu Protocol Maintain good personal hygiene: daily Encourage regular showers, daily Remind patient to perform daily oral care, daily Assist patient to perform ADL's Maintain personal safety: daily Educate patient to report safety concerns to staff, daily Monitor environment for contraband/sharps Medication safety: Monitor for expected outcome, potential side effects: daily, Assess barriers to learning: daily, Assess readiness for medication education: daily Milieu Narrative: At the time of the discharge pt denied been depressed, denied thoughts of harming self or others, denied psychotic symptoms, and pt does not appeared to be psychotic, denied been anxious, was considered to pose no threat to self or others, will be following up at Dr.Paul Barboza, information about follow up appointment, time and address provided to the pt, it is patient responsibility to follow up with outpatient clinic, PMD as well as specialists (see SW note for more detailed information). In case pt will need to obtain results of studies pending at discharge pt was provided with contact information of Psychiatric Inpatient unit [phone] as well as Medical Record Department [phone]. Nicotine patch was offered, but pt smokes about one cigarette a day Counseling about smoking and alcohol cessation provided pt was provided with prescriptions for all of medications (please see medication reconciliation form) Pt was educated about safety plan in case of worsening of symptoms or in case of suicidal or homicidal ideation call 911 or go to the nearest ER, also was educated to take meds as prescribed and stay away from drugs, pt verbalized understanding. Family Contact Family involvement: Famliy/SO not involved Discharge/Continuing Care - Education Needs Education Needs: Family Placement options, Patient Medication, Patient Diagnosis /Disease Process, Patient Coping Skills, Patient Anger Management skills, Patient Community resources, Patient Activities of Daily Living, Patient Personal Hygiene/Grooming - Discharge Discharge Criteria: Ability to care for self - Treatment Team Participation Patient/Family/SO Statement: At the time of the discharge pt denied been depressed, denied thoughts of harming self or others, denied psychotic symptoms, and pt does not appeared to be psychotic, denied been anxious, was considered to pose no threat to self or others, will be following up at Dr.Paul Barboza, information about follow up appointment, time and address provided to the pt, it is patient responsibility to follow up with outpatient clinic, PMD as well as specialists (see SW note for more detailed information). In case pt will need to obtain results of studies pending at discharge pt was provided with contact information of Psychiatric Inpatient unit [phone] as well as Medical Record Department [phone]. Nicotine patch was offered, but pt smokes about one cigarette a day Counseling about smoking and alcohol cessation provided pt was provided with prescriptions for all of medications (please see medication reconciliation form) Pt was educated about safety plan in case of worsening of symptoms or in case of suicidal or homicidal ideation call 911 or go to the nearest ER, also was educated to take meds as prescribed and stay away from drugs, pt verbalized understanding. Treatment Plan Review - Problem depression Time Initiated: 19:15 noncompliance with medications Time Initiated: 19:16
== END 2016-12-14 11:10 | disposition home or self-care (01) | DRG 885 ==
LOC: ED 12:05 → ERH 16:42 → PSYC 17:35
PROVIDERS: ADMIT Psychiatry & Neurology Psychiatry; ATTEND Psychiatry & Neurology Psychiatry
PROC: GZ3ZZZZ Medication Management (ICD-10-PCS; principal; 2016-12-06)
DX: F25.0 Schizoaffective disorder, bipolar type (principal); F06.1 Catatonic disorder due to known physiological condition; F43.10 Post-traumatic stress disorder, unspecified; F41.0 Panic disorder [episodic paroxysmal anxiety]; F94.0 Selective mutism; G47.00 Insomnia, unspecified; E78.5 Hyperlipidemia, unspecified; N83.201 Unspecified ovarian cyst, right side; Z91.14 Patient's other noncompliance with medication regimen; Z91.19 Patient's noncompliance with other medical treatment and regimen; Z87.442 Personal history of urinary calculi; Z90.710 Acquired absence of both cervix and uterus; Z87.891 Personal history of nicotine dependence

== ENCOUNTER 2017-01-02 09:29 | Inpatient (IN) | payer OTHER ==
[2017-01-02 09:29] VITALS: BMI 29.5
[2017-01-02] MEDS ORDERED: Sodium Chloride 0.9% 1,000 ML IV STA (09:58)
[2017-01-02 10:17] LABS: BASO # 0.01 K/mm3 (0.0-2.0); BASO % 0.2 % (0.0-3.0); EOS # 0.2 (0.0-0.7); EOS % 3.7 % (1.5-5.0); GRAN # 3.78 (1.4-6.5); GRAN % 60.5 % (50.0-68.0); HEMATOCRIT 40.4 % (36.0-48.0); LYMPH # 1.7 (1.2-3.4); LYMPH % 27.9 % (22.0-35.0); MEAN CELL VOLUME 87.8 fl (80.0-105.0); MEAN CORPUSCULAR HEMOGLOBIN 29.8 pg (25.0-35.0); MEAN CORPUSCULAR HGB CONC 33.9 g/dl (31.0-37.0); MEAN PLATELET VOLUME 8.8 fl (7.0-11.0); MONO # 0.5 (0.1-0.6); MONO % 7.7 % (1.0-6.0); WHITE BLOOD COUNT 6.2 10^3/ul (4.5-11.0)
[2017-01-02 10:29] LABS: ALB/GLOB RATIO 1.4 (1.1-1.8); ALKALINE PHOSPHATASE 102 U/L (38-126); ALT/SGPT 25 U/L (7-56); AST/SGOT 24 U/L (14-36); BILIRUBIN,TOTAL 0.8 mg/dL (0.2-1.3); BLOOD UREA NITROGEN 10 mg/dL (7-21); CALCIUM 9.9 mg/dL (8.4-10.5); CARBON DIOXIDE 27 mmol/L (21-33); CHLORIDE 103 mmol/L (98-107); GFR AFRICAN-AMERICAN > 60; GLUCOSE,RANDOM 84 mg/dL (70-110); LIPASE 49 U/L (23-300); POTASSIUM 4.2 mmol/L (3.6-5.0); SODIUM 140 mmol/L (132-148); TOTAL PROTEIN 7.8 g/dL (5.8-8.3)
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
[2017-01-02] MEDS ORDERED: Levalbuterol 0.63 MG/3 ML Inhal Soln UD IH STA (10:52)
--- NOTE | 2017-01-02 11:23 | RAD ---
HISTORY: cough COMPARISON: 12/05/2016. FINDINGS: LUNGS: There is patient rotation to the left. The lungs are clear. PLEURA: No significant pleural effusion identified, no pneumothorax apparent. CARDIOVASCULAR: Normal. OSSEOUS STRUCTURES: No significant abnormalities. VISUALIZED UPPER ABDOMEN: Normal. OTHER FINDINGS: None. IMPRESSION: No acute findings.
[2017-01-02 11:45] LABS: PH,URINE 6.5 (4.7-8.0); URINE APPEARANCE CLEAR (CLEAR); URINE BILIRUBIN NEGATIVE (NEGATIVE); URINE BLOOD NEGATIVE (NEGATIVE); URINE COLOR YELLOW (YELLOW); URINE GLUCOSE (UA) NEGATIVE (NEGATIVE); URINE KETONE NEGATIVE (NEGATIVE); URINE LEUKOCYTE ESTERASE TRACE Leu/uL (NEGATIVE); URINE PROTEIN NEGATIVE mg/dL (<30 mg/dL); URINE UROBILINOGEN 0.2 E.U./dL (<1 E.U./dL)
[2017-01-02 11:57] LABS: URINE RBC 0 - 2 /hpf (0-2); URINE WBC 0 - 2 /hpf (0-6)
[2017-01-02 11:58] LABS: URINE BACTERIA SMALL (NEG)
[2017-01-03] MEDS ORDERED: Alum-Mag Hydrox-Simethicone Susp (30 mL) PO PRN (05:43)
[2017-01-03] MEDS ORDERED: Magnesium Hydroxide Susp 30 ml UD PO PRN (05:43)
--- NOTE | 2017-01-03 06:35 | PCM.BM ---
<Kirstin Shelton - Last Filed: 01/03/17 06:33> Treatment Plan Problems - Problems identified on initial assessmt medication nonadherence Date Initiated: 01/03/17 Time Initiated: 05:00 Assessment reference: NA Status: Active Priority: 1 Treatment assets and liabiliti Patient Assests: ADL independent, cognitively intact Patient Liabilities: substance abuse - Milieu Protocol Maintain good personal hygiene: daily Encourage regular showers, daily Remind patient to perform daily oral care, daily Assist patient to perform ADL's Conduct patient checks and document Observation sheet: Q15 minutes Maintain personal safety: every shift Educate patient to report safety concerns to staff, every shift Monitor environment for contraband/sharps Medication safety: Monitor for expected outcome, potential side effects: every shift, Assess barriers to learning: every shift, Assess readiness for medication education: every shift Discharge/Continuing Care - Education Needs Education Needs: Patient Medication, Patient Coping Skills, Patient Anger Management skills - Discharge Discharge Criteria: Tolerates medication w/o severe side effects, Free of agitation <Dilip Galvin - Last Filed: 01/03/17 11:44> Treatment Plan Problems - Problems identified on initial assessmt medication nonadherence Priority: 4 Agitated Behavior Date Initiated: 01/03/17 Time Initiated: 11:48 Assessment reference: NA Status: Active Priority: 1 Depression Date Initiated: 01/03/17 Time Initiated: 11:50 Assessment reference: NA Status: Active Priority: 2 Anxiety Date Initiated: 01/03/17 Time Initiated: 11:50 Assessment reference: NA Status: Active Priority: 3 <Carline Vergara - Last Filed: 01/03/17 14:21> - Diagnosis (1) Schizoaffective disorder Status: Chronic Interventions: 01/03/17 14:22 Psychoeducation/psychotherapy Psychopharmacology/adjustment of medications as needed/ monitoring possible side effects Evaluate pt on daily basis Compliance with medications and follow up appointments Long acting medication if pt is noncompliant with pill form Suicide and homicide risk assessment and prevention, coping strategies, safety plan Relapse prevention Reduction of symptoms Improve functional status Possible assertive community treatment Cognitive behavioral therapy Family involvement Possible social skill training as outpatient (2) VANESSA (generalized anxiety disorder) Status: Acute Interventions: 01/03/17 14:22 Psychoeducation Psychopharmacology/adjustment of medications as needed/ monitoring possible side effects Evaluate pt on daily basis Compliance with medications and follow up appointments Suicide and homicide risk assessment and prevention, coping strategies, safety plan Reduction of symptoms Relaxation techniques and breathing exercises Improve functional status Family involvement As outpatient: cognitive behavioral therapy (3) PTSD (post-traumatic stress disorder) Status: Acute Interventions: 01/03/17 14:23 Psychoeducation Psychopharmacology/adjustment of medications as needed/ monitoring possible side effects Evaluate pt on daily basis Compliance with medications and follow up appointments Suicide and homicide risk assessment and prevention, coping strategies, safety plan Reduction of symptoms Relaxation techniques and breathing exercises Improve functional status Family involvement As outpatient: cognitive behavioral therapy (4) Borderline personality disorder Status: Acute Interventions: 01/03/17 14:23 Psychoeducation Psychopharmacology/adjustment of medications as needed/ monitoring possible side effects Evaluate pt on daily basis Compliance with medications and follow up appointments Suicide and homicide risk assessment and prevention, coping strategies, safety plan Relapse prevention Family involvement As outpatient: Transference-focused psychotherapy/dialectical behavioral therapy /schema therapy Mindfulness skills <Margie Pinon - Last Filed: 01/03/17 16:18>
[2017-01-03 08:12] LABS: CHOLESTEROL 181 mg/dL (130-200); GLUCOSE,FASTING 87 mg/dL (65-110)
--- NOTE | 2017-01-03 09:32 | CP.PCM.CON ---
History of Present Illness - History of Present Illness History of Present Illness: 26 yo female h/o schizoaffective ds, seen in ED this am for upper resp sx, apparently became agitated and combative, now admitted to psych unit. Pt sedated at present, arousable, c/o sore throat and cough x 2-3 days, occ whezzing, no fever/coills Review of Systems - Constitutional Constitutional: Malaise - EENT Nose/Mouth/Throat: Nasal Congestion, Sore Throat - Respiratory Respiratory: Cough, Wheezing - Gastrointestinal Gastrointestinal: Nausea, Vomiting - Psychiatric Psychiatric: Irritability, Mood Swings Past Patient History - Infectious Disease Hx of Infectious Diseases: None - Tetanus Immunizations Tetanus Immunization: Unknown - Past Social History Smoking Status: Former Smoker - CARDIAC Hx Cardiac Disorders: Yes Hx Pacemaker: No - PULMONARY Hx Respiratory Disorders: No Hx Asthma: Yes - NEUROLOGICAL Hx Neurological Disorder: No Hx Paralysis: No - HEENT Hx HEENT Problems: No - RENAL Hx Chronic Kidney Disease: No Hx Kidney Stones: Yes Other/Comment: Patients mute - ENDOCRINE/METABOLIC Hx Endocrine Disorders: No Other/Comment: Patients selectively mute - HEMATOLOGICAL/ONCOLOGICAL Hx Blood Disorders: Yes Hx Blood Transfusions: Yes Hx Blood Transfusion Reaction: No Other/Comment: Patients selectively mute - INTEGUMENTARY Hx Dermatological Problems: No Other/Comment: Patients selectively mute - MUSCULOSKELETAL/RHEUMATOLOGICAL Hx Musculoskeletal Disorders: No Other/Comment: Patients selectively mute - GASTROINTESTINAL Hx Gastrointestinal Disorders: No Other/Comment: Patients selectively mute - GENITOURINARY/GYNECOLOGICAL Hx Genitourinary Disorders: Yes Hx Sexually Transmitted Disorders: Yes Other/Comment: cyst on overy - PSYCHIATRIC Hx Substance Use: Yes - SURGICAL HISTORY Hx Hysterectomy: Yes - ANESTHESIA Hx Anesthesia: Yes Hx Anesthesia Reactions: No Hx Malignant Hyperthermia: No Meds Allergies/Adverse Reactions: Allergies Allergy/AdvReac Type Severity Reaction Status Date / Time ziprasidone [From Geodon] AdvReac Elevated Verified 01/02/17 09:31 LFT's - Medications Medications: Current Medications Acetaminophen (Tylenol 325mg Tab) 650 mg PO Q4 PRN PRN Reason: Pain, moderate (4-7) Al Hydrox/Mg Hydrox/Simethicone (Maalox Plus 30 Ml) 30 ml PO DAILY PRN PRN Reason: Upset Stomach Magnesium Hydroxide (Milk Of Magnesia) 30 ml PO DAILY PRN PRN Reason: Constipation Physical Exam - Constitutional Appears: Non-toxic - Head Exam Head Exam: ATRAUMATIC, NORMOCEPHALIC - Eye Exam Eye Exam: EOMI, PERRL - ENT Exam Additional comments: mild coryza - Respiratory Exam Respiratory Exam: Clear to Auscultation Bilateral - Cardiovascular Exam Cardiovascular Exam: REGULAR RHYTHM - GI/Abdominal Exam GI & Abdominal Exam: Normal Bowel Sounds, Soft - Extremities Exam Extremities exam: Positive for: normal inspection - Neurological Exam Neurological exam: Alert - Psychiatric Exam Psychiatric exam: Depressed, Flat Affect - Skin Skin Exam: Dry, Warm Results - Vital Signs Recent Vital Signs: Last Vital Signs Temp 98.6 F 01/03/17 05:00 Pulse 82 01/03/17 05:00 Resp 20 01/03/17 05:00 BP 109/59 L 01/03/17 05:00 Pulse Ox 97 01/03/17 05:00 - Labs Result Diagrams: 01/02/17 10:13 01/02/17 10:13 Labs: Laboratory Results - last 24 hr 01/03/17 01/03/17 07:48 07:48 Fasting Glucose 87 Triglycerides 107 Cholesterol 181 LDL Cholesterol Direct 94 HDL Cholesterol 59 TSH 3rd Generation 1.91 Assessment & Plan (1) Pharyngitis Status: Acute (2) Asthma Status: Chronic (3) Nephrolithiasis Status: Inactive (4) Schizoaffective disorder Status: Chronic - Assessment and Plan (Free Text) Plan: zithromax 250mg qd, psych f/u - Date & Time Date: 01/03/17 Time: 09:00
--- NOTE | 2017-01-03 13:25 | CARD ---
APPROVED REPORT EKG Measurement Heart [id number] <Conclusion> Normal sinus rhythm Mildly prolonged QTc
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
--- NOTE | 2017-01-04 09:28 | CP.PCM.PN ---
Subjective - Date & Time of Evaluation Date of Evaluation: 01/04/17 Time of Evaluation: 09:15 - Subjective Subjective: c/o mild resp congestion, no cough, no SOB Objective - Vital Signs/Intake and Output Vital Signs (last 24 hours): Temp Pulse Resp BP Pulse Ox 98.6 F 90 20 120/80 97 01/03/17 05:00 01/03/17 16:24 01/03/17 05:00 01/03/17 16:24 01/03/17 05:00 - Medications Medications: Current Medications Acetaminophen (Tylenol 325mg Tab) 650 mg PO Q4 PRN PRN Reason: Pain, moderate (4-7) Al Hydrox/Mg Hydrox/Simethicone (Maalox Plus 30 Ml) 30 ml PO DAILY PRN PRN Reason: Upset Stomach Azithromycin (Zithromax) 250 mg PO DAILY [facility] PRN Reason: Protocol Last Admin: 01/04/17 08:50 Dose: 250 mg Fluoxetine HCl (Prozac) 30 mg PO DAILY [facility] Last Admin: 01/04/17 08:50 Dose: 30 mg Lorazepam (Ativan) 1 mg PO TID [facility] PRN Reason: Protocol Last Admin: 01/04/17 08:50 Dose: 1 mg Magnesium Hydroxide (Milk Of Magnesia) 30 ml PO DAILY PRN PRN Reason: Constipation Mirtazapine (Remeron) 15 mg PO HS [facility] Last Admin: 01/03/17 21:28 Dose: 15 mg Montelukast Sodium (Singulair) 10 mg PO HS [facility] Quetiapine Fumarate (Seroquel) 150 mg PO AMHS [facility] PRN Reason: Protocol Last Admin: 01/03/17 21:28 Dose: 150 mg - Constitutional Appears: No Acute Distress - Head Exam Head Exam: ATRAUMATIC, NORMOCEPHALIC - ENT Exam ENT Exam: Mucous Membranes Moist - Respiratory Exam Respiratory Exam: Clear to Ausculation Bilateral, NORMAL BREATHING PATTERN - Cardiovascular Exam Cardiovascular Exam: REGULAR RHYTHM - GI/Abdominal Exam GI & Abdominal Exam: Soft, Normal Bowel Sounds - Extremities Exam Extremities Exam: Normal Inspection - Neurological Exam Neurological Exam: Alert, Awake - Psychiatric Exam Psychiatric exam: Flat Affect - Skin Skin Exam: Dry, Warm Assessment and Plan (1) Pharyngitis Status: Acute (2) Asthma Status: Chronic (3) Nephrolithiasis Status: Inactive (4) Schizoaffective disorder Status: Chronic - Assessment and Plan (Free Text) Plan: add singulaire 10mg qd, continue psych f/u
--- NOTE | 2017-01-04 15:00 | PCM.PYCHPN ---
Psychiatric Progress Note - Psychiatric Progress Note Patient seen today, length of contact: 30min Patient Chief Complaint: "....." Medical Problems: see medical team notes for more detailed info Diagnostic Results: 01/02/17 10:13 01/02/17 10:13 Lab Results 01/03/17 07:48: RPR Nonreactive 01/03/17 07:48: TSH 3rd Generation 1.91 01/03/17 07:48: Fasting Glucose 87, Triglycerides 107, Cholesterol 181, LDL Cholesterol Direct 94, HDL Cholesterol 59 01/02/17 11:37: Urine Opiates Screen Negative, Urine Methadone Screen Negative, Ur Barbiturates Screen Negative, Ur Phencyclidine Scrn Negative, Ur Amphetamines Screen Negative, U Benzodiazepines Scrn Negative, U Oth Cocaine Metabols Negative, U Cannabinoids Screen Negative 01/02/17 11:37: Urine Color Yellow, Urine Appearance Clear, Urine pH 6.5, Ur Specific [place] <= 1.005, Urine Protein Negative, Urine Glucose (UA) Negative, Urine Ketones Negative, Urine Blood Negative, Urine Nitrate Negative, Urine Bilirubin Negative, Urine Urobilinogen 0.2, Ur Leukocyte Esterase Trace H, Urine RBC 0 - 2, Urine WBC 0 - 2, Ur Epithelial Cells 4 - 5, Urine Bacteria Small 01/02/17 10:36: Alcohol, Quantitative < 10 01/02/17 10:36: Salicylates < 1 L, Acetaminophen < 10.0 L 01/02/17 10:13: WBC 6.2, RBC 4.60, Hgb 13.7, Hct 40.4, MCV 87.8, MCH 29.8, MCHC 33.9, RDW 13.0, Plt Count 259, MPV 8.8, Gran % 60.5, Lymph % (Auto) 27.9, [place] % (Auto) 7.7 H, Eos % (Auto) 3.7, Baso % (Auto) 0.2, Gran # 3.78, Lymph # 1.7, [place] # 0.5, Eos # 0.2, Baso # 0.01 01/02/17 10:13: Sodium 140, Potassium 4.2, Chloride 103, Carbon Dioxide 27, Anion Gap 14, BUN 10, Creatinine 0.8, Est GFR ( Amer) > 60, Est GFR (Non- Af Amer) > 60, Random Glucose 84, Calcium 9.9, Total Bilirubin 0.8, AST 24, ALT 25, Alkaline Phosphatase 102, Total Protein 7.8, Albumin 4.5, Globulin 3.3, Albumin/Globulin Ratio 1.4, Lipase 49 Vital Signs Temp Pulse Resp BP Pulse Ox 01/03/17 16:24 90 120/80 01/03/17 05:00 98.6 F 82 20 109/59 L 97 01/03/17 03:12 98 F 72 16 114/70 100 01/02/17 22:27 97.9 F 70 17 120/77 100 01/02/17 14:06 72 16 104/62 99 01/02/17 09:37 97.4 F L 69 17 109/74 95 DSM 5 Symptoms Update: Shortly pt is 26yo female with long h/o schizoaffective disorder, h/o inpatient hospitalizations, most recent was [facility] (less than a month ago to this facility), came to the ED accompanied by pt's mother for evaluation of vomiting, nausea, during the assessment pt presented to be bizarre, was selective with tests which she wanted to have, pt became agitated, was verbalizing thoughts of harming self, was threatening staff in the ED, pt was in danger to self and others needed to be medicated and was in 4pont restraints, pt refused to sing into the psych unit, [facility] was called pt was found to be non committable, eventually pt signed consent for tx. pt submitted 48hr notice, refused to stay in the hospital. pt became mute yesterday, refused to talk, communicate with gesticulation. pt was seen in her room, no option to have a meaningful conversation, pt laying down with her eyes closed. acceptable personal hygiene, good ADLs. pt is well known to this unit from the multiple psych admissions, pt has chronic noncompliance with meds. as per collaterals from pt's mother in ED pt was not feeling good, was vomiting that is why pt was not taking her meds. pt has h/o catatonic behavior. MSE: in ED pt was agitated, needed to be in restraints Pt deemed to be unreliable historian, irritable, angry, guarded, pt looks stated age, poor personal hygiene, good ADLs, there is some psychomotor retardation, speech: pt was mute today, eye contact: no eye contact, mood described: "....." , affect: angry, irritable, thought process: unable to assess, thought content: unable to assess, poor insight/judgement, impulses are unpredictable. Impression: schizoaffective disorder h/o catatonia PTSD as per h/o VANESSA as per h/o panic disorder as per h/o r/o antisocial as per h/o r/o borderline personality d/o Treatment plan: Milieu/structure/supportive therapy Medical consult appreciated, see medical team note for more detailed info SW consultation for discharge plan and social issues Med management resumed meds seroquel 150mg po am and hs for psychosis prozac 30mg po daily for depression and anxiety remeron 15mg po hs for depression and insomnia pt submitted 48hr notice, will call [facility] Family involvement Follow up on labs Will monitor closely Pt was educated about risk/benefits and alternatives of medications, coping strategies (safety plan, suicide prevention), relapse prevention, importance of follow up with psychiatrist and therapist, stay away from drugs/alcohol/smoking Medication Change: Yes (resumed) Medical Record Reviewed: Yes Consults ordered or reviewed: PMD consult appreciated Goal/Treatment Plan - Goal/Treatment Plan Need for Continued Stay: Remain at risks for inpatient hospitalization, Severe depression anxiety, Discharge may exacerbated symptoms, Severe functional impairment Estimated Date of D/C: 01/07/17
[2017-01-04 16:40] VITALS: O2SAT 100
[2017-01-05 07:15] VITALS: BP 97/63; PULSE 80; RESP 16; TEMP 97.7
--- NOTE | 2017-01-05 13:26 | CP.PCM.PN ---
Subjective - Date & Time of Evaluation Date of Evaluation: 01/05/17 Time of Evaluation: 09:00 - Subjective Subjective: NAD, no wheezing, no SOB Objective - Vital Signs/Intake and Output Vital Signs (last 24 hours): Temp Pulse Resp BP Pulse Ox 97.7 F 80 16 97/63 L 100 01/05/17 07:14 01/05/17 07:14 01/05/17 07:14 01/05/17 07:14 01/04/17 15:00 - Respiratory Exam Respiratory Exam: Clear to Ausculation Bilateral, NORMAL BREATHING PATTERN - Cardiovascular Exam Cardiovascular Exam: REGULAR RHYTHM - GI/Abdominal Exam GI & Abdominal Exam: Soft, Normal Bowel Sounds - Extremities Exam Extremities Exam: Normal Inspection - Neurological Exam Neurological Exam: Alert, Awake Neuro motor strength exam: Left Upper Extremity: 5 - Skin Skin Exam: Dry, Warm Assessment and Plan (1) Pharyngitis Status: Acute (2) Asthma Status: Chronic (3) Schizoaffective disorder Status: Chronic - Assessment and Plan (Free Text) Plan: medically stable for DC
--- NOTE | 2017-01-05 15:06 | PCM.PYCHDC ---
Mental Status Examination - Mental Status Examination Orientation: Person, Place Memory: Intact Mood: Other ("so-so") Affect: Flat Speech: Appropriate (pt does not talk, selectively mute) Attention: Poor Concentration: Poor Association: WNL Fund of Knowledge: WNL Formal Thought Process: No Impairment Description of patient's judgement and insight: limited insight Psychotic Thoughts and Behaviors: pt denied v/a/t hallucinations pt does not appear to be psychotic. pt is selectively mute Suicidal Ideation: No Current Homicidal Ideation?: No Plan: pt does not have h/o suicidal attempts pt denied thoughts of harming self or others pt does not present to be suicidal/agitated or in any distress Discharge Summary - Discharge Note Reason for Hospitalization: pt was admitted for evaluation of disorganized and psychotic behavior, pt was agitated in the ED, needed to be in restraints. Psychiatric History (includes Medical, Family, Personal Hx): multiple psychiatric admissions. Laboratory Data: 01/02/17 10:13 01/02/17 10:13 Lab Results 01/03/17 07:48: RPR Nonreactive 01/03/17 07:48: TSH 3rd Generation 1.91 01/03/17 07:48: Fasting Glucose 87, Triglycerides 107, Cholesterol 181, LDL Cholesterol Direct 94, HDL Cholesterol 59 01/02/17 11:37: Urine Opiates Screen Negative, Urine Methadone Screen Negative, Ur Barbiturates Screen Negative, Ur Phencyclidine Scrn Negative, Ur Amphetamines Screen Negative, U Benzodiazepines Scrn Negative, U Oth Cocaine Metabols Negative, U Cannabinoids Screen Negative 01/02/17 11:37: Urine Color Yellow, Urine Appearance Clear, Urine pH 6.5, Ur Specific Sheridan <= 1.005, Urine Protein Negative, Urine Glucose (UA) Negative, Urine Ketones Negative, Urine Blood Negative, Urine Nitrate Negative, Urine Bilirubin Negative, Urine Urobilinogen 0.2, Ur Leukocyte Esterase Trace H, Urine RBC 0 - 2, Urine WBC 0 - 2, Ur Epithelial Cells 4 - 5, Urine Bacteria Small 01/02/17 10:36: Alcohol, Quantitative < 10 01/02/17 10:36: Salicylates < 1 L, Acetaminophen < 10.0 L 01/02/17 10:13: WBC 6.2, RBC 4.60, Hgb 13.7, Hct 40.4, MCV 87.8, MCH 29.8, MCHC 33.9, RDW 13.0, Plt Count 259, MPV 8.8, Gran % 60.5, Lymph % (Auto) 27.9, Lyman % (Auto) 7.7 H, Eos % (Auto) 3.7, Baso % (Auto) 0.2, Gran # 3.78, Lymph # 1.7, Lyman # 0.5, Eos # 0.2, Baso # 0.01 01/02/17 10:13: Sodium 140, Potassium 4.2, Chloride 103, Carbon Dioxide 27, Anion Gap 14, BUN 10, Creatinine 0.8, Est GFR ( Amer) > 60, Est GFR (Non- Af Amer) > 60, Random Glucose 84, Calcium 9.9, Total Bilirubin 0.8, AST 24, ALT 25, Alkaline Phosphatase 102, Total Protein 7.8, Albumin 4.5, Globulin 3.3, Albumin/Globulin Ratio 1.4, Lipase 49 Vital Signs Temp Pulse Resp BP Pulse Ox 01/05/17 07:14 97.7 F 80 16 97/63 L 01/04/17 15:00 92 H 14 87/54 L 100 01/03/17 16:24 90 120/80 01/03/17 05:00 98.6 F 82 20 109/59 L 97 01/03/17 03:12 98 F 72 16 114/70 100 01/02/17 22:27 97.9 F 70 17 120/77 100 01/02/17 14:06 72 16 104/62 99 01/02/17 09:37 97.4 F L 69 17 109/74 95 Consultations:: List each consultation separately and include: 1. Reason for request. 2. Findings. 3. Follow-up Consultations: PMD consult appreciated see notes for more detailed information Summary of Hospital Course include:: 1. Description of specific treatment plan utilized for patients during their course of treatmen. 2. Summarize the time- course for resolution of acute symptoms and/or regressed behaviors. 3. Describe issues identified and worked on during hospitalization. 4. Describe medication utilized. 5. Describe medical problems identified and treated. 6. Reassessment of suicide risk Summary of Hospital Course: Shortly pt is 26yo female with long h/o schizoaffective disorder, h/o inpatient hospitalizations, most recent was [facility] (less than a month ago to this facility), came to the ED accompanied by pt's mother for evaluation of vomiting, nausea, during the assessment pt presented to be bizarre, was selective with tests which she wanted to have, pt became agitated, was verbalizing thoughts of harming self, was threatening staff in the ED, pt was in danger to self and others needed to be medicated and was in 4pont restraints, pt refused to sing into the psych unit, [facility] was called pt was found to be non committable, eventually pt signed consent for tx. Due to the severity of patients symptoms and aggressive/disorganized behavior, pt could not be maintained as outpatient setting, pt was not taking her meds and did not follow with outpatient psychiatrist, pt needed further evaluation and stabilization in acute psychiatric unit. initially pt was seen at the treatment team meeting, pt presented to be irritable, angry, flat affect, tearful, pt said that she does not want to stay in the hospital, was giving this job specification writer an attitude, behaving herself like she is giving treatment team a favor of talking to them, acceptable personal hygiene , good ADLs. pt is well known to this unit from the multiple psych admissions, pt has chronic noncompliance with meds. as per collaterals from pt's mother in ED pt was not feeling good, was vomiting that is why pt was not taking her meds, but as per pt "I always take my meds", at the same time pt does not remember the name of meds or doses, so compliance is very questionable. pt has h/o catatonic behavior, but not during first admission day, pt became selectively mute, was not communicating with staff, was staying in bed, sleeping most of the times, at the same time eats 100% of her meals, compliant with medications. no physical aggression. pt submitted 48hr notice, requesting to be discharged, pt was screened by [facility] for involuntary commitment, was found to be NOT committable, pt was offered to rescind the 48hr notice, pt declined, wants to leave. pt did not have any aggressive or agitated behavior. 01/02/17 10:13 01/02/17 10:13 Lab Results 01/03/17 07:48: TSH 3rd Generation 1.91 01/03/17 07:48: Fasting Glucose 87, Triglycerides 107, Cholesterol 181, LDL Cholesterol Direct 94, HDL Cholesterol 59 01/02/17 11:37: Urine Opiates Screen Negative, Urine Methadone Screen Negative, Ur Barbiturates Screen Negative, Ur Phencyclidine Scrn Negative, Ur Amphetamines Screen Negative, U Benzodiazepines Scrn Negative, U Oth Cocaine Metabols Negative, U Cannabinoids Screen Negative 01/02/17 11:37: Urine Color Yellow, Urine Appearance Clear, Urine pH 6.5, Ur Specific Sheridan <= 1.005, Urine Protein Negative, Urine Glucose (UA) Negative, Urine Ketones Negative, Urine Blood Negative, Urine Nitrate Negative, Urine Bilirubin Negative, Urine Urobilinogen 0.2, Ur Leukocyte Esterase Trace H, Urine RBC 0 - 2, Urine WBC 0 - 2, Ur Epithelial Cells 4 - 5, Urine Bacteria Small 01/02/17 10:36: Alcohol, Quantitative < 10 01/02/17 10:36: Salicylates < 1 L, Acetaminophen < 10.0 L 01/02/17 10:13: WBC 6.2, RBC 4.60, Hgb 13.7, Hct 40.4, MCV 87.8, MCH 29.8, MCHC 33.9, RDW 13.0, Plt Count 259, MPV 8.8, Gran % 60.5, Lymph % (Auto) 27.9, Lyman % (Auto) 7.7 H, Eos % (Auto) 3.7, Baso % (Auto) 0.2, Gran # 3.78, Lymph # 1.7, Lyman # 0.5, Eos # 0.2, Baso # 0.01 01/02/17 10:13: Sodium 140, Potassium 4.2, Chloride 103, Carbon Dioxide 27, Anion Gap 14, BUN 10, Creatinine 0.8, Est GFR ( Amer) > 60, Est GFR (Non- Af Amer) > 60, Random Glucose 84, Calcium 9.9, Total Bilirubin 0.8, AST 24, ALT 25, Alkaline Phosphatase 102, Total Protein 7.8, Albumin 4.5, Globulin 3.3, Albumin/Globulin Ratio 1.4, Lipase 49 Vital signs: Temp Pulse Resp BP Pulse Ox 98.6 F 82 20 109/59 L 97 01/03/17 05:00 01/03/17 05:00 01/03/17 05:00 01/03/17 05:00 01/03/17 05:00 pt refused to rescind 48 hr notice will be d/c AMA At the time of the discharge pt denied thoughts of harming self or others, most likely pt has borderline personality, information about follow up appointment, time and address provided to the pt, it is patient responsibility to follow up with outpatient clinic pt wanted to be f/u with [facility] as well as specialists (see SW note for more detailed information). In case pt will need to obtain results of studies pending at discharge pt was provided with contact information of Psychiatric Inpatient unit [phone] as well as Medical Record Department [phone]. no prescriptions provided Pt was educated about safety plan in case of worsening of symptoms or in case of suicidal or homicidal ideation call 911 or go to the nearest ER, also was educated to take meds as prescribed and stay away from drugs, pt verbalized understanding. - Diagnosis (1) Schizoaffective disorder Status: Chronic Priority: Medium (2) VANESSA (generalized anxiety disorder) Status: Chronic Priority: Low (3) PTSD (post-traumatic stress disorder) Status: Chronic Priority: Low (4) Borderline personality disorder Status: Chronic Priority: High - Final Diagnosis (DSM 5) Condition upon Discharge: STABLE Disposition: AGAINST MEDICAL ADVICE Follow-up Treatment Plan: At the time of the discharge pt denied thoughts of harming self or others, most likely pt has borderline personality, information about follow up appointment, time and address provided to the pt, it is patient responsibility to follow up with outpatient clinic pt wanted to be f/u with [facility] as well as specialists (see SW note for more detailed information). In case pt will need to obtain results of studies pending at discharge pt was provided with contact information of Psychiatric Inpatient unit [phone] as well as Medical Record Department [phone]. no prescriptions provided Pt was educated about safety plan in case of worsening of symptoms or in case of suicidal or homicidal ideation call 911 or go to the nearest ER, also was educated to take meds as prescribed and stay away from drugs, pt verbalized understanding. - Smoking Cessation Smoking Cessation Medication prescribed: No - Antipsychotic Medications Pt discharged on 2 or more routine antipsychotic medications: No
== END 2017-01-05 11:10 | disposition left against medical advice (07) | DRG 885 ==
LOC: ED 09:29 → ERH 01-03 04:20 → PSYC 01-03 05:08
PROVIDERS: ADMIT Psychiatry & Neurology Psychiatry; ATTEND Psychiatry & Neurology Psychiatry
DX: F25.9 Schizoaffective disorder, unspecified (principal); R47.01 Aphasia; F32.89 Other specified depressive episodes; E78.5 Hyperlipidemia, unspecified; F41.1 Generalized anxiety disorder; F43.10 Post-traumatic stress disorder, unspecified; F60.3 Borderline personality disorder; F41.0 Panic disorder [episodic paroxysmal anxiety]; G47.00 Insomnia, unspecified; J45.909 Unspecified asthma, uncomplicated; Z87.442 Personal history of urinary calculi; Z78.1 Physical restraint status; Z79.899 Other long term (current) drug therapy; Z87.891 Personal history of nicotine dependence; Z90.710 Acquired absence of both cervix and uterus; Z91.14 Patient's other noncompliance with medication regimen; Z91.19 Patient's noncompliance with other medical treatment and regimen; J02.9 Acute pharyngitis, unspecified

== ENCOUNTER 2017-02-02 15:51 | Emergency (ER) | payer OTHER ==
[2017-02-02 15:59] VITALS: BMI 32.1
[2017-02-02 16:03] VITALS: BP 106/67; PULSE 90; RESP 17; TEMP 98.7; O2SAT 97
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
== END 2017-02-02 16:25 | disposition left against medical advice (07) ==
LOC: ED 15:51
DX: R10.9 Unspecified abdominal pain (principal); Z87.891 Personal history of nicotine dependence

== ENCOUNTER 2017-02-04 16:17 | Emergency (ER) | payer OTHER ==
[2017-02-04 16:27] VITALS: RESP 18; TEMP 98.1; O2SAT 99; BMI 30.7
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
[2017-02-04] MEDS ORDERED: Sodium Chloride 0.9% 500 ML IV STA (17:24)
[2017-02-04] MEDS ORDERED: Iohexol 350 MG/100 ML VIAL ONE (17:45)
[2017-02-04 17:59] LABS: BASO # 0.01 K/mm3 (0.0-2.0); BASO % 0.1 % (0.0-3.0); EOS # 0.2 (0.0-0.7); EOS % 2.6 % (1.5-5.0); GRAN # 5.17 (1.4-6.5); GRAN % 64.1 % (50.0-68.0); HEMATOCRIT 41.2 % (36.0-48.0); LYMPH # 2.1 (1.2-3.4); LYMPH % 26.6 % (22.0-35.0); MEAN CELL VOLUME 88.8 fl (80.0-105.0); MEAN CORPUSCULAR HEMOGLOBIN 29.7 pg (25.0-35.0); MEAN CORPUSCULAR HGB CONC 33.5 g/dl (31.0-37.0); MEAN PLATELET VOLUME 8.8 fl (7.0-11.0); MONO # 0.5 (0.1-0.6); MONO % 6.6 % (1.0-6.0); WHITE BLOOD COUNT 8.1 10^3/ul (4.5-11.0)
[2017-02-04 18:00] LABS: URINE BILIRUBIN SMALL (NEGATIVE); URINE BLOOD TRACE-INTACT (NEGATIVE); URINE GLUCOSE (UA) NEGATIVE (NEGATIVE); URINE KETONE 40 mg/dL (NEGATIVE); URINE LEUKOCYTE ESTERASE SMALL Leu/uL (NEGATIVE); URINE PROTEIN TRACE mg/dL (<30 mg/dL); URINE UROBILINOGEN 0.2 E.U./dL (<1 E.U./dL)
[2017-02-04 18:03] LABS: URINE APPEARANCE SL CLOUDY (CLEAR); URINE COLOR YELLOW (YELLOW)
[2017-02-04 18:07] LABS: ALB/GLOB RATIO 1.4 (1.1-1.8); ALKALINE PHOSPHATASE 92 U/L (38-126); ALT/SGPT 34 U/L (7-56); AST/SGOT 21 U/L (14-36); BILIRUBIN,TOTAL 1.1 mg/dL (0.2-1.3); BLOOD UREA NITROGEN 10 mg/dL (7-21); CALCIUM 9.4 mg/dL (8.4-10.5); CARBON DIOXIDE 25 mmol/L (21-33); CHLORIDE 106 mmol/L (98-107); GFR AFRICAN-AMERICAN > 60; GLUCOSE,RANDOM 83 mg/dL (70-110); SODIUM 141 mmol/L (132-148); TOTAL PROTEIN 7.7 g/dL (5.8-8.3)
[2017-02-04 18:22] LABS: URINE BACTERIA MANY (NEG); URINE EPITHELIAL CELLS MANY /hpf (0-5); URINE RBC 0 - 2 /hpf (0-2)
--- NOTE | 2017-02-04 19:03 | CT ---
PROCEDURE: CT Abdomen and Pelvis with contrast HISTORY: abdominal pain COMPARISON: 12/05/2016 TECHNIQUE: Contrast dose: 100 mL Omnipaque 350 Radiation dose: Total exam DLP = 501.37 mGy-cm. This CT exam was performed using one or more of the following dose reduction techniques: Automated exposure control, adjustment of the mA and/or kV according to patient size, and/or use of iterative reconstruction technique. FINDINGS: LOWER THORAX: Unremarkable. LIVER: Unremarkable. No gross lesion or ductal dilatation. GALLBLADDER AND BILE DUCTS: Unremarkable. PANCREAS: Unremarkable. No gross lesion or ductal dilatation. SPLEEN: Unremarkable. ADRENALS: Unremarkable. No mass. KIDNEYS AND URETERS: Unremarkable. No hydronephrosis. No solid mass. VASCULATURE: Unremarkable. No aortic aneurysm. BOWEL: Unremarkable. No obstruction. No gross mural thickening. APPENDIX: Normal appendix. PERITONEUM: Ventral abdominal wall mesh. Trace fluid in cul-de-sac. LYMPH NODES: Unremarkable. No enlarged lymph nodes. BLADDER: Nondistended REPRODUCTIVE: Unremarkable uterus. 2.0 cm peripherally enhancing left ovarian cyst. This may represent rupture or involuting left ovarian cyst/follicle. Please correlate. BONES: No acute fracture. OTHER FINDINGS: None. IMPRESSION: l peripherally enhancing left ovarian cysts without deformity of these cysts. This measures 2.0 cm diameter. This may represent a ruptured or involuting cyst/follicle. No other acute abnormality.
[2017-02-04 19:58] VITALS: BP 109/74; PULSE 77
--- NOTE | 2017-02-05 09:20 | CARD ---
APPROVED REPORT EKG Measurement Heart [id number] MD [id number] <Conclusion> Normal sinus rhythm with sinus arrhythmia Normal ECG C/W ECG 01/03/17: The QTc is normal now
--- NOTE | 2017-02-05 09:45 | RAD ---
HISTORY: PES eval COMPARISON: Portable chest 01/02/2017 FINDINGS: LUNGS: No active pulmonary disease. There is improved inspiratory volume. PLEURA: No significant pleural effusion identified, no pneumothorax apparent. CARDIOVASCULAR: Normal. OSSEOUS STRUCTURES: No significant abnormalities. VISUALIZED UPPER ABDOMEN: Normal. OTHER FINDINGS: None. IMPRESSION: No interval acute cardiopulmonary disease appreciated.
== END 2017-02-04 19:58 | disposition home or self-care (01) ==
LOC: ED 16:17
DX: R11.2 Nausea with vomiting, unspecified (principal); R10.9 Unspecified abdominal pain
CPT/HCPCS: 71010; 74177; 80053; 81001; 84702; 84703; 85025; 87086; 93005; 96374; 99283; G0480; J2405; J7040; Q9967

== ENCOUNTER 2017-02-16 19:51 | Emergency (ER) | payer OTHER, MEDICAID ==
[2017-02-16 20:18] VITALS: BMI 30.5
--- NOTE | 2017-02-16 21:24 | ED PDOC ---
Arrival/HPI - General Chief Complaint: Psychiatric Evaluation Time Seen by Provider: 02/16/17 19:58 Historian: Patient - History of Present Illness Narrative History of Present Illness (Text): 02/16/17 20:20 Ольга Slater is a 26 year old female who presents to the Emergency department for psychiatric evaluation. As per EMS, patient was found outside. Patient on arrival to Emergency department is catatonic, refusing to answer questioning. Limited and HPI are limited due to patient's catatonia. family states non compliant with meds 02/17/17 06:29 Time/Duration: Other (tonight) Symptom Onset: Gradual Symptom Course: Unchanged Context: Home Past Medical History - Provider Review Nursing Documentation Reviewed: Yes - Psychiatric Hx Substance Use: No - Anesthesia Hx Anesthesia: No Hx Anesthesia Reactions: No Hx Malignant Hyperthermia: No Family/Social History - Physician Review Nursing Documentation Reviewed: Yes Family/Social History: Unknown Family HX Smoking Status: Unknown If Ever Smoked Hx Alcohol Use: No Hx Substance Use: No Allergies/Home Meds Allergies/Adverse Reactions: Allergies ziprasidone Allergy (Verified 02/16/17 20:17) RASH Home Medications: Home Meds Medication Instructions Recorded Confirmed Atorvastatin [Lipitor] 10 mg PO DIN 02/16/17 02/16/17 FLUoxetine [Prozac] 30 mg PO DAILY 02/16/17 02/16/17 Gabapentin [Neurontin] 100 mg PO TID 02/16/17 02/16/17 LORazepam [Ativan] 2 mg PO HS 02/16/17 02/16/17 Lorazepam [Ativan] 2 mg PO BID 02/16/17 02/16/17 Mirtazapine [Remeron] 15 mg PO HS 02/16/17 02/16/17 QUEtiapine [SEROquel] 300 mg PO HS 02/16/17 02/16/17 Spironolactone [Aldactone] 25 mg PO TID 02/16/17 02/16/17 Review of Systems - Review of Systems Systems not reviewed;Unavailable: Other (Catatonic) Physical Exam Vital Signs Reviewed: Yes Vital Signs Temp Pulse Resp BP Pulse Ox 02/17/17 06:27 66 18 116/72 98 02/17/17 04:15 66 18 118/71 99 02/17/17 02:00 98.5 F 65 18 114/69 99 Temperature: Afebrile Blood Pressure: Normal Pulse: Regular Respiratory Rate: Normal Appearance: Positive for: Well-Appearing, Non-Toxic, Comfortable Pain Distress: None Mental Status: Positive for: other (Catatonic) - Systems Exam Head: Present: Atraumatic, Normocephalic Pupils: Present: PERRL Extroacular Muscles: Present: EOMI Conjunctiva: Present: Normal Mouth: Present: Moist Mucous Membranes Neck: Present: Normal Range of Motion Respiratory/Chest: Present: Clear to Auscultation, Good Air Exchange. No: Respiratory Distress, Accessory Muscle Use Cardiovascular: Present: Regular Rate and Rhythm, Normal S1, S2. No: Murmurs Abdomen: Present: Normal Bowel Sounds. No: Tenderness, Distention, Peritoneal Signs Back: Present: Normal Inspection Upper Extremity: Present: Normal Inspection. No: Cyanosis, Edema Lower Extremity: Present: Normal Inspection. No: Edema Neurological: Present: GCS=15, CN II-XII Intact Skin: Present: Warm, Dry, Normal Color. No: Rashes Psychiatric: Present: Other (Catatonic) Medical Decision Making ED Course and Treatment: 02/16/17 20:20 Impression: 26 year old female brought in for psychiatric evaluation. Plan: -- EKG -- Labs, alcohol level -- Urinalysis, urine drug screen -- Reassess and disposition Progress Notes: Reviewed EKG, NSR at [address]-segment elevations or depressions, no T-wave inversions, normal intervals. 02/16/17 22:45 Pt seen and evaluated by PES screener Pilar, who discussed case with psychiatrist production finisher. [place] [facility] [place]. Pt medically cleared for psychiatric transfer and admission. Chest x-ray negative for any acute process. seen by [facility] [place] screeners accepted and awaiting bed 02/17/17 06:29 - Lab Interpretations Lab Results: 02/16/17 21:32 02/16/17 21:32 Lab Results 02/17/17 01:16: Urine HCG, Qual Negative 02/17/17 01:16: Urine Opiates Screen Negative, Urine Methadone Screen Negative, Ur Barbiturates Screen Negative, Ur Phencyclidine Scrn Negative, Ur Amphetamines Screen Negative, U Benzodiazepines Scrn Negative, U Oth Cocaine Metabols Negative, U Cannabinoids Screen Negative 02/17/17 01:16: Urine Color Yellow, Urine Appearance Clear, Urine pH 6.0, Ur Specific [place] >= 1.030, Urine Protein Trace H, Urine Glucose (UA) Negative, Urine Ketones >=80, Urine Blood Negative, Urine Nitrate Negative, Urine Bilirubin Moderate H, Urine Urobilinogen 1.0 H, Ur Leukocyte Esterase Negative, Urine RBC 0 - 2, Urine WBC 1 - 3, Ur Epithelial Cells 3 - 4, Urine Bacteria Mod 02/16/17 21:32: Alcohol, Quantitative < 10 02/16/17 21:32: Salicylates < 1 L, Acetaminophen < 10.0 L 02/16/17 21:32: Sodium 143, Potassium 4.1, Chloride 104, Carbon Dioxide 28, Anion Gap 15, BUN 11, Creatinine 0.8, Est GFR ( Amer) > 60, Est GFR (Non- Af Amer) > 60, Random Glucose 80, Calcium 9.8, Total Bilirubin 1.1, AST 20, ALT 33, Alkaline Phosphatase 93, Total Protein 8.0, Albumin 4.6, Globulin 3.3, Albumin/Globulin Ratio 1.4 02/16/17 21:32: WBC 6.8, RBC 5.00, Hgb 15.0, Hct 44.4, MCV 88.8, MCH 30.0, MCHC 33.8, RDW 12.8, Plt Count 288, MPV 9.5, Gran % 60.2, Lymph % (Auto) 31.5, [place] % (Auto) 6.0, Eos % (Auto) 2.2, Baso % (Auto) 0.1, Gran # 4.11, Lymph # 2.2, [place] # 0.4, Eos # 0.2, Baso # 0.01 I have reviewed the lab results: Yes - RAD Interpretation Radiology Orders: 02/17/17 02:00 CHEST PORTABLE [RAD] Stat - EKG Interpretation Interpreted by ED Physician: Yes Type: 12 lead EKG - Scribe Statement The provider has reviewed the documentation as recorded by the Kierstenibrogerio Narvaez All medical record entries made by the Kierstenibe were at my direction and personally dictated by me. I have reviewed the chart and agree that the record accurately reflects my personal performance of the history, physical exam, medical decision making, and the department course for this patient. I have also personally directed, reviewed, and agree with the discharge instructions and disposition. Disposition/Present on Arrival - Present on Arrival Any Indicators Present on Arrival: No History of DVT/PE: No History of Uncontrolled Diabetes: No Urinary Catheter: No History of Decub. Ulcer: No History Surgical Site Infection Following: None - Disposition Have Diagnosis and Disposition been Completed?: Yes Diagnosis: Paranoid schizophrenia Disposition[place] [facility] [place] Time: 07:00 Patient Problems: Current Active Problems Problem Status Onset Paranoid schizophrenia Acute Condition: FAIR Additional Instructions: Pt medically cleared for psychiatric transfer and admission. Chest x-ray negative for any acute process. Referrals: Xavier Singh JD, MD [Primary Care Provider] - Follow up with primary
[2017-02-16 21:40] LABS: BASO # 0.01 K/mm3 (0.0-2.0); BASO % 0.1 % (0.0-3.0); EOS # 0.2 (0.0-0.7); EOS % 2.2 % (1.5-5.0); GRAN # 4.11 (1.4-6.5); GRAN % 60.2 % (50.0-68.0); LYMPH # 2.2 (1.2-3.4); LYMPH % 31.5 % (22.0-35.0); MEAN CELL VOLUME 88.8 fl (80.0-105.0); MEAN CORPUSCULAR HGB CONC 33.8 g/dl (31.0-37.0); MEAN PLATELET VOLUME 9.5 fl (7.0-11.0); MONO # 0.4 (0.1-0.6); RED CELL DISTRIBUTION WIDTH 12.8 % (11.5-14.5); WHITE BLOOD COUNT 6.8 10^3/ul (4.5-11.0)
[2017-02-16 21:52] LABS: ALB/GLOB RATIO 1.4 (1.1-1.8); ALBUMIN 4.6 g/dL (3.0-4.8); ALT/SGPT 33 U/L (7-56); AST/SGOT 20 U/L (14-36); BLOOD UREA NITROGEN 11 mg/dL (7-21); CALCIUM 9.8 mg/dL (8.4-10.5); GFR AFRICAN-AMERICAN > 60; GFR NON-AFRICAN AMERICAN > 60
[2017-02-16 22:18] LABS: ACETAMINOPHEN < 10.0 ug/ml (10.0-20.0); SALICYLATE < 1 mg/dL (2.0-20.0)
[2017-02-17 01:33] LABS: URINE BILIRUBIN MODERATE (NEGATIVE); URINE BLOOD NEGATIVE (NEGATIVE); URINE GLUCOSE (UA) NEGATIVE (NEGATIVE); URINE LEUKOCYTE ESTERASE NEGATIVE Leu/uL (NEGATIVE); URINE NITRATE NEGATIVE (NEGATIVE); URINE PROTEIN TRACE mg/dL (<30 mg/dL)
[2017-02-17 01:45] LABS: URINE APPEARANCE CLEAR (CLEAR); URINE COLOR YELLOW (YELLOW)
[2017-02-17 01:48] LABS: URINE BACTERIA MOD (NEG); URINE RBC 0 - 2 /hpf (0-2)
[2017-02-17 02:06] LABS: BARBITURATES, UR NEGATIVE (NEGATIVE); BENZODIAZEPINES, UR NEGATIVE (NEGATIVE); OPIATES, UR NEGATIVE (NEGATIVE); PHENCYCLIDINE, UR NEGATIVE (NEGATIVE)
[2017-02-17 04:48] VITALS: RESP 18; TEMP 98.5
[2017-02-17 06:27] VITALS: O2SAT 98
--- NOTE | 2017-02-17 07:29 | ED PDOC ---
Physical Exam Vital Signs Temp Pulse Resp BP Pulse Ox 02/17/17 06:27 66 18 116/72 98 02/17/17 04:15 66 18 118/71 99 02/17/17 02:00 98.5 F 65 18 114/69 99 Medical Decision Making ED Course and Treatment: 02/17/17 07:25 Patient signed out to me by Dr. Waddell. Patient has been accepted by [facility] [place]. [place]16 [place] [facility] [place] Interpretations Lab Results: 02/16/17 21:32 02/16/17 21:32 Lab Results 02/17/17 01:16: Urine HCG, Qual Negative 02/17/17 01:16: Urine Opiates Screen Negative, Urine Methadone Screen Negative, Ur Barbiturates Screen Negative, Ur Phencyclidine Scrn Negative, Ur Amphetamines Screen Negative, U Benzodiazepines Scrn Negative, U Oth Cocaine Metabols Negative, U Cannabinoids Screen Negative 02/17/17 01:16: Urine Color Yellow, Urine Appearance Clear, Urine pH 6.0, Ur Specific [place] >= 1.030, Urine Protein Trace H, Urine Glucose (UA) Negative, Urine Ketones >=80, Urine Blood Negative, Urine Nitrate Negative, Urine Bilirubin Moderate H, Urine Urobilinogen 1.0 H, Ur Leukocyte Esterase Negative, Urine RBC 0 - 2, Urine WBC 1 - 3, Ur Epithelial Cells 3 - 4, Urine Bacteria Mod 02/16/17 21:32: Alcohol, Quantitative < 10 02/16/17 21:32: Salicylates < 1 L, Acetaminophen < 10.0 L 02/16/17 21:32: Sodium 143, Potassium 4.1, Chloride 104, Carbon Dioxide 28, Anion Gap 15, BUN 11, Creatinine 0.8, Est GFR ( Amer) > 60, Est GFR (Non- Af Amer) > 60, Random Glucose 80, Calcium 9.8, Total Bilirubin 1.1, AST 20, ALT 33, Alkaline Phosphatase 93, Total Protein 8.0, Albumin 4.6, Globulin 3.3, Albumin/Globulin Ratio 1.4 02/16/17 21:32: WBC 6.8, RBC 5.00, Hgb 15.0, Hct 44.4, MCV 88.8, MCH 30.0, MCHC 33.8, RDW 12.8, Plt Count 288, MPV 9.5, Gran % 60.2, Lymph % (Auto) 31.5, [place] % (Auto) 6.0, Eos % (Auto) 2.2, Baso % (Auto) 0.1, Gran # 4.11, Lymph # 2.2, [place] # 0.4, Eos # 0.2, Baso # 0.01 - RAD Interpretation Radiology Orders: 02/17/17 02:00 CHEST PORTABLE [RAD] Stat - Scribe Statement The provider has reviewed the documentation as recorded by the Ced Lilly Provider Scribe Attestation: All medical record entries made by the Kierstenibrogerio were at my direction and personally dictated by me. I have reviewed the chart and agree that the record accurately reflects my personal performance of the history, physical exam, medical decision making, and the department course for this patient. I have also personally directed, reviewed, and agree with the discharge instructions and disposition. Disposition/Present on Arrival - Present on Arrival Any Indicators Present on Arrival: No History of DVT/PE: No History of Uncontrolled Diabetes: No Urinary Catheter: No History of Decub. Ulcer: No History Surgical Site Infection Following: None - Disposition Have Diagnosis and Disposition been Completed?: Yes Diagnosis: Paranoid schizophrenia Disposition: Transfer [facility] [place]position Time: 18:16 Condition: FAIR Additional Instructions: Pt medically cleared for psychiatric transfer and admission. Chest x-ray negative for any acute process. Referrals: Xavier Singh JD, MD [Primary Care Provider] - Follow up with primary
--- NOTE | 2017-02-17 09:07 | CARD ---
APPROVED REPORT EKG Measurement Heart [id number] ND [id number] <Conclusion> Normal sinus rhythm Normal ECG
--- NOTE | 2017-02-17 09:09 | RAD ---
HISTORY: pes COMPARISON: No prior. FINDINGS: LUNGS: The lungs are well inflated and clear. PLEURA: No significant pleural effusion identified, no pneumothorax apparent. CARDIOVASCULAR: Normal. OSSEOUS STRUCTURES: No significant abnormalities. VISUALIZED UPPER ABDOMEN: Normal. OTHER FINDINGS: None. IMPRESSION: No active pulmonary disease.
[2017-02-17 18:18] VITALS: BP 111/66; PULSE 81
== END 2017-02-17 18:18 ==
LOC: EDBD → ED 19:51 → MERGE 19:51 → ED 02-17 18:18
DX: F20.0 Paranoid schizophrenia (principal)
CPT/HCPCS: 71010; 80053; 81001; 84703; 85025; 90791; 93005; 99285; G0480